=== PATIENT | female | born 1965 | race Caucasian/White ===

== ENCOUNTER → 2016-11-02 | Outpatient (CLI) | payer BC ==
[~2016-11-02] MED LIST: DULC5TAB PO; GABA-283 PO; GLYB5TAB5 PO; INSULANT SC; MAGN1TAB25 PO; NORCOBULK PO; VICT18IN SC; VOLT1GEL24 TD; flexeril PO
--- NOTE | 2016-11-25 00:54 | ECWPNPC ---
PATIENT NAME: ZULAY GARRETT : 1965 GENDER: FEMALE VISIT DATE: 11/02/2016 DISCHARGE DATE: 11/02/16 1235 VISIT LOCKED DATE TIME: PHYSICIAN: GLORIA HOYT RESOURCE: GLORIA HOYT REASON FOR APPOINTMENT 1. POST PROCEDURE, BACK HISTORY OF PRESENT ILLNESS HISTORY OF PRESENT ILLNESS: PAIN THE PATIENT DESCRIBES THE PAIN... FALL RISK SCREENING: SCREENING :NO FALLS IN THE PAST YEAR TODAY'S VISIT: NOTES: IS S/P LESB 10/04/16. RATES PAIN TODAY 8/10. NOTES PAIN HAS NOT IMPROVED. IS NOW HAVING INCREASED WEAKNESS, DECREASED SENSATION, AND INCREASED PAIN IN BACK. . CURRENT MEDICATIONS TAKING LANCETS FOR ONE TOUCH ULTRA 2 DEVICE MISCELLANEOUS DIRECTED SC DX : 250.02/ THREE TIMES DAILY, NOTES: USE NEEDED TAKING NOVOFINE 32G X 6 MM MISCELLANEOUS DIRECTED SQ DAILY, NOTES: USE NEEDED TAKING ACCU-CHEK JUAN JOSE TEST STRIP 1 SUBCUTANEOUSLY TWICE A DAY DX 250.00, NOTES: USE NEEDED TAKING BD INSULIN SYRINGE U-100 1 ML SYRINGE 1 EACH SUBCUTANEOUSLY DAILY DX 250.00, NOTES: USE NEEDED TAKING PEN NEEDLES 31G X 6 MM MISCELLANEOUS 1 NEEDLE SQ BEFORE BED, NOTES: USE NEEDED TAKING GLYBURIDE 5 MG TABLET 2 TABLET ORALLY TWICE A DAY NOT-TAKING NORCO 10-325 MG TABLET 1 TABLET ORALLY DAILY PRN PAIN MDD=1, NOTES: NONE IN LAST MONTH NOT-TAKING DRISDOL 50,000 UNITS TABLET 1 TABLET ORAL WEEKLY, NOTES: FEW WEEKS AGO NOT-TAKING MAGNESIUM 200 MG TABLET 2 TABLETS WITH A MEAL ORALLY ONCE A DAY, NOTES: NONE RECENTLY NOT-TAKING METFORMIN HCL 500 MG TABLET 2 TABLET WITH MEALS ORALLY TWICE A DAY, NOTES: 04/17/16@1600 NOT-TAKING DULCOLAX 5 MG TABLET DELAYED RELEASE 1 TABLET NEEDED ORALLY ONCE A DAY, NOTES: NONE RECENTLY NOT-TAKING COLACE 100 MG CAPSULE 1 TABLET ORALLY ONCE A DAY, NOTES: NONE RECENTLY NOT-TAKING VALIUM 10 MG TABLET 1 TABLET NEEDED ORALLY PREPROCEEDURE, NOTES: 04/18/16@0915 NOT-TAKING OXYCODONE HCL 10 MG TABLET 1 TABLET NEEDED ORALLY PREPROCEEDURE, NOTES: 04/18/16@0915 NOT-TAKING PERCOCET 5-325 MG TABLET 1 TABLET NEEDED ORALLY EVERY 6 HRS, NOTES: PRE SEDATE MEDICATION LIST REVIEWED AND RECONCILED WITH THE PATIENT PAST MEDICAL HISTORY OBESITY, MORBID, D/T EXCESS CALORIES HEPATOMEGALY 07/[address], 08/27 LIVER US WITH DIFFUSE FATTY INFILTRATION, NONALCOHOLIC MILD GASTROPARESIS NM 07/27 MRI LSPINE 01/25 - SM L PARACENTRAL DISC PROTRUSION AT L1-2 WITH MINIMAL THECAL SAC COMPRESSION, DIFFUSE DISC BULGE AT L4-5 WITH MINIMAL THECAL SAC COMPRESSION - DR JOHNSON H/O MRSA 07/24 EKG 06/23 - NL DM2 WITH H/O GESTATION DIABETES WITH GASTROPARESIS, [facility] INSULIN USE NONCOMPLIANCE DEPRESSION 04/28 CT CHEST WITH PULM NODULES, FOLLOWS WITH PULM 03/28 COLONOSCOPY, REINDL, REPEAT IN 2 YEARS SUBOPTIMAL PREP CLEMENCIA DEP CHRONIC PAIN, L SPINE, L ANKLE, L HIP VIT D DEF CHRONIC CONSTIPATION ALLERGIES AMITIZA: ANAPHYLAXIS: ALLERGY ETHYL ALCOHOL: RASH: ALLERGY METFORMIN HCL: DYSPNEA: ALLERGY SOCIAL HISTORY GENERAL: TOBACCO USE ARE YOU A:NONSMOKER LEARNING BARRIERS / SPECIAL NEEDS ORIENTED TO PLAN OF CARE: PATIENT, PAIN MANAGEMENT PATIENT, ORIENTED TO PLAN OF CARE: PATIENT, PAIN MANAGEMENT PATIENT. NEW PATIENT PAIN DIARY TODAY'S VISITNOTES FROM 0-10, WHAT LEVEL IS YOUR PAIN TODAY?0 PAIN CLINIC PFS, CLERGY, PUBLIC HEALTH REFERRALS PFS REFERRAL NEEDED?NO CLERGY REFERRAL NEEDED?NO PUBLIC HEALTH REFERRAL NEEDED?NO WAS THE PROVIDER NOTIFIED OF ANY PERTINENT INFO?NO PFS REFERRAL NEEDED?NO CLERGY REFERRAL NEEDED?NO PUBLIC HEALTH REFERRAL NEEDED?NO WAS THE PROVIDER NOTIFIED OF ANY PERTINENT INFO?NO REVIEW OF SYSTEMS CONSTITUTIONAL: ANY CHANGE IN YOUR MEDICAL CONDITION? NO . CHILLS NO . FEVER NO . INFECTION: DO YOU HAVE NEW INFECTIONS? NO . DO YOU HAVE HISTORY OF MRSA? NO . MUSCULOSKELETAL: ANY NEW PATTERNS OF PAIN OR NUMBNESS? YES, PAIN IN THE TOP AND BACK OF LEGS . GASTROENTEROLOGY: ANY NEW CHANGE IN BOWEL CONTROL? NO . GENITOURINARY: ANY NEW CHANGE IN BLADDER CONTROL? YES, FREQUENCY AND URGENCY . IS THERE A CHANCE YOU COULD BE ? NO . HEMATOLOGY/LYMPH: DO YOU TAKE ANY BLOOD THINNERS? (FOR EXAMPLE- COUMADIN, PLAVIX, AGGRENOX, PLATEL, PRADAXA, OR XARELTO) NO . WHEN WAS YOUR LAST DOSE? DATE: TIME: . NEUROLOGY: HAVE YOU FALLEN IN THE PAST 6 MONTHS? YES, LEGS GAVE OUT . ANY NEW EXTREMITY NUMBNESS OR WEAKNESS? YES, BOTH LEGS FEEL HEAVY AND WEAK ON OCCASION . CARDIOLOGY: DO YOU HAVE A PACEMAKER OR DEFIBRILLATOR? NO . RESPIRATORY: HAVE YOU BEEN SICK IN THE PAST WEEK? NO . FEVER NO . FLU LIKE SYMPTOMS? NO . COUGH NO . INTEGUMENTARY: DO YOU HAVE ANY RASHES OR OPEN SORES? YES, SORE IN THE MIDDLE OF BACK . ALLERGIC/IMMUNO: ARE YOU ALLERGIC TO SHELLFISH OR IV DYE? NO . ANY NEW ALLERGIES? NO . PSYCHIATRIC: DO YOU HAVE THOUGHTS OF HURTING YOURSELF OR SOMEONE ELSE? NO . ARE YOU ABUSED, NEGLECTED, OR IN AN UNSAFE ENVIRONMENT? NO . ENDOCRINOLOGY: ARE YOU DIABETIC? YES - 230-240 BLOOD SUGARS . OTHER: DO YOU NEED ANY PRESCRIPTIONS? NO . IF YES, PLEASE LIST: ____ . ANY NEW PROBLEMS WITH YOUR MEDICATIONS? NO . WHEN DID YOU LAST EAT? ____ . WHEN DID YOU LAST DRINK? ____ . WHAT DID YOU LAST DRINK? ____ . NAME OF PERSON DRIVING YOU HOME? ____ . DO YOU HAVE ANY OTHER QUESTIONS OR CONCERNS NO . REVIEWED BY: PROVIDER: GLORIA PAREDES . VITAL SIGNS WT 220 LBS, HT 64.5 IN, BMI 37.18 INDEX, BP 141/88 MM HG, HR 89 /MIN, RR 16 /MIN, TEMP 97.7 F, OXYGEN SAT % 96, NA INITIALS TL 1147, REVIEWED BY: CS. EXAMINATION GENERAL EXAMINATION: PSYCHALERT , ORIENTED X 3 , APPROPRIATE MOOD AND AFFECT . NECK:WELL HEALED CERVICAL INCISIOM. , LIMITED EXTENSION, LIMITED FLEXION, LIMITED ROTATION TO LEFT, LIMITED ROTATION TO RIGHT. LUNGS:CLEAR TO AUSCULTATION BILATERALLY. HEART:HEART RATE REGULAR. MUSCULOSKELETAL:EXQUISITE TENDERNESS OVER BILATERAL TROCANTERS. POINT TENDERNESS OVER LEFT SIJ. SLOW TO STAND . GAIT ANTALGIC. POSITIVE KAYLI SIGN LEFT.. ASSESSMENTS SPONDYLOSIS OF LUMBAR REGION WITHOUT MYELOPATHY OR RADICULOPATHY - M47.816 (PRIMARY) SPONDYLOSIS OF LUMBOSACRAL REGION WITHOUT MYELOPATHY OR RADICULOPATHY - M47.817 SACROILIITIS - M46.1 TREATMENT SPONDYLOSIS OF LUMBAR REGION WITHOUT MYELOPATHY OR RADICULOPATHY START VALIUM TABLET, 5 MG, 1 TABLET NEEDED, ORALLY, TAKE 1 TAB ONE HOUR PRIOR TO TEST, AND ONE TAB ON ARRIVAL FOR TEST MDD=2, 30 DAY(S), 2 [facility] MRI SPINE, L.S. WITHOUT [id number],SUSAN M 11/02/2016 12:19:44 PM > INCREASED RADICULAR PAIN NOTES: REST WHEN NEEDEDGO TO ER IF LOSS OF BOWEL OR BLADDER CONTROL, LOSS OF SENSATION IN LEGS, OR IN ABILITY TO EMPTY BLADDER. PROCEDURE CODES FA211 ESTABILISHED PATIENT [facility] CHARGE FOLLOW UP JANUARY (REASON: NEED PRIOR AUTH FOR MRI) ELECTRONICALLY SIGNED BY MICKEY PARSONS ON 11/24/2016 AT 09:41 AM EST DISCLAIMER : THIS IS A VISIT SUMMARY EXTRACTED FROM THE [employer] CHART. IT IS NOT A COPY OF THE [employer] PROGRESS NOTE. DUANE
== END ==
LOC: M PAIN 11:00
PROVIDERS: ATTEND Nurse Practitioner Family
DX: Z09 Encounter for follow-up examination after completed treatment for conditions other than malignant neoplasm (principal); G89.29 Other chronic pain; M47.816 Spondylosis without myelopathy or radiculopathy, lumbar region; M47.817 Spondylosis without myelopathy or radiculopathy, lumbosacral region; M46.1 Sacroiliitis, not elsewhere classified; E66.9 Obesity, unspecified; Z68.37 Body mass index [BMI] 37.0-37.9, adult; R16.0 Hepatomegaly, not elsewhere classified; M51.26 Other intervertebral disc displacement, lumbar region; E11.9 Type 2 diabetes mellitus without complications; F32.9 Major depressive disorder, single episode, unspecified; E55.9 Vitamin D deficiency, unspecified; J98.9 Respiratory disorder, unspecified; Z87.19 Personal history of other diseases of the digestive system; Z86.14 Personal history of Methicillin resistant Staphylococcus aureus infection; Z86.32 Personal history of gestational diabetes; Z87.891 Personal history of nicotine dependence; Z88.8 Allergy status to other drugs, medicaments and biological substances; Z79.84 Long term (current) use of oral hypoglycemic drugs; Z79.4 Long term (current) use of insulin

== ENCOUNTER → 2016-11-20 | Outpatient (CLI) | payer BC ==
--- NOTE | 2016-11-20 09:55 | REP ---
MRI LUMBAR SPINE WITHOUT CONTRAST: HISTORY: Back pain. COMPARISON: 02/01/2015. Decreased signal intensity on T2-weighted images is present in the L1-2 and L4-5 intervertebral discs. The discs are decreased in height. These findings are consistent with disc degeneration. A small left paracentral disc extrusion is present at the L1-2 level. There is __superior migration of disc material. There is minimal compression of the thecal sac. The L1 nerves exit the neural foramina without compression. There is no disc bulge or herniation at the L2-3, L3-4 and L5-S1 levels. There is hypertrophy of the posterior articulating facets at the L5-S1 level. The nerves exit the neural foramina without compression. A diffuse disc bulge and small left paracentral and intraforaminal disc protrusion are present at the L4-5 level. There is minimal compression of the thecal sac and left L5 nerve as it exits the thecal sac. There is hypertrophy of the posterior articulating facets. The L4 nerves exit the neural foramina without compression. The conus medullaris is normal in appearance terminating at the level of the L1-2 intervertebral disc. A hemangioma is present in the L1 vertebral body. Normal signal intensity is present in the remaining lumbar vertebral bodies. IMPRESSION: 1. Small left paracentral disc extrusion at the L1-2 level with minimal thecal sac compression. 2. Diffuse disc bulge and small left paracentral and intraforaminal disc protrusion at the L4-5 level with minimal compression of the thecal sac and left L5 nerve as it exits the thecal sac. There is no significant change compared to the previous study. Signed by Riley Elliott MD 11/20/2016 10:23 A
== END ==
LOC: M RAD 07:06
PROVIDERS: ATTEND Nurse Practitioner Family
DX: M51.26 Other intervertebral disc displacement, lumbar region (principal)

== ENCOUNTER → 2016-12-01 | Outpatient (CLI) | payer BC ==
--- NOTE | 2016-12-01 09:12 | REP ---
Clinical: Pulmonary nodules. Comparison: 04/15/2015, 12/23/2014, 07/06/2014. Findings: Few scattered bilateral pulmonary nodules measure up to 6 mm (image 68) which are relatively stable or now show small amounts of calcification. The lung villegas are otherwise well aerated, symmetric and clear. No acute consolidation, significant nodule or mass lesion is appreciated. No pleural effusion/reaction or pneumothorax. Tracheobronchial tree is patent. No adenopathy. Mediastinum demonstrates normal heart/pericardium and thoracic aorta. Surrounding musculoskeletal structures intact. Impression: 1. Small scattered nodules measuring up to 6 mm all appear stable and benign and unchanged or less ominous when compared to 07/06/2014. No further follow-up is required for these lesions. 2. No significant, new, acute mediastinal or pleuroparenchymal process. Signed by Edmond Wheeler MD 12/01/2016 09:03 A
== END ==
LOC: M RAD 07:02
PROVIDERS: ATTEND Internal Medicine Pulmonary Disease
DX: R91.8 Other nonspecific abnormal finding of lung field (principal)

== ENCOUNTER → 2016-12-05 | Outpatient (CLI) | payer BC ==
--- NOTE | 2016-12-07 23:51 | ECWPNPC ---
PATIENT NAME: ZULAY GARRETT : 1965 GENDER: FEMALE VISIT DATE: 12/05/2016 DISCHARGE DATE: 12/05/16 1013 VISIT LOCKED DATE TIME: PHYSICIAN: GLORIA HOYT RESOURCE: GLORIA HOYT REASON FOR APPOINTMENT 1. BACK/HIPS HISTORY OF PRESENT ILLNESS HISTORY OF PRESENT ILLNESS: PAIN THE PATIENT DESCRIBES THE PAIN... FALL RISK SCREENING: SCREENING :NO FALLS IN THE PAST YEAR TODAY'S VISIT: NOTES: HAS BEEN HAVING INCREASED PAIN OVER THE LAST FEW WEEKS. RATES PAIN TODAY 8/10. NOTES PAIN IS CENTERED IN LOW BACK WITH RADIATION TO BOTH LEGS. PAIN WAS CENTERED IN SACRUM AND HIPS WITH RADIATION TO LEGS. CAN ONLY SLEEP ON STOMACH. SLEEP HAS BEEN SEVERELY DISRUPTED OVER THE LAST 6-7 MONTHS. CAN NOT TURN ON SIDES AT ALL. COULD NOT WALK. THIGHS GO NUMB WHEN STANDING. FEELS IF CALVES ARE BULGINGLEGS GET SHAKEY WITH STANDING. NOTINE URINARY INCONTIANCE AND URGENCY. . CURRENT MEDICATIONS TAKING LANCETS FOR ONE TOUCH ULTRA 2 DEVICE MISCELLANEOUS DIRECTED SC DX : 250.02/ THREE TIMES DAILY, NOTES: USE NEEDED TAKING ACCU-CHEK JUAN JOSE TEST STRIP 1 SUBCUTANEOUSLY TWICE A DAY DX 250.00, NOTES: USE NEEDED TAKING BD INSULIN SYRINGE U-100 1 ML SYRINGE 1 EACH SUBCUTANEOUSLY DAILY DX 250.00, NOTES: USE NEEDED TAKING PEN NEEDLES 31G X 6 MM MISCELLANEOUS 1 NEEDLE SQ BEFORE BED, NOTES: USE NEEDED TAKING GLYBURIDE 5 MG TABLET 2 TABLET ORALLY TWICE A DAY NOT-TAKING NOVOFINE 32G X 6 MM MISCELLANEOUS DIRECTED SQ DAILY, NOTES: USE NEEDED NOT-TAKING VALIUM 5 MG TABLET 2 TABLET NEEDED ORALLY TAKE 1 TAB ONE HOUR PRIOR TO TEST, AND ONE TAB ON ARRIVAL FOR TEST MDD=2 NOT-TAKING NORCO 10-325 MG TABLET 1 TABLET ORALLY DAILY PRN PAIN MDD=1, NOTES: NONE IN LAST MONTH NOT-TAKING DRISDOL 50,000 UNITS TABLET 1 TABLET ORAL WEEKLY, NOTES: FEW WEEKS AGO NOT-TAKING MAGNESIUM 200 MG TABLET 2 TABLETS WITH A MEAL ORALLY ONCE A DAY, NOTES: NONE RECENTLY NOT-TAKING METFORMIN HCL 500 MG TABLET 2 TABLET WITH MEALS ORALLY TWICE A DAY, NOTES: 04/17/16@1600 NOT-TAKING DULCOLAX 5 MG TABLET DELAYED RELEASE 1 TABLET NEEDED ORALLY ONCE A DAY, NOTES: NONE RECENTLY NOT-TAKING COLACE 100 MG CAPSULE 1 TABLET ORALLY ONCE A DAY, NOTES: NONE RECENTLY NOT-TAKING VALIUM 10 MG TABLET 1 TABLET NEEDED ORALLY PREPROCEEDURE, NOTES: 04/18/16@0915 NOT-TAKING OXYCODONE HCL 10 MG TABLET 1 TABLET NEEDED ORALLY PREPROCEEDURE, NOTES: 04/18/16@0915 NOT-TAKING PERCOCET 5-325 MG TABLET 1 TABLET NEEDED ORALLY EVERY 6 HRS, NOTES: PRE SEDATE MEDICATION LIST REVIEWED AND RECONCILED WITH THE PATIENT PAST MEDICAL HISTORY OBESITY, MORBID, D/T EXCESS CALORIES HEPATOMEGALY 07/[address], 08/27 LIVER US WITH DIFFUSE FATTY INFILTRATION, NONALCOHOLIC MILD GASTROPARESIS NM 07/27 MRI LSPINE 01/25 - SM L PARACENTRAL DISC PROTRUSION AT L1-2 WITH MINIMAL THECAL SAC COMPRESSION, DIFFUSE DISC BULGE AT L4-5 WITH MINIMAL THECAL SAC COMPRESSION - DR JOHNSON H/O MRSA 07/24 EKG 06/23 - NL DM2 WITH H/O GESTATION DIABETES WITH GASTROPARESIS, [facility] INSULIN USE NONCOMPLIANCE DEPRESSION 04/28 CT CHEST WITH PULM NODULES, FOLLOWS WITH PULM 03/28 COLONOSCOPY, REINDL, REPEAT IN 2 YEARS SUBOPTIMAL PREP CLEMENCIA DEP CHRONIC PAIN, L SPINE, L ANKLE, L HIP VIT D DEF CHRONIC CONSTIPATION ALLERGIES AMITIZA: ANAPHYLAXIS: ALLERGY ETHYL ALCOHOL: RASH: ALLERGY METFORMIN HCL: DYSPNEA: ALLERGY SOCIAL HISTORY GENERAL: TOBACCO USE ARE YOU A:NONSMOKER LEARNING BARRIERS / SPECIAL NEEDS ORIENTED TO PLAN OF CARE: PATIENT, PAIN MANAGEMENT PATIENT, ORIENTED TO PLAN OF CARE: PATIENT, PAIN MANAGEMENT PATIENT. NEW PATIENT PAIN DIARY TODAY'S VISITNOTES FROM 0-10, WHAT LEVEL IS YOUR PAIN TODAY?0 PAIN CLINIC PFS, CLERGY, PUBLIC HEALTH REFERRALS PFS REFERRAL NEEDED?NO CLERGY REFERRAL NEEDED?NO PUBLIC HEALTH REFERRAL NEEDED?NO WAS THE PROVIDER NOTIFIED OF ANY PERTINENT INFO?NO PFS REFERRAL NEEDED?NO CLERGY REFERRAL NEEDED?NO PUBLIC HEALTH REFERRAL NEEDED?NO WAS THE PROVIDER NOTIFIED OF ANY PERTINENT INFO?NO REVIEW OF SYSTEMS CONSTITUTIONAL: ANY CHANGE IN YOUR MEDICAL CONDITION? YES, HAD CT OF LUNGS 12/01/16 . CHILLS NO . FEVER NO . INFECTION: DO YOU HAVE NEW INFECTIONS? NO . DO YOU HAVE HISTORY OF MRSA? NO . MUSCULOSKELETAL: ANY NEW PATTERNS OF PAIN OR NUMBNESS? YES, FEELS LIKE A TIGHT BULGE IN BOTH CALVES . GASTROENTEROLOGY: ANY NEW CHANGE IN BOWEL CONTROL? NO . GENITOURINARY: ANY NEW CHANGE IN BLADDER CONTROL? NO . IS THERE A CHANCE YOU COULD BE ? NO . HEMATOLOGY/LYMPH: DO YOU TAKE ANY BLOOD THINNERS? (FOR EXAMPLE- COUMADIN, PLAVIX, AGGRENOX, PLATEL, PRADAXA, OR XARELTO) NO . WHEN WAS YOUR LAST DOSE? DATE: TIME: . NEUROLOGY: HAVE YOU FALLEN IN THE PAST 6 MONTHS? YES 3 TIMES, NO INJURIES . ANY NEW EXTREMITY NUMBNESS OR WEAKNESS? NO . CARDIOLOGY: DO YOU HAVE A PACEMAKER OR DEFIBRILLATOR? NO . RESPIRATORY: HAVE YOU BEEN SICK IN THE PAST WEEK? NO . FEVER NO . FLU LIKE SYMPTOMS? NO . COUGH NO . INTEGUMENTARY: DO YOU HAVE ANY RASHES OR OPEN SORES? NO . ALLERGIC/IMMUNO: ARE YOU ALLERGIC TO SHELLFISH OR IV DYE? NO . ANY NEW ALLERGIES? NO . PSYCHIATRIC: DO YOU HAVE THOUGHTS OF HURTING YOURSELF OR SOMEONE ELSE? NO . ARE YOU ABUSED, NEGLECTED, OR IN AN UNSAFE ENVIRONMENT? NO . ENDOCRINOLOGY: ARE YOU DIABETIC? YES - 250-300. CAN NOT AFFORD ANY INSULIN . OTHER: DO YOU NEED ANY PRESCRIPTIONS? NO . IF YES, PLEASE LIST: ____ . ANY NEW PROBLEMS WITH YOUR MEDICATIONS? NO . WHEN DID YOU LAST EAT? ____ . WHEN DID YOU LAST DRINK? ____ . WHAT DID YOU LAST DRINK? ____ . NAME OF PERSON DRIVING YOU HOME? ____ . DO YOU HAVE ANY OTHER QUESTIONS OR CONCERNS NO . REVIEWED BY: PROVIDER: GLORIA PAREDES . VITAL SIGNS WT 214.0 LBS, HT 64.5 IN, BMI 36.16 INDEX, BP 154/87 MM HG, HR 91 /MIN, RR 16 /MIN, TEMP 96.7 F, OXYGEN SAT % 96%, NA INITIALS SC09:15, REVIEWED BY: AD. EXAMINATION GENERAL EXAMINATION: PSYCHALERT , ORIENTED X 3 , APPROPRIATE MOOD AND AFFECT . NECK:WELL HEALED CERVICAL INCISIOM. , LIMITED EXTENSION, LIMITED FLEXION, LIMITED ROTATION TO LEFT, LIMITED ROTATION TO RIGHT. LUNGS:CLEAR TO AUSCULTATION BILATERALLY. HEART:HEART RATE REGULAR. MUSCULOSKELETAL:EXQUISITE TENDERNESS OVER BILATERAL TROCANTERS. POINT TENDERNESS OVER LEFT SIJ. SLOW TO STAND . GAIT ANTALGIC. POSITIVE KAYLI SIGN LEFT.. ASSESSMENTS SPONDYLOSIS OF LUMBAR REGION WITHOUT MYELOPATHY OR RADICULOPATHY - M47.816 (PRIMARY) SPONDYLOSIS OF LUMBOSACRAL REGION WITHOUT MYELOPATHY OR RADICULOPATHY - M47.817 SACROILIITIS - M46.1 PAIN IN LEFT HIP - M25.552 PAIN IN RIGHT HIP - M25.551 TREATMENT SPONDYLOSIS OF LUMBAR REGION WITHOUT MYELOPATHY OR RADICULOPATHY START MELOXICAM TABLET, 7.5 MG, 1 TABLET, ORALLY, BID WITH FOOD, 30 DAY(S), REFILLS 1 LRY HIP COMPLETE (AP/LAT)[id number] HOYT 12/05/2016 9:56:58 AM > BILATERAL HIP PAIN, LOSS OF ROM NOTES: ICE PACKS TO HIPS NEEDED. PROCEDURE CODES FA211 ESTABILISHED PATIENT [facility] FACILITY CHARGE DISPOSITION & COMMUNICATION FOLLOW UP 3-4 WEEKS ELECTRONICALLY SIGNED BY MICKEY PARSONS ON 12/07/2016 AT 12:55 PM EST DISCLAIMER : THIS IS A VISIT SUMMARY EXTRACTED FROM THE [employer] CHART. IT IS NOT A COPY OF THE [employer] PROGRESS NOTE. DUANE
== END ==
LOC: M PAIN 09:20
PROVIDERS: ATTEND Nurse Practitioner Family
DX: M47.816 Spondylosis without myelopathy or radiculopathy, lumbar region (principal); G89.29 Other chronic pain; M47.817 Spondylosis without myelopathy or radiculopathy, lumbosacral region; M46.1 Sacroiliitis, not elsewhere classified; M25.552 Pain in left hip; M25.551 Pain in right hip; Z79.84 Long term (current) use of oral hypoglycemic drugs; Z79.899 Other long term (current) drug therapy; E55.9 Vitamin D deficiency, unspecified; E11.9 Type 2 diabetes mellitus without complications; Z88.8 Allergy status to other drugs, medicaments and biological substances

== ENCOUNTER 2016-12-11 11:04 | Emergency (ER) | payer BC ==
[2016-12-11] MEDS ORDERED: KETOROLAC 30 MG/ML VIAL (J1885) As Ordered ONE (11:43)
[2016-12-11 12:26] LABS: ANION GAP 9 MEQ/L (8-16); BLOOD UREA NITROGEN 8 MG/DL (7-18); CARBON DIOXIDE LEVEL 27 MEQ/L (21-32); CHLORIDE LEVEL 97 MEQ/L (98-107); CREATININE FOR GFR 0.62 MG/DL (0.55-1.02); GLOMERULAR FILTRATION RATE > 60.0 (>51); GLUCOSE, FASTING 234 MG/DL (70-105); POTASSIUM SERUM 3.4 MEQ/L (3.5-5.1); SODIUM LEVEL 133 MEQ/L (136-145)
[2016-12-11 12:28] LABS: BASO % 0.4 % (0.0-1.0); LARGE UNSTAINED CELL # 0.1 K/mm3 (0.0-0.4); LARGE UNSTAINED CELL % 2.3 % (0.0-4.0); LYMPH # 1.1 K/mm3 (1.5-4.5); LYMPH % 33.7 % (24.0-44.0); MEAN CORPUSCULAR HEMOGLOBIN 30.9 pg (27.0-33.0); MEAN CORPUSCULAR HGB CONC 34.8 g/dl (32.0-36.5); MEAN CORPUSCULAR VOLUME 88.7 fl (80.0-96.0); MONO # 0.3 K/mm3 (0.0-0.8); MONO % 9.8 % (0.0-5.0); NEUTROPHILS # 1.5 K/mm3 (1.8-7.7); NEUTROPHILS % 52.7 % (36.0-66.0); PLATELET COUNT, AUTOMATED 172 k/mm3 (150-450); RED CELL DISTRIBUTION WIDTH 11.6 % (11.5-14.5); WHITE BLOOD COUNT 2.9 K/mm3 (4.0-10.0)
[2016-12-11 13:06] LABS: ERYTHROCYTE SEDIMENTATION RATE 25 mm/hr (0-30)
--- NOTE | 2016-12-11 14:50 | EDDOCDS ---
Physician Documentation [facility] Name: Christiane King Age: 51 yrs Sex: Female : 1965 Arrival Date: 12/11/2016 Time: 11:04 Bed I2 / M2 Private MD: DAY COLON Disposition: 12/11/16 14:38 Discharged to Home/Self Care. Impression: Low back pain - Chronic progession. - Condition is Stable. - Discharge Instructions: Chronic Back Pain. - Medication Reconciliation form. - Follow up: DAY COLON; When: Call to arrange an appointment; Reason: Wound/Symptom Recheck, Recheck today's complaints, Worsening of conditions, Continuance of care. - Problem is chronic. - Symptoms have improved. - Notes: Follow up with pain management as discussed. Historical: - Allergies: anything that contains alcoholdifficulty breathing; metformin; - Home Meds: 1. glyburide 5 mg Oral tab 2 tabs 2 times per day (Last dose: 12/10/2016) 2. Zithromax Z-Dipesh 250 mg Oral tab 1 tab once daily - PMHx: lung nudules; Diabetes - NIDDM: controlled; - PSHx: neck surgery; ankle surgery; Cholecystectomy; Hysterectomy; Oophorectomy- bilateral (May 20, 2013); Cesearean Section; - Social history: Smoking status: Patient uses tobacco products, current every day smoker. No barriers to communication noted, The patient speaks fluent Bots[place], Speaks appropriately for age. - Family history: Not pertinent. - : The pt / caregiver states he / she is not on anticoagulants. Home medication list is obtained from the patient. - Exposure Risk Screening:: None identified. RESOURCE SPECIALIST: 12/11 11:12 LMP N/A - Hysterectomy ead Vital Signs: 11:05 BP 128 / 86; Pulse 95; Resp 18; Temp 98.7(O); Pulse Ox 98% on R/A; Weight 97.07 kg / lr2 214 lbs (R); Height 5 ft. 4 in. (162.56 cm) (R); Pain 10/10; 14:46 BP 108 / 58; Pulse 76; Resp 20; Temp 97.8(O); Pain 0/10; dls 11:05 Body Mass Index 36.73 (97.07 kg, 162.56 cm) lr2 MDM: 11:34 Financial registration complete. lg 11:38 [facility] Payment Agreement was scanned into [email or web address] and attached to record. lg 11:40 IV Saline Lock ordered. cc10 11:40 Undress patient appropriately for examination ordered. cc10 11:40 NS 0.9% 1000 ml IV at 250 mL/hr continuous ordered. cc10 11:40 CBC with Diff Ordered. EDMS 11:40 BMP Ordered. EDMS 11:40 A1C Ordered. EDMS 11:40 UA Ordered. EDMS 11:41 ketorolac 30 mg IVP once ordered. cc10 12:03 ERYTHROCYTE SEDIMENTATION RATE Ordered. EDMS 12:03 C REACTIVE PROTEIN QUANTITATIV Ordered. EDMS 13:29 CBC with Diff Reviewed. cc10 13:29 BMP Reviewed. cc10 13:29 A1C Reviewed. cc10 13:29 C REACTIVE PROTEIN QUANTITATIV Reviewed. cc10 13:29 ERYTHROCYTE SEDIMENTATION RATE Reviewed. cc10 Administered Medications: 11:55 Drug: NS 0.9% 1000 ml [sodium chloride 0.9 % intravenous solution] Route: IV; Rate: 250 dls mL/hr; Site: left antecubital; 11:55 Drug: ketorolac 30 mg [ketorolac 30 mg/mL (1 mL) injection solution (1 mL)] Route: IVP; dls Site: left antecubital; Signatures: Dispatcher [facility] EDClifford Easton RN RN jmk Scott, Debra, RN RN dls Ganter, LoriLee, Reg Reg lg Dunaway, Emily, RN RN ead Coniski, Colin, PA-C PAEdwin cc10 The chart was reviewed and I authenticate all verbal orders and agree with the evaluation and treatment provided.Corrections: (The following items were deleted from the chart) 12:03 11:41 C REACTIVE PROTEIN QUANTITATIV+LAB ordered. EDMS EDMS 12:03 11:41 ERYTHROCYTE SEDIMENTATION RATE+LAB ordered. EDMS EDMS 14:16 14:07 Bladder Scan please ordered. cc10 cc10 Attachments: 11:38 [facility] Payment Agreement lg MTDD
--- NOTE | 2016-12-11 14:50 | EDDOCDS ---
Nurse's Notes [facility] Name: Christiane King Age: 51 yrs Sex: Female : 1965 Arrival Date: 12/11/2016 Time: 11:04 Bed I2 / M2 Private MD: DAY COLON Diagnosis: Low back pain-Chronic progession Presentation: 12/11 11:07 Presenting complaint: Patient states: pt c/o bilateral hip pain, denies known injury. ead reports pain radiates down legs. states pain ongoing for approx 1 year, worsening over the past two days. family member reports "she's been falling a lot lately," pt reports episodes of dizziness with falls. states "I can't empty my bladder when I go to the bathroom.". Adult Sepsis Screening: The patient does not have new or worsening altered mentation. Patient's respiratory rate is less than 22. Systolic blood pressure is greater than 100. Patient has a qSOFA score of 0- Negative Sepsis Screen. Suicide/Homicide risk assessment- the patient denies having any suicidal and/or homicidal ideations and does not present with any other emotional, behavioral or mental health complaints. Status: Patient is not a rn social services or dependent. Transition of care: patient was not received from another setting of care. 11:07 Acuity: LAMAR Level 3 ead 11:07 Method Of Arrival: Wheelchair ead Triage Assessment: 11:12 General: Appears in no apparent distress, Behavior is appropriate for age, cooperative. ead Pain: Location: left hip and right hip Pain currently is 10 out of 10 on a pain scale. HIV screening NA for this visit Offered previously. Neurological: Level of Consciousness is awake, alert, obeys commands, Oriented to person, place, time, Reports dizziness. Respiratory: Airway is patent Respiratory effort is even, unlabored. Derm: Skin is pink, warm & dry. Musculoskeletal: Reports pain in left hip and right hip. SCHEDULE MANAGER: 11:12 LMP N/A - Hysterectomy ead Historical: - Allergies: anything that contains alcoholdifficulty breathing; metformin; - Home Meds: 1. glyburide 5 mg Oral tab 2 tabs 2 times per day (Last dose: 12/10/2016) 2. Zithromax Z-Dipesh 250 mg Oral tab 1 tab once daily - PMHx: lung nudules; Diabetes - NIDDM: controlled; - PSHx: neck surgery; ankle surgery; Cholecystectomy; Hysterectomy; Oophorectomy- bilateral (May 20, 2013); Cesearean Section; - Social history: Smoking status: Patient uses tobacco products, current every day smoker. No barriers to communication noted, The patient speaks fluent Nigerien, Speaks appropriately for age. - Family history: Not pertinent. - : The pt / caregiver states he / she is not on anticoagulants. Home medication list is obtained from the patient. - Exposure Risk Screening:: None identified. Screenin:49 Screening information is obtained from the patient. Fall risk: No risks identified. jmk Assistance ADL's: requires no assistance with activities of daily living. Abuse/DV Screen: The patient / caregiver reports he/she is: not in a situation that causes fear, pain or injury. Nutritional screening: No deficits noted. Advance Directives: Currently, there is no health care proxy. There is no active DNR order. There is no living will. There is no Power of Senior Environmental Technician. Advance directive information has not previously been placed in an [facility] medical record. home support is adequate. Assessment: 11:58 General: Appears in no apparent distress, appears unkept. Obese female. skin warm and jmk dry color satisfactory. Indicates bilateral low back pain with increasing intensity Reports inability to produce urine specimen.. 12:47 General: Appears states pain to low back area has decreased to 3/10 " as long as not jmk moving". presently sitting in upright position as position of comfort. still unable to produce urine spec.. Vital Signs: 11:05 BP 128 / 86; Pulse 95; Resp 18; Temp 98.7(O); Pulse Ox 98% on R/A; Weight 97.07 kg (R); lr2 Height 5 ft. 4 in. (162.56 cm) (R); Pain 10/10; 14:46 BP 108 / 58; Pulse 76; Resp 20; Temp 97.8(O); Pain 0/10; dls 11:05 Body Mass Index 36.73 (97.07 kg, 162.56 cm) lr2 Vitals: 11:05 Log In Time: December 11, 2016 at 11:04. lr2 ED Course: 11:05 Patient visited by Katherine Byers. lr2 11:05 Patient moved to Waiting lr2 11:06 DAY COLON is Private Physician. lr2 11:06 Patient moved to Pre RCE lr2 11:10 Triage Initiated ead 11:14 Patient moved to Triage 2 [facility] 11:33 Min Cho [facility]. cc10 11:33 Amaury Alfonso MD is Attending Physician. cc10 11:33 Patient visited by Min Cho PA-C. cc10 11:33 Patient visited by Min Cho PA-C. cc10 11:38 [facility] Payment Agreement was scanned into [employer] and attached to record. lg 11:41 Patient moved to I2 / M2 jam1 12:00 Inserted saline lock: 20 gauge in right antecubital area. jmk 12:02 A1C Sent. jmk 12:02 BMP Sent. jmk 12:02 CBC with Diff Sent. jmk 12:48 Patient visited by Clifford Gr RN. jmk 12:49 The patient / caregiver is instructed regarding the plan of care and ED course. jmk 14:11 UA Sent. jam1 14:37 DAY COLON is Referral Physician. cc10 14:45 Discontinued IV lock intact, bleeding controlled, pressure dressing applied. No dls procedures done that require assistance. Administered Medications: 11:55 Drug: NS 0.9% 1000 ml [sodium chloride 0.9 % intravenous solution] Route: IV; Rate: 250 dls mL/hr; Site: left antecubital; 11:55 Drug: ketorolac 30 mg [ketorolac 30 mg/mL (1 mL) injection solution (1 mL)] Route: IVP; dls Site: left antecubital; Order Results: Lab Order: CBC with Diff; SPEC'M 12/11/16 11:50 Test: WHITE BLOOD COUNT; Value: 2.9; Range: 4.0-10.0; Abnormal: Below low normal; Units: K/mm3; Status: F Test: RED BLOOD COUNT; Value: 5.03; Range: 4.00-5.40; Units: M/mm3; Status: F Test: HEMOGLOBIN; Value: 15.5; Range: 12.0-16.0; Units: g/dl; Status: F Test: HEMATOCRIT; Value: 44.6; Range: 36.0-47.0; Units: %; Status: F Test: MEAN CORPUSCULAR VOLUME; Value: 88.7; Range: 80.0-96.0; Units: fl; Status: F Test: MEAN CORPUSCULAR HEMOGLOBIN; Value: 30.9; Range: 27.0-33.0; Units: pg; Status: F Test: MEAN CORPUSCULAR HGB CONC; Value: 34.8; Range: 32.0-36.5; Units: g/dl; Status: F Test: RED CELL DISTRIBUTION WIDTH; Value: 11.6; Range: 11.5-14.5; Units: %; Status: F Test: PLATELET COUNT, AUTOMATED; Value: 172; Range: 150-450; Units: k/mm3; Status: F Test: NEUTROPHILS %; Value: 52.7; Range: 36.0-66.0; Units: %; Status: F Test: LYMPH %; Value: 33.7; Range: 24.0-44.0; Units: %; Status: F Test: MONO %; Value: 9.8; Range: 0.0-5.0; Abnormal: Above high normal; Units: %; Status: F Test: EOS %; Value: 1.0; Range: 0.0-3.0; Units: %; Status: F Test: BASO %; Value: 0.4; Range: 0.0-1.0; Units: %; Status: F Test: LARGE UNSTAINED CELL %; Value: 2.3; Range: 0.0-4.0; Units: %; Status: F Test: NEUTROPHILS #; Value: 1.5; Range: 1.8-7.7; Abnormal: Below low normal; Units: K/mm3; Status: F Test: LYMPH #; Value: 1.1; Range: 1.5-4.5; Abnormal: Below low normal; Units: K/mm3; Status: F Test: MONO #; Value: 0.3; Range: 0.0-0.8; Units: K/mm3; Status: F Test: EOS #; Value: 0.0; Range: 0.0-0.50; Units: K/mm3; Status: F Test: BASO #; Value: 0.0; Range: 0.0-0.2; Units: K/mm3; Status: F Test: LARGE UNSTAINED CELL #; Value: 0.1; Range: 0.0-0.4; Units: K/mm3; Status: F Lab Order: BMP; 12/11/16 11:50 Test: GLUCOSE, FASTING; Value: 234; Range: 70-105; Abnormal: Above high normal; Units: MG/DL; Status: F Test: BLOOD UREA NITROGEN; Value: 8; Range: 7-18; Units: MG/DL; Status: F Test: CREATININE FOR GFR; Value: 0.62; Range: 0.55-1.02; Units: MG/DL; Status: F Test: GLOMERULAR FILTRATION RATE; Value: > 60.0; Range: >51; Status: F Test: SODIUM LEVEL; Value: 133; Range: 136-145; Abnormal: Below low normal; Units: MEQ/L; Status: F Test: POTASSIUM SERUM; Value: 3.4; Range: 3.5-5.1; Abnormal: Below low normal; Units: MEQ/L; Status: F Test: CHLORIDE LEVEL; Value: 97; Range: 98-107; Abnormal: Below low normal; Units: MEQ/L; Status: F Test: CARBON DIOXIDE LEVEL; Value: 27; Range: 21-32; Units: MEQ/L; Status: F Test: ANION GAP; Value: 9; Range: 8-16; Units: MEQ/L; Status: F Test: CALCIUM LEVEL; Value: 8.0; Range: 8.5-10.1; Abnormal: Below low normal; Units: MG/DL; Status: F Test Note: ; Units are mL/min/1.73 m2 Chronic Kidney Disease Staging per NKF: Stage I & II GFR >=60 Normal to Mildly Decreased Stage III GFR 30-59 Moderately Decreased Stage IV GFR 15-29 Severely Decreased Stage V GFR <15 Very Little GFR Left ESRD GFR <15 on FABRIC AND ACCESSORIES ESTIMATOR Lab Order: A1C; 12/11/16 11:47 Test: HEMOGLOBIN A1c; Value: 11.7; Range: 4.5-6.2; Abnormal: Above high normal; Units: %; Status: F Test: ESTIMATED AVERAGE GLUCOSE; Value: 289; Range: 60-110; Abnormal: Above high normal; Units: MG/DL; Status: F Lab Order: UA; 12/11/16 14:06 Test: APPEARANCE, URINE; Value: HAZY; Range: CLEAR; Status: F Test: COLOR, URINE; Value: YELLOW; Range: YELLOW; Status: F Test: PH,URINE; Value: 6.0; Range: 5.0-9.0; Units: UNITS; Status: F Test: SPECIFIC GRAVITY URINE AUTO; Value: 1.015; Range: 1.002-1.035; Status: F Test: PROTEIN, URINE AUTO; Value: NEGATIVE; Range: NEGATIVE; Units: mg/dL; Status: F Test: GLUCOSE, URINE (UA) AUTO; Value: 2+; Range: NEGATIVE; Abnormal: Above high normal; Units: mg/dL; Status: F Test: KETONE, URINE AUTO; Value: 1+; Range: NEGATIVE; Abnormal: Above high normal; Units: mg/dL; Status: F Test: UROBILINOGEN, URINE AUTO; Value: 0.2; Range: 0.0-2.0; Units: mg/dL; Status: F Test: BILIRUBIN, URINE AUTO; Value: NEGATIVE; Range: NEGATIVE; Status: F Test: NITRITE, URINE AUTO; Value: NEGATIVE; Range: NEGATIVE; Status: F Test: LEUKOCYTE ESTERASE, URINE AUTO; Value: NEGATIVE; Range: NEGATIVE; Status: F Test: BLOOD, URINE BLOOD; Value: NEGATIVE; Range: NEGATIVE; Status: F Test: WBC, URINE AUTO; Value: 4; Range: 0-3; Abnormal: Above high normal; Units: /HPF; Status: F Test: RBC, URINE AUTO; Value: 2; Range: 0-3; Units: /HPF; Status: F Test: BACTERIA, URINE AUTO; Value: NEGATIVE; Range: NEGATIVE; Status: F Test: SQUAMOUS EPITHELIAL CELL UR AU; Value: 4; Range: 0-6; Units: /HPF; Status: F Test: MUCUS, URINE; Value: SMALL; Range: NEGATIVE; Status: F Test: HYALINE CAST, URINE AUTO; Value: 1; Range: 0-1; Units: /LPF; Status: F Lab Order: ERYTHROCYTE SEDIMENTATION RATE; SPEC' 12/11/16 11:50 Test: ERYTHROCYTE SEDIMENTATION RATE; Value: 25; Range: 0-30; Units: mm/hr; Status: F Lab Order: C REACTIVE PROTEIN QUANTITATIV; SPEC' 02/27/17 11:50 Test: C REACTIVE PROTEIN QUANTITATIV; Value: 0.87; Range: 0.00-0.30; Abnormal: Above high normal; Units: MG/DL; Status: F Outcome: 14:38 Discharge ordered by Provider. cc10 14:46 Discharge Assessment: Patient awake, alert and oriented x 3. No cognitive and/or dls functional deficits noted. Patient verbalized understanding of disposition instructions. patient administered narcotics - no. The following High Risk Discharge criteria are identified: None. Discharged to home ambulatory, with friend. Condition: stable Condition: improved. Discharge instructions given to patient, Instructed on discharge instructions, follow up and referral plans. Demonstrated understanding of instructions, Pt was receptive of discharge instructions/ teaching. No special radiology studies were completed. Property sent home with patient. 14:48 Patient left the ED. dls Signatures: Keiko Marquez, RN RN Clifford Pond,RN RN Flower Cuevas RN RN dls Aury Ponce, FIELD FOREMAN FIELD FOREMAN jam1 Matilda Key, Reg Reg Mi JaramilloRN RN Min Monreal, PA-Amol PA-C cc10 Katherine Byers lr2 Corrections: (The following items were deleted from the chart) 12:03 12:02 ERYTHROCYTE SEDIMENTATION RATE+LAB sent. dee EDMS 12:03 12:02 C REACTIVE PROTEIN QUANTITATIV+LAB sent. dee EDMS DUANE
--- NOTE | 2016-12-13 15:50 | EDDOCDS ---
Nurse's Notes [facility] Name: Christiane King Age: 51 yrs Sex: Female : 1965 Arrival Date: 12/11/2016 Time: 11:04 Bed I2 / M2 Private MD: DAY COLON Diagnosis: Low back pain-Chronic progession Presentation: 12/11 11:07 Presenting complaint: Patient states: pt c/o bilateral hip pain, denies known injury. ead reports pain radiates down legs. states pain ongoing for approx 1 year, worsening over the past two days. family member reports "she's been falling a lot lately," pt reports episodes of dizziness with falls. states "I can't empty my bladder when I go to the bathroom.". Adult Sepsis Screening: The patient does not have new or worsening altered mentation. Patient's respiratory rate is less than 22. Systolic blood pressure is greater than 100. Patient has a qSOFA score of 0- Negative Sepsis Screen. Suicide/Homicide risk assessment- the patient denies having any suicidal and/or homicidal ideations and does not present with any other emotional, behavioral or mental health complaints. Status: Patient is not a consulting services manager or dependent. Transition of care: patient was not received from another setting of care. 11:07 Acuity: LAMAR Level 3 ead 11:07 Method Of Arrival: Wheelchair ead Triage Assessment: 11:12 General: Appears in no apparent distress, Behavior is appropriate for age, cooperative. ead Pain: Location: left hip and right hip Pain currently is 10 out of 10 on a pain scale. HIV screening NA for this visit Offered previously. Neurological: Level of Consciousness is awake, alert, obeys commands, Oriented to person, place, time, Reports dizziness. Respiratory: Airway is patent Respiratory effort is even, unlabored. Derm: Skin is pink, warm & dry. Musculoskeletal: Reports pain in left hip and right hip. ONCOLOGY RADIATION PHYSICIAN: 11:12 LMP N/A - Hysterectomy ead Historical: - Allergies: anything that contains alcoholdifficulty breathing; metformin; - Home Meds: 1. glyburide 5 mg Oral tab 2 tabs 2 times per day (Last dose: 12/10/2016) 2. Zithromax Z-Dipesh 250 mg Oral tab 1 tab once daily - PMHx: lung nudules; Diabetes - NIDDM: controlled; - PSHx: neck surgery; ankle surgery; Cholecystectomy; Hysterectomy; Oophorectomy- bilateral (May 20, 2013); Cesearean Section; - Social history: Smoking status: Patient uses tobacco products, current every day smoker. No barriers to communication noted, The patient speaks fluent Sammarinese, Speaks appropriately for age. - Family history: Not pertinent. - : The pt / caregiver states he / she is not on anticoagulants. Home medication list is obtained from the patient. - Exposure Risk Screening:: None identified. Screenin:49 Screening information is obtained from the patient. Fall risk: No risks identified. jmk Assistance ADL's: requires no assistance with activities of daily living. Abuse/DV Screen: The patient / caregiver reports he/she is: not in a situation that causes fear, pain or injury. Nutritional screening: No deficits noted. Advance Directives: Currently, there is no health care proxy. There is no active DNR order. There is no living will. There is no Power of Health Program Manager. Advance directive information has not previously been placed in an [facility] medical record. home support is adequate. Assessment: 11:58 General: Appears in no apparent distress, appears unkept. Obese female. skin warm and jmk dry color satisfactory. Indicates bilateral low back pain with increasing intensity Reports inability to produce urine specimen.. 12:47 General: Appears states pain to low back area has decreased to 3/10 " as long as not jmk moving". presently sitting in upright position as position of comfort. still unable to produce urine spec.. Vital Signs: 11:05 BP 128 / 86; Pulse 95; Resp 18; Temp 98.7(O); Pulse Ox 98% on R/A; Weight 97.07 kg (R); lr2 Height 5 ft. 4 in. (162.56 cm) (R); Pain 10/10; 14:46 BP 108 / 58; Pulse 76; Resp 20; Temp 97.8(O); Pain 0/10; dls 11:05 Body Mass Index 36.73 (97.07 kg, 162.56 cm) lr2 Vitals: 11:05 Log In Time: December 11, 2016 at 11:04. lr2 ED Course: 11:05 Patient visited by Katherine Byers. lr2 11:05 Patient moved to Waiting lr2 11:06 DAY COLON is Private Physician. lr2 11:06 Patient moved to Pre RCE lr2 11:10 Triage Initiated ead 11:14 Patient moved to Triage 2 [facility] 11:33 Min Cho [facility]. cc10 11:33 Amaury Alfonso MD is Attending Physician. cc10 11:33 Patient visited by Min Cho PA-C. cc10 11:33 Patient visited by Min Cho PA-C. cc10 11:38 [facility] Payment Agreement was scanned into [employer] and attached to record. lg 11:41 Patient moved to I2 / M2 jam1 12:00 Inserted saline lock: 20 gauge in right antecubital area. jmk 12:02 A1C Sent. jmk 12:02 BMP Sent. jmk 12:02 CBC with Diff Sent. jmk 12:48 Patient visited by Clifford Gr RN. jmk 12:49 The patient / caregiver is instructed regarding the plan of care and ED course. jmk 14:11 UA Sent. jam1 14:37 DAY COLON is Referral Physician. cc10 14:45 Discontinued IV lock intact, bleeding controlled, pressure dressing applied. No dls procedures done that require assistance. Administered Medications: 11:55 Drug: NS 0.9% 1000 ml [sodium chloride 0.9 % intravenous solution] Route: IV; Rate: 250 dls mL/hr; Site: left antecubital; 11:55 Drug: ketorolac 30 mg [ketorolac 30 mg/mL (1 mL) injection solution (1 mL)] Route: IVP; dls Site: left antecubital; Order Results: Lab Order: CBC with Diff; SPEC'M 12/11/16 11:50 Test: WHITE BLOOD COUNT; Value: 2.9; Range: 4.0-10.0; Abnormal: Below low normal; Units: K/mm3; Status: F Test: RED BLOOD COUNT; Value: 5.03; Range: 4.00-5.40; Units: M/mm3; Status: F Test: HEMOGLOBIN; Value: 15.5; Range: 12.0-16.0; Units: g/dl; Status: F Test: HEMATOCRIT; Value: 44.6; Range: 36.0-47.0; Units: %; Status: F Test: MEAN CORPUSCULAR VOLUME; Value: 88.7; Range: 80.0-96.0; Units: fl; Status: F Test: MEAN CORPUSCULAR HEMOGLOBIN; Value: 30.9; Range: 27.0-33.0; Units: pg; Status: F Test: MEAN CORPUSCULAR HGB CONC; Value: 34.8; Range: 32.0-36.5; Units: g/dl; Status: F Test: RED CELL DISTRIBUTION WIDTH; Value: 11.6; Range: 11.5-14.5; Units: %; Status: F Test: PLATELET COUNT, AUTOMATED; Value: 172; Range: 150-450; Units: k/mm3; Status: F Test: NEUTROPHILS %; Value: 52.7; Range: 36.0-66.0; Units: %; Status: F Test: LYMPH %; Value: 33.7; Range: 24.0-44.0; Units: %; Status: F Test: MONO %; Value: 9.8; Range: 0.0-5.0; Abnormal: Above high normal; Units: %; Status: F Test: EOS %; Value: 1.0; Range: 0.0-3.0; Units: %; Status: F Test: BASO %; Value: 0.4; Range: 0.0-1.0; Units: %; Status: F Test: LARGE UNSTAINED CELL %; Value: 2.3; Range: 0.0-4.0; Units: %; Status: F Test: NEUTROPHILS #; Value: 1.5; Range: 1.8-7.7; Abnormal: Below low normal; Units: K/mm3; Status: F Test: LYMPH #; Value: 1.1; Range: 1.5-4.5; Abnormal: Below low normal; Units: K/mm3; Status: F Test: MONO #; Value: 0.3; Range: 0.0-0.8; Units: K/mm3; Status: F Test: EOS #; Value: 0.0; Range: 0.0-0.50; Units: K/mm3; Status: F Test: BASO #; Value: 0.0; Range: 0.0-0.2; Units: K/mm3; Status: F Test: LARGE UNSTAINED CELL #; Value: 0.1; Range: 0.0-0.4; Units: K/mm3; Status: F Lab Order: BMP; 12/11/16 11:50 Test: GLUCOSE, FASTING; Value: 234; Range: 70-105; Abnormal: Above high normal; Units: MG/DL; Status: F Test: BLOOD UREA NITROGEN; Value: 8; Range: 7-18; Units: MG/DL; Status: F Test: CREATININE FOR GFR; Value: 0.62; Range: 0.55-1.02; Units: MG/DL; Status: F Test: GLOMERULAR FILTRATION RATE; Value: > 60.0; Range: >51; Status: F Test: SODIUM LEVEL; Value: 133; Range: 136-145; Abnormal: Below low normal; Units: MEQ/L; Status: F Test: POTASSIUM SERUM; Value: 3.4; Range: 3.5-5.1; Abnormal: Below low normal; Units: MEQ/L; Status: F Test: CHLORIDE LEVEL; Value: 97; Range: 98-107; Abnormal: Below low normal; Units: MEQ/L; Status: F Test: CARBON DIOXIDE LEVEL; Value: 27; Range: 21-32; Units: MEQ/L; Status: F Test: ANION GAP; Value: 9; Range: 8-16; Units: MEQ/L; Status: F Test: CALCIUM LEVEL; Value: 8.0; Range: 8.5-10.1; Abnormal: Below low normal; Units: MG/DL; Status: F Test Note: ; Units are mL/min/1.73 m2 Chronic Kidney Disease Staging per NKF: Stage I & II GFR >=60 Normal to Mildly Decreased Stage III GFR 30-59 Moderately Decreased Stage IV GFR 15-29 Severely Decreased Stage V GFR <15 Very Little GFR Left ESRD GFR <15 on NICKING MACHINE OPERATOR Lab Order: A1C; 12/11/16 11:47 Test: HEMOGLOBIN A1c; Value: 11.7; Range: 4.5-6.2; Abnormal: Above high normal; Units: %; Status: F Test: ESTIMATED AVERAGE GLUCOSE; Value: 289; Range: 60-110; Abnormal: Above high normal; Units: MG/DL; Status: F Lab Order: UA; 12/11/16 14:06 Test: APPEARANCE, URINE; Value: HAZY; Range: CLEAR; Status: F Test: COLOR, URINE; Value: YELLOW; Range: YELLOW; Status: F Test: PH,URINE; Value: 6.0; Range: 5.0-9.0; Units: UNITS; Status: F Test: SPECIFIC GRAVITY URINE AUTO; Value: 1.015; Range: 1.002-1.035; Status: F Test: PROTEIN, URINE AUTO; Value: NEGATIVE; Range: NEGATIVE; Units: mg/dL; Status: F Test: GLUCOSE, URINE (UA) AUTO; Value: 2+; Range: NEGATIVE; Abnormal: Above high normal; Units: mg/dL; Status: F Test: KETONE, URINE AUTO; Value: 1+; Range: NEGATIVE; Abnormal: Above high normal; Units: mg/dL; Status: F Test: UROBILINOGEN, URINE AUTO; Value: 0.2; Range: 0.0-2.0; Units: mg/dL; Status: F Test: BILIRUBIN, URINE AUTO; Value: NEGATIVE; Range: NEGATIVE; Status: F Test: NITRITE, URINE AUTO; Value: NEGATIVE; Range: NEGATIVE; Status: F Test: LEUKOCYTE ESTERASE, URINE AUTO; Value: NEGATIVE; Range: NEGATIVE; Status: F Test: BLOOD, URINE BLOOD; Value: NEGATIVE; Range: NEGATIVE; Status: F Test: WBC, URINE AUTO; Value: 4; Range: 0-3; Abnormal: Above high normal; Units: /HPF; Status: F Test: RBC, URINE AUTO; Value: 2; Range: 0-3; Units: /HPF; Status: F Test: BACTERIA, URINE AUTO; Value: NEGATIVE; Range: NEGATIVE; Status: F Test: SQUAMOUS EPITHELIAL CELL UR AU; Value: 4; Range: 0-6; Units: /HPF; Status: F Test: MUCUS, URINE; Value: SMALL; Range: NEGATIVE; Status: F Test: HYALINE CAST, URINE AUTO; Value: 1; Range: 0-1; Units: /LPF; Status: F Lab Order: ERYTHROCYTE SEDIMENTATION RATE; SPEC' 12/11/16 11:50 Test: ERYTHROCYTE SEDIMENTATION RATE; Value: 25; Range: 0-30; Units: mm/hr; Status: F Lab Order: C REACTIVE PROTEIN QUANTITATIV; SPEC' 02/27/17 11:50 Test: C REACTIVE PROTEIN QUANTITATIV; Value: 0.87; Range: 0.00-0.30; Abnormal: Above high normal; Units: MG/DL; Status: F Outcome: 14:38 Discharge ordered by Provider. cc10 14:46 Discharge Assessment: Patient awake, alert and oriented x 3. No cognitive and/or dls functional deficits noted. Patient verbalized understanding of disposition instructions. patient administered narcotics - no. The following High Risk Discharge criteria are identified: None. Discharged to home ambulatory, with friend. Condition: stable Condition: improved. Discharge instructions given to patient, Instructed on discharge instructions, follow up and referral plans. Demonstrated understanding of instructions, Pt was receptive of discharge instructions/ teaching. No special radiology studies were completed. Property sent home with patient. 14:48 Patient left the ED. dls Signatures: Keiko Marquez, RN RN Clifford Pond,RN RN Flower Cuevas RN RN dls Aury Ponce, LIQUEFIER LIQUEFIER jam1 Matilda Key, Reg Reg Mi JaramilloRN RN Min Monreal, PA-Amol PA-C cc10 Katherine Byers2 Corrections: (The following items were deleted from the chart) 12:03 12:02 ERYTHROCYTE SEDIMENTATION RATE+LAB sent. dee EDMS 12:03 12:02 C REACTIVE PROTEIN QUANTITATIV+LAB sent. dee EDMS Chart Complete DUANE
--- NOTE | 2016-12-13 15:50 | EDDOCDS ---
Physician Documentation [facility] Name: Christiane King Age: 51 yrs Sex: Female : 1965 Arrival Date: 12/11/2016 Time: 11:04 Bed I2 / M2 Private MD: DAY COLON Disposition: 12/11/16 14:38 Discharged to Home/Self Care. Impression: Low back pain - Chronic progession. - Condition is Stable. - Discharge Instructions: Chronic Back Pain. - Medication Reconciliation form. - Follow up: DAY COLON; When: Call to arrange an appointment; Reason: Wound/Symptom Recheck, Recheck today's complaints, Worsening of conditions, Continuance of care. - Problem is chronic. - Symptoms have improved. - Notes: Follow up with pain management as discussed. Historical: - Allergies: anything that contains alcoholdifficulty breathing; metformin; - Home Meds: 1. glyburide 5 mg Oral tab 2 tabs 2 times per day (Last dose: 12/10/2016) 2. Zithromax Z-Dipesh 250 mg Oral tab 1 tab once daily - PMHx: lung nudules; Diabetes - NIDDM: controlled; - PSHx: neck surgery; ankle surgery; Cholecystectomy; Hysterectomy; Oophorectomy- bilateral (May 20, 2013); Cesearean Section; - Social history: Smoking status: Patient uses tobacco products, current every day smoker. No barriers to communication noted, The patient speaks fluent British, Speaks appropriately for age. - Family history: Not pertinent. - : The pt / caregiver states he / she is not on anticoagulants. Home medication list is obtained from the patient. - Exposure Risk Screening:: None identified. 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 4 in. (162.56 cm) (R); Pain 10/10; 14:46 BP 108 / 58; Pulse 76; Resp 20; Temp 97.8(O); Pain 0/10; dls 11:05 Body Mass Index 36.73 (97.07 kg, 162.56 cm) lr2 MDM: 11:34 Financial registration complete. lg 11:38 [facility] Payment Agreement was scanned into [employer] and attached to record. lg 11:40 IV Saline Lock ordered. cc10 11:40 Undress patient appropriately for examination ordered. cc10 11:40 NS 0.9% 1000 ml IV at 250 mL/hr continuous ordered. cc10 11:40 CBC with Diff Ordered. EDMS 11:40 BMP Ordered. EDMS 11:40 A1C Ordered. EDMS 11:40 UA Ordered. EDMS 11:41 ketorolac 30 mg IVP once ordered. cc10 12:03 ERYTHROCYTE SEDIMENTATION RATE Ordered. EDMS 12:03 C REACTIVE PROTEIN QUANTITATIV Ordered. EDMS 13:29 CBC with Diff Reviewed. cc10 13:29 BMP Reviewed. cc10 13:29 A1C Reviewed. cc10 13:29 C REACTIVE PROTEIN QUANTITATIV Reviewed. cc10 13:29 ERYTHROCYTE SEDIMENTATION RATE Reviewed. cc10 Administered Medications: 11:55 Drug: NS 0.9% 1000 ml [sodium chloride 0.9 % intravenous solution] Route: IV; Rate: 250 dls mL/hr; Site: left antecubital; 11:55 Drug: ketorolac 30 mg [ketorolac 30 mg/mL (1 mL) injection solution (1 mL)] Route: IVP; dls Site: left antecubital; Signatures: Dispatcher [facility] EDClifford Easton RN RN jmk Scott, Debra, RN RN dls Ganter, LoriLee, Reg Reg lg Dunaway, Emily, RN RN ead Coniski, Colin, PA-C PAEdwin cc10 The chart was reviewed and I authenticate all verbal orders and agree with the evaluation and treatment provided.Corrections: (The following items were deleted from the chart) 12:03 11:41 C REACTIVE PROTEIN QUANTITATIV+LAB ordered. EDMS EDMS 12:03 11:41 ERYTHROCYTE SEDIMENTATION RATE+LAB ordered. EDMS EDMS 14:16 14:07 Bladder Scan please ordered. cc10 cc10 Attachments: 11:38 [facility] Payment Agreement lg Chart Complete MTDD
--- NOTE | 2016-12-13 15:50 | EDDOCDS ---
Physician Documentation [facility] Name: Christiane King Age: 51 yrs Sex: Female : 1965 Arrival Date: 12/11/2016 Time: 11:04 Bed I2 / M2 Private MD: DAY COLON Disposition: 12/11/16 14:38 Discharged to Home/Self Care. Impression: Low back pain - Chronic progession. - Condition is Stable. - Discharge Instructions: Chronic Back Pain. - Medication Reconciliation form. - Follow up: DAY COLON; When: Call to arrange an appointment; Reason: Wound/Symptom Recheck, Recheck today's complaints, Worsening of conditions, Continuance of care. - Problem is chronic. - Symptoms have improved. - Notes: Follow up with pain management as discussed. Historical: - Allergies: anything that contains alcoholdifficulty breathing; metformin; - Home Meds: 1. glyburide 5 mg Oral tab 2 tabs 2 times per day (Last dose: 12/10/2016) 2. Zithromax Z-Dipesh 250 mg Oral tab 1 tab once daily - PMHx: lung nudules; Diabetes - NIDDM: controlled; - PSHx: neck surgery; ankle surgery; Cholecystectomy; Hysterectomy; Oophorectomy- bilateral (May 20, 2013); Cesearean Section; - Social history: Smoking status: Patient uses tobacco products, current every day smoker. No barriers to communication noted, The patient speaks fluent Iraqi, Speaks appropriately for age. - Family history: Not pertinent. - : The pt / caregiver states he / she is not on anticoagulants. Home medication list is obtained from the patient. - Exposure Risk Screening:: None identified. 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 4 in. (162.56 cm) (R); Pain 10/10; 14:46 BP 108 / 58; Pulse 76; Resp 20; Temp 97.8(O); Pain 0/10; dls 11:05 Body Mass Index 36.73 (97.07 kg, 162.56 cm) lr2 MDM: 11:34 Financial registration complete. lg 11:38 [facility] Payment Agreement was scanned into [employer] and attached to record. lg 11:40 IV Saline Lock ordered. cc10 11:40 Undress patient appropriately for examination ordered. cc10 11:40 NS 0.9% 1000 ml IV at 250 mL/hr continuous ordered. cc10 11:40 CBC with Diff Ordered. EDMS 11:40 BMP Ordered. EDMS 11:40 A1C Ordered. EDMS 11:40 UA Ordered. EDMS 11:41 ketorolac 30 mg IVP once ordered. cc10 12:03 ERYTHROCYTE SEDIMENTATION RATE Ordered. EDMS 12:03 C REACTIVE PROTEIN QUANTITATIV Ordered. EDMS 13:29 CBC with Diff Reviewed. cc10 13:29 BMP Reviewed. cc10 13:29 A1C Reviewed. cc10 13:29 C REACTIVE PROTEIN QUANTITATIV Reviewed. cc10 13:29 ERYTHROCYTE SEDIMENTATION RATE Reviewed. cc10 Administered Medications: 11:55 Drug: NS 0.9% 1000 ml [sodium chloride 0.9 % intravenous solution] Route: IV; Rate: 250 dls mL/hr; Site: left antecubital; 11:55 Drug: ketorolac 30 mg [ketorolac 30 mg/mL (1 mL) injection solution (1 mL)] Route: IVP; dls Site: left antecubital; Signatures: Dispatcher [facility] EDClifford Easton RN RN jmk Scott, Debra, RN RN dls Ganter, LoriLee, Reg Reg lg Dunaway, Emily, RN RN ead Coniski, Colin, PA-C PAEdwin cc10 The chart was reviewed and I authenticate all verbal orders and agree with the evaluation and treatment provided.Corrections: (The following items were deleted from the chart) 12:03 11:41 C REACTIVE PROTEIN QUANTITATIV+LAB ordered. EDMS EDMS 12:03 11:41 ERYTHROCYTE SEDIMENTATION RATE+LAB ordered. EDMS EDMS 14:16 14:07 Bladder Scan please ordered. cc10 cc10 Attachments: 11:38 [facility] Payment Agreement lg Chart Complete MTDD
== END 2016-12-11 14:48 | disposition home or self-care (01) ==
LOC: M ED 11:04
DX: M54.5 Low back pain (principal); G89.29 Other chronic pain; E11.9 Type 2 diabetes mellitus without complications; R91.8 Other nonspecific abnormal finding of lung field; F17.210 Nicotine dependence, cigarettes, uncomplicated; Z79.899 Other long term (current) drug therapy; Z88.8 Allergy status to other drugs, medicaments and biological substances
CPT/HCPCS: 80048; 81001; 83036; 85025; 85652; 86140; 96374; 99284; J1885

== ENCOUNTER → 2017-01-02 | Outpatient (CLI) | payer BC ==
--- NOTE | 2017-01-06 00:13 | ECWPNPC ---
PATIENT NAME: ZULAY GARRETT : 1965 GENDER: FEMALE VISIT DATE: 01/02/2017 DISCHARGE DATE: 01/02/17 1227 VISIT LOCKED DATE TIME: PHYSICIAN: GLORIA HOYT RESOURCE: GLORIA HOYT REASON FOR APPOINTMENT 1. BACK/LEGS/HIPS HISTORY OF PRESENT ILLNESS HISTORY OF PRESENT ILLNESS: PAIN THE PATIENT DESCRIBES THE PAIN... FALL RISK SCREENING: SCREENING :NO FALLS IN THE PAST YEAR TODAY'S VISIT: NOTES: RATES PAIN LEVEL TODAY 5/10. DESCRIBES PAIN TENDER. NOTES PAIN IS CENTER LOW BACK WITH RADIATION TO THE HIPS AND LEGS.. CURRENT MEDICATIONS TAKING LANCETS FOR ONE TOUCH ULTRA 2 DEVICE MISCELLANEOUS DIRECTED SC DX : 250.02/ THREE TIMES DAILY, NOTES: USE NEEDED TAKING ACCU-CHEK JUAN JOSE TEST STRIP 1 SUBCUTANEOUSLY TWICE A DAY DX 250.00, NOTES: USE NEEDED TAKING BD INSULIN SYRINGE U-100 1 ML SYRINGE 1 EACH SUBCUTANEOUSLY DAILY DX 250.00, NOTES: USE NEEDED TAKING PEN NEEDLES 31G X 6 MM MISCELLANEOUS 1 NEEDLE SQ BEFORE BED, NOTES: USE NEEDED TAKING GLYBURIDE 5 MG TABLET 2 TABLET ORALLY TWICE A DAY TAKING MELOXICAM 7.5 MG TABLET 1 TABLET ORALLY BID WITH FOOD, NOTES: DIDN'T GET IT NOT-TAKING NOVOFINE 32G X 6 MM MISCELLANEOUS DIRECTED SQ DAILY, NOTES: USE NEEDED NOT-TAKING VALIUM 5 MG TABLET 2 TABLET NEEDED ORALLY TAKE 1 TAB ONE HOUR PRIOR TO TEST, AND ONE TAB ON ARRIVAL FOR TEST MDD=2 NOT-TAKING NORCO 10-325 MG TABLET 1 TABLET ORALLY DAILY PRN PAIN MDD=1, NOTES: NONE IN LAST MONTH NOT-TAKING DRISDOL 50,000 UNITS TABLET 1 TABLET ORAL WEEKLY, NOTES: FEW WEEKS AGO NOT-TAKING MAGNESIUM 200 MG TABLET 2 TABLETS WITH A MEAL ORALLY ONCE A DAY, NOTES: NONE RECENTLY NOT-TAKING METFORMIN HCL 500 MG TABLET 2 TABLET WITH MEALS ORALLY TWICE A DAY, NOTES: 04/17/16@1600 NOT-TAKING DULCOLAX 5 MG TABLET DELAYED RELEASE 1 TABLET NEEDED ORALLY ONCE A DAY, NOTES: NONE RECENTLY NOT-TAKING COLACE 100 MG CAPSULE 1 TABLET ORALLY ONCE A DAY, NOTES: NONE RECENTLY NOT-TAKING VALIUM 10 MG TABLET 1 TABLET NEEDED ORALLY PREPROCEEDURE, NOTES: 7/5/16@0915 NOT-TAKING OXYCODONE HCL 10 MG TABLET 1 TABLET NEEDED ORALLY PREPROCEEDURE, NOTES: 04/18/16@0915 NOT-TAKING PERCOCET 5-325 MG TABLET 1 TABLET NEEDED ORALLY EVERY 6 HRS, NOTES: PRE SEDATE MEDICATION LIST REVIEWED AND RECONCILED WITH THE PATIENT PAST MEDICAL HISTORY OBESITY, MORBID, D/T EXCESS CALORIES HEPATOMEGALY 07/[address], 08/27 LIVER US WITH DIFFUSE FATTY INFILTRATION, NONALCOHOLIC MILD GASTROPARESIS NM 07/27 MRI LSPINE 01/25 - SM L PARACENTRAL DISC PROTRUSION AT L1-2 WITH MINIMAL THECAL SAC COMPRESSION, DIFFUSE DISC BULGE AT L4-5 WITH MINIMAL THECAL SAC COMPRESSION - DR JOHNSON H/O MRSA 07/24 EKG 06/23 - NL DM2 WITH H/O GESTATION DIABETES WITH GASTROPARESIS, MCC INSULIN USE NONCOMPLIANCE DEPRESSION 04/28 CT CHEST WITH PULM NODULES, FOLLOWS WITH PULM 03/28 COLONOSCOPY, REINDL, REPEAT IN 2 YEARS SUBOPTIMAL PREP CLEMENCIA DEP CHRONIC PAIN, L SPINE, L ANKLE, L HIP VIT D DEF CHRONIC CONSTIPATION ALLERGIES AMITIZA: ANAPHYLAXIS: ALLERGY ETHYL ALCOHOL: RASH: ALLERGY METFORMIN HCL: DYSPNEA: ALLERGY SOCIAL HISTORY GENERAL: TOBACCO USE ARE YOU A:NONSMOKER LEARNING BARRIERS / SPECIAL NEEDS ORIENTED TO PLAN OF CARE: PATIENT, PAIN MANAGEMENT PATIENT, ORIENTED TO PLAN OF CARE: PATIENT, PAIN MANAGEMENT PATIENT. NEW PATIENT PAIN DIARY TODAY'S VISITNOTES FROM 0-10, WHAT LEVEL IS YOUR PAIN TODAY?0 PAIN CLINIC PFS, CLERGY, PUBLIC HEALTH REFERRALS PFS REFERRAL NEEDED?NO CLERGY REFERRAL NEEDED?NO PUBLIC HEALTH REFERRAL NEEDED?NO WAS THE PROVIDER NOTIFIED OF ANY PERTINENT INFO?NO PFS REFERRAL NEEDED?NO CLERGY REFERRAL NEEDED?NO PUBLIC HEALTH REFERRAL NEEDED?NO WAS THE PROVIDER NOTIFIED OF ANY PERTINENT INFO?NO REVIEW OF SYSTEMS CONSTITUTIONAL: ANY CHANGE IN YOUR MEDICAL CONDITION? NO . CHILLS NO . FEVER NO . INFECTION: DO YOU HAVE NEW INFECTIONS? NO . DO YOU HAVE HISTORY OF MRSA? NO . MUSCULOSKELETAL: ANY NEW PATTERNS OF PAIN OR NUMBNESS? NO . GASTROENTEROLOGY: ANY NEW CHANGE IN BOWEL CONTROL? NO . GENITOURINARY: ANY NEW CHANGE IN BLADDER CONTROL? NO . IS THERE A CHANCE YOU COULD BE ? NO . HEMATOLOGY/LYMPH: DO YOU TAKE ANY BLOOD THINNERS? (FOR EXAMPLE- COUMADIN, PLAVIX, AGGRENOX, PLATEL, PRADAXA, OR XARELTO) NO . WHEN WAS YOUR LAST DOSE? DATE: TIME: . NEUROLOGY: HAVE YOU FALLEN IN THE PAST 6 MONTHS? NO . ANY NEW EXTREMITY NUMBNESS OR WEAKNESS? NO . CARDIOLOGY: DO YOU HAVE A PACEMAKER OR DEFIBRILLATOR? NO . RESPIRATORY: HAVE YOU BEEN SICK IN THE PAST WEEK? YES . FEVER NO . FLU LIKE SYMPTOMS? NO . COUGH YES . INTEGUMENTARY: DO YOU HAVE ANY RASHES OR OPEN SORES? NO . ALLERGIC/IMMUNO: ARE YOU ALLERGIC TO SHELLFISH OR IV DYE? NO . ANY NEW ALLERGIES? NO . PSYCHIATRIC: DO YOU HAVE THOUGHTS OF HURTING YOURSELF OR SOMEONE ELSE? NO . ARE YOU ABUSED, NEGLECTED, OR IN AN UNSAFE ENVIRONMENT? NO . ENDOCRINOLOGY: ARE YOU DIABETIC? YES - UNABLE TO AFFORD INSULIN PRESCRIBED. REPORTS BLOOD SUGARS IN THE 200'S&NBSP;. OTHER: DO YOU NEED ANY PRESCRIPTIONS? NO . IF YES, PLEASE LIST: ____ . ANY NEW PROBLEMS WITH YOUR MEDICATIONS? NO . WHEN DID YOU LAST EAT? ____ . WHEN DID YOU LAST DRINK? ____ . WHAT DID YOU LAST DRINK? ____ . NAME OF PERSON DRIVING YOU HOME? ____ . DO YOU HAVE ANY OTHER QUESTIONS OR CONCERNS NO . REVIEWED BY: PROVIDER: . VITAL SIGNS WT 213.6 LBS, HT 64.5 IN, BMI 36.09 INDEX, BP 140/88 MM HG, HR 89 /MIN, RR 18 /MIN, TEMP 98.0 F, OXYGEN SAT % 98, NA INITIALS HS, REVIEWED BY: CS. EXAMINATION GENERAL EXAMINATION: PSYCHALERT , ORIENTED X 3 , APPROPRIATE MOOD AND AFFECT . LUNGS:CLEAR TO AUSCULTATION BILATERALLY. HEART:HEART RATE REGULAR. MUSCULOSKELETAL:TENDERNESS OVER BILATERAL TROCANTERS. POINT TENDERNESS OVER LEFT SIJ. . GAIT ANTALGIC. POSITIVE KAYLI SIGN LEFT. . ASSESSMENTS SPONDYLOSIS OF LUMBAR REGION WITHOUT MYELOPATHY OR RADICULOPATHY - M47.816 (PRIMARY) SPONDYLOSIS OF LUMBOSACRAL REGION WITHOUT MYELOPATHY OR RADICULOPATHY - M47.817 SACROILIITIS - M46.1 PAIN IN LEFT HIP - M25.552 PAIN IN RIGHT HIP - M25.551 TREATMENT SPONDYLOSIS OF LUMBAR REGION WITHOUT MYELOPATHY OR RADICULOPATHY START MELOXICAM TABLET, 15 MG, 1 TABLET, ORALLY, ONCE A DAY, 30 DAY(S), 30, REFILLS 1 INJECTION FACET JOINT/NERVE LUMBAR/SACRALGLORIA HOYT 01/02/2017 12:16:11 PM > BILATERAL DIAGNOSTIC LUMBAR FACET BLOCK L3-4, L4-5 NOTES: CHECK WITH [facility] ABOUT JOB RETRAININGMELOXICAM INFORMATION GIVEN. PROCEDURE CODES FA211 ESTABILISHED PATIENT [facility] CHARGE DISPOSITION & COMMUNICATION FOLLOW UP 2 WEEKS AFTER INJECTION (REASON: CHECK AUTH FOR DIAGNOSTIC L3-4, L4-5 LUMBAR FACET BLOCK) ELECTRONICALLY SIGNED BY MICKEY PARSONS ON 01/05/2017 AT 06:16 PM EDT DISCLAIMER : THIS IS A VISIT SUMMARY EXTRACTED FROM THE [employer] CHART. IT IS NOT A COPY OF THE [employer] PROGRESS NOTE. DUANE
== END ==
LOC: M PAIN 11:00
PROVIDERS: ATTEND Nurse Practitioner Family
DX: Z09 Encounter for follow-up examination after completed treatment for conditions other than malignant neoplasm (principal); G89.29 Other chronic pain; M47.816 Spondylosis without myelopathy or radiculopathy, lumbar region; M47.817 Spondylosis without myelopathy or radiculopathy, lumbosacral region; M46.1 Sacroiliitis, not elsewhere classified; M25.552 Pain in left hip; M25.551 Pain in right hip; E11.43 Type 2 diabetes mellitus with diabetic autonomic (poly)neuropathy; F32.9 Major depressive disorder, single episode, unspecified; F17.218 Nicotine dependence, cigarettes, with other nicotine-induced disorders; E55.9 Vitamin D deficiency, unspecified; E66.9 Obesity, unspecified; Z68.36 Body mass index [BMI] 36.0-36.9, adult; Z91.19 Patient's noncompliance with other medical treatment and regimen; Z88.8 Allergy status to other drugs, medicaments and biological substances; L23.89 Allergic contact dermatitis due to other agents; Z79.84 Long term (current) use of oral hypoglycemic drugs; Z79.899 Other long term (current) drug therapy

== ENCOUNTER → 2017-01-09 | Outpatient (REF) | payer BC ==
[2017-01-09 14:26] LABS: BASO % 0.5 % (0.0-1.0); EOS # 0.1 K/mm3 (0.0-0.50); EOS % 0.9 % (0.0-3.0); LARGE UNSTAINED CELL # 0.1 K/mm3 (0.0-0.4); LARGE UNSTAINED CELL % 1.4 % (0.0-4.0); LYMPH % 27.8 % (24.0-44.0); MEAN CORPUSCULAR HEMOGLOBIN 30.2 pg (27.0-33.0); MEAN CORPUSCULAR HGB CONC 33.1 g/dl (32.0-36.5); MEAN CORPUSCULAR VOLUME 91.2 fl (80.0-96.0); MONO # 0.4 K/mm3 (0.0-0.8); NEUTROPHILS # 4.6 K/mm3 (1.8-7.7); NEUTROPHILS % 63.4 % (36.0-66.0); PLATELET COUNT, AUTOMATED 240 k/mm3 (150-450); RED CELL DISTRIBUTION WIDTH 11.7 % (11.5-14.5); WHITE BLOOD COUNT 7.3 K/mm3 (4.0-10.0)
[2017-01-09 15:04] LABS: ALBUMIN 3.9 GM/DL (3.2-5.2); ALBUMIN/GLOBULIN RATIO 1.22 (1.00-1.93); ALKALINE PHOSPHATASE 137 U/L (45-117); ALT/SGPT 26 U/L (12-78); ANION GAP 8 MEQ/L (8-16); AST/SGOT 10 U/L (15-37); BILIRUBIN,TOTAL 0.4 MG/DL (0.2-1.0); BLOOD UREA NITROGEN 10 MG/DL (7-18); CALCIUM LEVEL 9.2 MG/DL (8.5-10.1); CARBON DIOXIDE LEVEL 28 MEQ/L (21-32); CHLORIDE LEVEL 101 MEQ/L (98-107); CHOLESTEROL LEVEL 182 MG/DL (<200); CREATININE FOR GFR 0.64 MG/DL (0.55-1.02); GLOMERULAR FILTRATION RATE > 60.0 (>51); GLUCOSE, FASTING 365 MG/DL (70-105); POTASSIUM SERUM 4.3 MEQ/L (3.5-5.1); SODIUM LEVEL 137 MEQ/L (136-145); TOTAL PROTEIN 7.1 GM/DL (6.4-8.2); TRIGLYCERIDES LEVEL 191 MG/DL (<150)
== END ==
LOC: M SFHCADAM 07:48
PROVIDERS: ATTEND Physician Assistant Medical
DX: K76.0 Fatty (change of) liver, not elsewhere classified (principal); E11.43 Type 2 diabetes mellitus with diabetic autonomic (poly)neuropathy; E66.01 Morbid (severe) obesity due to excess calories; E55.9 Vitamin D deficiency, unspecified

== ENCOUNTER → 2017-09-13 | Outpatient (REF) | payer BC ==
[~2017-09-13] MED LIST changes: +VOLT1GEL15 TD; -VOLT1GEL24 TD
[2017-09-13 13:57] LABS: ALBUMIN 3.7 GM/DL (3.2-5.2); ALBUMIN/GLOBULIN RATIO 0.97 (1.00-1.93); ALKALINE PHOSPHATASE 148 U/L (45-117); ALT/SGPT 30 U/L (12-78); ANION GAP 9 MEQ/L (8-16); AST/SGOT 9 U/L (7-37); BILIRUBIN,TOTAL 0.5 MG/DL (0.2-1.0); BLOOD UREA NITROGEN 14 MG/DL (7-18); CALCIUM LEVEL 9.1 MG/DL (8.5-10.1); CARBON DIOXIDE LEVEL 28 MEQ/L (21-32); CHLORIDE LEVEL 98 MEQ/L (98-107); CREATININE FOR GFR 0.65 MG/DL (0.55-1.02); GLOMERULAR FILTRATION RATE > 60.0 (>51); GLUCOSE, FASTING 270 MG/DL (70-105); POTASSIUM SERUM 4.5 MEQ/L (3.5-5.1); SODIUM LEVEL 135 MEQ/L (136-145); TOTAL PROTEIN 7.5 GM/DL (6.4-8.2)
== END ==
LOC: M SFHCADAM 07:56
PROVIDERS: ATTEND Physician Assistant Medical
DX: E11.43 Type 2 diabetes mellitus with diabetic autonomic (poly)neuropathy (principal); E55.9 Vitamin D deficiency, unspecified

== ENCOUNTER 2017-11-08 06:55 | Day surgery (SDC) | payer BC ==
[2017-11-08] MEDS: NS 1,000 ML IV (07:25)
[2017-11-08] MEDS ORDERED: PROPOFOL 200 MG/20 ML VIAL As Ordered ×2 (08:05→08:09)
[2017-11-08] MEDS ORDERED: LIDOCAINE 2% INJ 100 MG/5 ML SDV (FOR ANES.) As Ordered (08:05)
== END 2017-11-08 08:43 | disposition home or self-care (01) ==
LOC: M OPP 06:55
DX: K59.00 Constipation, unspecified (principal); R10.9 Unspecified abdominal pain; Z86.010 Personal history of colon polyps; Z80.0 Family history of malignant neoplasm of digestive organs; K64.8 Other hemorrhoids; E10.9 Type 1 diabetes mellitus without complications; R06.02 Shortness of breath; R07.89 Other chest pain; J45.909 Unspecified asthma, uncomplicated; R91.1 Solitary pulmonary nodule; F17.210 Nicotine dependence, cigarettes, uncomplicated; Z91.018 Allergy to other foods; Z79.82 Long term (current) use of aspirin; Z79.899 Other long term (current) drug therapy; Z80.3 Family history of malignant neoplasm of breast; Z80.49 Family history of malignant neoplasm of other genital organs; Z80.41 Family history of malignant neoplasm of ovary
CPT/HCPCS: 45378

== ENCOUNTER → 2018-04-22 | Outpatient (REF) | payer BC ==
[2018-04-22 20:16] LABS: ALBUMIN 3.6 GM/DL (3.2-5.2); ALBUMIN/GLOBULIN RATIO 1.06 (1.00-1.93); ALKALINE PHOSPHATASE 129 U/L (45-117); ALT/SGPT 28 U/L (12-78); ANION GAP 7 MEQ/L (8-16); AST/SGOT 14 U/L (7-37); BILIRUBIN,TOTAL 0.4 MG/DL (0.2-1.0); BLOOD UREA NITROGEN 15 MG/DL (7-18); CARBON DIOXIDE LEVEL 29 MEQ/L (21-32); CHLORIDE LEVEL 104 MEQ/L (98-107); CREATININE FOR GFR 0.71 MG/DL (0.55-1.30); GLOMERULAR FILTRATION RATE > 60.0 (>51); GLUCOSE, FASTING 237 MG/DL (70-100); POTASSIUM SERUM 4.5 MEQ/L (3.5-5.1); SODIUM LEVEL 140 MEQ/L (136-145)
[2018-04-22 20:22] LABS: ESTIMATED AVERAGE GLUCOSE 197 MG/DL (60-110); HEMOGLOBIN A1c 8.5 %
== END ==
LOC: M SFHCADAM 12:02
DX: E11.43 Type 2 diabetes mellitus with diabetic autonomic (poly)neuropathy (principal); E55.9 Vitamin D deficiency, unspecified

== ENCOUNTER → 2018-06-04 | Outpatient (CLI) | payer BC | LOC: M PAIN 11:00 | DX: G89.29 Other chronic pain (principal); M25.571 Pain in right ankle and joints of right foot; M47.816 Spondylosis without myelopathy or radiculopathy, lumbar region; M25.551 Pain in right hip; M25.511 Pain in right shoulder; E66.01 Morbid (severe) obesity due to excess calories; Z68.38 Body mass index [BMI] 38.0-38.9, adult; K76.0 Fatty (change of) liver, not elsewhere classified; F17.210 Nicotine dependence, cigarettes, uncomplicated; F32.9 Major depressive disorder, single episode, unspecified; E55.9 Vitamin D deficiency, unspecified; K59.09 Other constipation; Z86.14 Personal history of Methicillin resistant Staphylococcus aureus infection; Z79.4 Long term (current) use of insulin; Z79.82 Long term (current) use of aspirin; Z79.899 Other long term (current) drug therapy; Z88.8 Allergy status to other drugs, medicaments and biological substances | CPT/HCPCS: G0463 ==

== ENCOUNTER → 2018-07-12 | Outpatient (CLI) | payer BC | LOC: M PAIN 10:00 | DX: M25.571 Pain in right ankle and joints of right foot (principal); G89.29 Other chronic pain; M47.816 Spondylosis without myelopathy or radiculopathy, lumbar region; M25.551 Pain in right hip; K76.0 Fatty (change of) liver, not elsewhere classified; E11.43 Type 2 diabetes mellitus with diabetic autonomic (poly)neuropathy; F32.9 Major depressive disorder, single episode, unspecified; F17.210 Nicotine dependence, cigarettes, uncomplicated; E66.01 Morbid (severe) obesity due to excess calories; Z68.38 Body mass index [BMI] 38.0-38.9, adult; Z79.82 Long term (current) use of aspirin; Z79.4 Long term (current) use of insulin; Z79.899 Other long term (current) drug therapy; Z88.8 Allergy status to other drugs, medicaments and biological substances; Z86.32 Personal history of gestational diabetes | CPT/HCPCS: G0463 ==

== ENCOUNTER → 2018-07-20 | Outpatient (CLI) | payer BC | LOC: M RAD 13:09 | DX: G95.0 Syringomyelia and syringobulbia (principal); M51.24 Other intervertebral disc displacement, thoracic region; M25.571 Pain in right ankle and joints of right foot | CPT/HCPCS: 72146 ==

== ENCOUNTER → 2018-07-26 | Outpatient (CLI) | payer BC | LOC: M PAIN 12:45 | DX: M43.06 Spondylolysis, lumbar region (principal); G89.29 Other chronic pain; K76.0 Fatty (change of) liver, not elsewhere classified; E11.43 Type 2 diabetes mellitus with diabetic autonomic (poly)neuropathy; K31.84 Gastroparesis; F32.9 Major depressive disorder, single episode, unspecified; Z79.82 Long term (current) use of aspirin; Z79.4 Long term (current) use of insulin; Z79.899 Other long term (current) drug therapy; Z88.8 Allergy status to other drugs, medicaments and biological substances; Z86.32 Personal history of gestational diabetes | CPT/HCPCS: G0463 ==

== ENCOUNTER → 2018-08-20 | Outpatient (CLI) | payer BC ==
[~2018-08-20] MED LIST changes: +BUPIVACAINE HCL 0.25% 30 ML VIAL As Ordered; -DULC5TAB PO; -GABA-283 PO; -GLYB5TAB5 PO; -INSULANT SC; +ISOVUE-M 300 61% 15ML VIAL (Q9967) As Ordered; +LIDOCAINE 1% SDV INJ 30 ML VIAL As Ordered; -MAGN1TAB25 PO; -NORCOBULK PO; +TRIAMCINOLONE ACETONIDE SUSP 40 MG/ML VIAL (J3301) As Ordered; -VICT18IN SC; -VOLT1GEL15 TD; +diazePAM 5 MG TAB As Ordered; -flexeril PO; +oxyCODONE 5MG TAB As Ordered
== END ==
LOC: M PAIN 11:30
DX: G89.29 Other chronic pain (principal); M47.816 Spondylosis without myelopathy or radiculopathy, lumbar region; M47.817 Spondylosis without myelopathy or radiculopathy, lumbosacral region; E11.43 Type 2 diabetes mellitus with diabetic autonomic (poly)neuropathy; K31.84 Gastroparesis; K76.0 Fatty (change of) liver, not elsewhere classified; F32.9 Major depressive disorder, single episode, unspecified; Z72.0 Tobacco use; Z79.82 Long term (current) use of aspirin; Z79.4 Long term (current) use of insulin; Z79.899 Other long term (current) drug therapy; Z88.8 Allergy status to other drugs, medicaments and biological substances; Z91.09 Other allergy status, other than to drugs and biological substances
CPT/HCPCS: J3301

== ENCOUNTER → 2018-09-13 | Outpatient (CLI) | payer BC | LOC: M PAIN 13:00 | DX: M51.16 Intervertebral disc disorders with radiculopathy, lumbar region (principal); G89.29 Other chronic pain; M25.552 Pain in left hip; M25.551 Pain in right hip; E11.43 Type 2 diabetes mellitus with diabetic autonomic (poly)neuropathy; K76.0 Fatty (change of) liver, not elsewhere classified; F32.9 Major depressive disorder, single episode, unspecified; F17.210 Nicotine dependence, cigarettes, uncomplicated; E66.01 Morbid (severe) obesity due to excess calories; Z68.38 Body mass index [BMI] 38.0-38.9, adult; Z79.82 Long term (current) use of aspirin; Z79.4 Long term (current) use of insulin; Z79.899 Other long term (current) drug therapy; Z88.8 Allergy status to other drugs, medicaments and biological substances; Z91.09 Other allergy status, other than to drugs and biological substances | CPT/HCPCS: G0463 ==

== ENCOUNTER → 2018-10-06 | Outpatient (REF) | payer BC ==
[~2018-10-06] MED LIST changes: +ASPI1TAB PO; -BUPIVACAINE HCL 0.25% 30 ML VIAL As Ordered; +DULC5TAB PO; +GABA-845 PO; +GLYB5TAB5 PO; +INSULANT SC; -ISOVUE-M 300 61% 15ML VIAL (Q9967) As Ordered; -LIDOCAINE 1% SDV INJ 30 ML VIAL As Ordered; +MAGN1TAB25 PO; +NORCOBULK PO; -TRIAMCINOLONE ACETONIDE SUSP 40 MG/ML VIAL (J3301) As Ordered; +VICT18IN SC; +VITA100067 PO; +VOLT1GEL15 TD; -diazePAM 5 MG TAB As Ordered; +flexeril PO; -oxyCODONE 5MG TAB As Ordered
[2018-10-06 17:34] LABS: BASO % 0.3 % (0.0-1.0); EOS # 0.1 10^3/uL (0.0-0.50); EOS % 0.9 % (0.0-3.0); HEMATOCRIT 47.9 % (36.0-47.0); HEMOGLOBIN 15.6 g/dl (12.0-15.5); LYMPH # 2.4 10^3/uL (1.5-4.5); LYMPH % 25.9 % (24.0-44.0); MEAN CORPUSCULAR HEMOGLOBIN 30.8 pg (27.0-33.0); MEAN CORPUSCULAR HGB CONC 32.6 g/dl (32.0-36.5); MEAN CORPUSCULAR VOLUME 94.5 fl (80.0-96.0); MONO # 0.6 10^3/uL (0.0-0.8); MONO % 6.3 % (0.0-5.0); NEUTROPHILS % 65.9 % (36.0-66.0); PLATELET COUNT, AUTOMATED 271 10^3/uL (150-450); RED BLOOD COUNT 5.07 10^6/uL (4.00-5.40); WHITE BLOOD COUNT 9.1 10^3/uL (4.0-10.0)
[2018-10-06 17:44] LABS: ALBUMIN 3.7 GM/DL (3.2-5.2); ALT/SGPT 30 U/L (12-78); BILIRUBIN,TOTAL 0.5 MG/DL (0.2-1.0); BLOOD UREA NITROGEN 13 MG/DL (7-18); CARBON DIOXIDE LEVEL 30 MEQ/L (21-32); CHLORIDE LEVEL 106 MEQ/L (98-107); CHOLESTEROL LEVEL 158 MG/DL (<200); CHOLESTEROL RISK RATIO 3.038 (<5); CREATININE FOR GFR 0.69 MG/DL (0.55-1.30); GLOMERULAR FILTRATION RATE > 60.0 (>51); GLUCOSE, FASTING 122 MG/DL (70-100); HDL CHOLESTEROL 52 MG/DL (>40); LDL CHOLESTEROL 84 MG/DL (<100); NON-HDL-C 106 MG/DL; POTASSIUM SERUM 4.4 MEQ/L (3.5-5.1); SODIUM LEVEL 145 MEQ/L (136-145); TRIGLYCERIDES LEVEL 111 MG/DL (<150)
[2018-10-06 17:59] LABS: HEMOGLOBIN A1c 8.6 %
== END ==
LOC: M SFHCADAM 08:57
PROVIDERS: ATTEND Physician Assistant Medical
DX: E11.43 Type 2 diabetes mellitus with diabetic autonomic (poly)neuropathy (principal); K76.0 Fatty (change of) liver, not elsewhere classified; E55.9 Vitamin D deficiency, unspecified

== ENCOUNTER → 2018-11-07 | Outpatient (CLI) | payer BC ==
--- NOTE | 2018-11-25 00:13 | ECWPNPC ---
PATIENT NAME: ZULAY GARRETT : 1965 GENDER: FEMALE VISIT DATE: 11/07/2018 DISCHARGE DATE: 11/07/18 1437 VISIT LOCKED DATE TIME: PHYSICIAN: RAMSES LANDIN MD RESOURCE: RAMSES LANDIN MD REASON FOR APPOINTMENT 1. LOW BACK AND HIP HISTORY OF PRESENT ILLNESS HISTORY OF PRESENT ILLNESS: PAIN THE PATIENT DESCRIBES THE PAIN... 53 YEAR OLD FEMALE PATIENT WITH A HISTORY OF CHRONIC LOW BACK AND HIP PAIN. THE PATIENT DESCRIBES THE PAIN ACHING, STABBING, AND CONTINUOUS WITH A PAIN SCORE OF 8-10/10 DEPENDING ON PHYSICAL ACTIVITY. THE PATIENT SAYS THE PAIN STARTS IN HER LOW BACK AND GOES INTO BOTH HIPS AND DOWN INTO HER LEGS, BUT THE PAIN IN HER HIPS HAS WORSENED OVER THE PAST FEW WEEKS. THE PATIENT SAYS THE PAIN IN HER LEFT HIP IS WORSE. THE PATIENT TRIED USING CYMBALTA TO AID IN PAIN RELIEF, BUT SAYS THAT IT GAVE HER SEVERE HEADACHES. PATIENT DENIES UNEXPLAINABLE WEIGHT LOSS, FEVER, CHILLS, NEW CHANGES ON HER URINARY OR BOWEL CONTROL. FALL RISK SCREENING: SCREENING :NO FALLS IN THE PAST YEAR CURRENT MEDICATIONS TAKING ACCU-CHEK JUAN JOSE TEST STRIP 1 SUBCUTANEOUSLY 2-3 TIMES DAILY E11.9 TAKING LANCETS FOR ONE TOUCH ULTRA 2 DEVICE MISCELLANEOUS DIRECTED SC DX : 250.02/ THREE TIMES DAILY TAKING ASPIRIN 81 MG TABLET CHEWABLE 1 TABLET ORALLY ONCE A DAY, NOTES: 08/19/18 TAKING SIMVASTATIN 20 MG TABLET 1 TABLET IN THE EVENING ORALLY ONCE A DAY, NOTES: 08/19/18 TAKING DRISDOL 95408 UNIT CAPSULE 1 CAPSULE ORALLY WEEKLY, NOTES: 08/16/18 TAKING DULCOLAX 5 MG TABLET DELAYED RELEASE 1 TABLET NEEDED ORALLY ONCE A DAY, NOTES: NONE LATELY TAKING GLUCOMETER DIRECTED E11.9 DAILY TAKING LANCET DEVICE - MISCELLANEOUS DIRECTED E 11.9 THREE TIMES DAILY TAKING ONE TOUCH ULTRA BLUE STRIPS DIRECTED SUBCUTANEOUSLY E11.9, THREE TIMES DAILY TAKING PEN NEEDLES 31G X 6 MM MISCELLANEOUS DIRECTED E11.9 BEFORE BEDTIME TAKING LANTUS SOLOSTAR 100 UNIT/ML SOLUTION PEN-INJECTOR 29 UNITS SUBCUTANEOUS BEFORE BEDTIME, NOTES: 08/16/18 TAKING GLYBURIDE 5MG TABLET 2 TABLET ORALLY TWICE A DAY NOT-TAKING CYMBALTA 20 MG CAPSULE DELAYED RELEASE PARTICLES 1 CAPSULE ORALLY FOR PAIN ONCE A DAY MDD1, NOTES: NOT TAKING DUE TO SEVERE HEADACHES MEDICATION LIST REVIEWED AND RECONCILED WITH THE PATIENT PAST MEDICAL HISTORY OBESITY, MORBID, D/T EXCESS CALORIES HEPATOMEGALY 07/[address], 08/27 LIVER US WITH DIFFUSE FATTY INFILTRATION, NONALCOHOLIC MILD GASTROPARESIS NM 07/27 MRI LSPINE 01/25 - SM L PARACENTRAL DISC PROTRUSION AT L1-2 WITH MINIMAL THECAL SAC COMPRESSION, DIFFUSE DISC BULGE AT L4-5 WITH MINIMAL THECAL SAC COMPRESSION - DR JOHNSON H/O MRSA 07/24 EKG 06/23 - NL DM2 WITH H/O GESTATION DIABETES WITH GASTROPARESIS, WAITER/WAITRESS CABIN CLASS INSULIN USE NONCOMPLIANCE, MOSTLY DUE TO INABILITY TO PAY DEPRESSION 04/28 CT CHEST WITH PULM NODULES, FOLLOWS WITH PULM 03/28 COLONOSCOPY, REINDL, REPEAT IN 2 YEARS SUBOPTIMAL PREP CLEMENCIA DEP CHRONIC PAIN, L SPINE, L ANKLE, L HIP VIT D DEF CHRONIC CONSTIPATION 12/01 CT CHEST - STABLE NODULES, NO FUTHER IMAGING REQUIRED ALLERGIES AMITIZA: ANAPHYLAXIS: ALLERGY ETHYL ALCOHOL: RASH: ALLERGY METFORMIN HCL: DYSPNEA: ALLERGY CYMBALTA: SEVERE HEADACHES: SIDE EFFECTS SURGICAL HISTORY HYSTERECTOMY PARTIAL AND FULL 1992 CHOLECYSTECTOMY LEFT ANKLE REPAIR CERVICAL SPINE REPAIR X4 FAMILY HISTORY MOTHER: 69 YRS, DIAGNOSED WITH OTHER DAUGHTER(S): 29 YRS, DGT PASSED 29 - DM1, HEART DISEASE, DIAGNOSED WITH DIABETES 5 BROTHER(S) , 10 SISTER(S) - HEALTHY. 1DAUGHTER(S) . MOTHER- KIDNEY STONE 3 DAYS LATERDAUGHTER- DIABETIC, LUPUS ( AT 29) DID NOT KNOW FATHER. SOCIAL HISTORY GENERAL: TOBACCO USE ARE YOU A:CURRENT SMOKER ARE YOU INTERESTED IN QUITTING?NOT READY TO QUIT COUNSELED THE PATIENT ON SMOKING EFFECTS, EDUCATION [id number]/24/2019 HOW MANY CIGARETTES A DAY DO YOU SMOKE?11-20 HOW OFTEN DO YOU SMOKE CIGARETTES?EVERY DAY PATIENT COUNSELED ON THE DANGERS OF TOBACCO USE AND URGED TO QUIT:11/07/2018 ALCOHOL SCREENING DID YOU HAVE A DRINK CONTAINING ALCOHOL IN THE PAST YEAR?NO POINTS0 INTERPRETATIONNEGATIVE RECREATIONAL DRUG USE DRUG USE?NO CAFFEINE CAFFEINE USE?YES HOW OFTEN AND HOW MUCH? 2 CUPS COFFEE/DAY [facility]VENT [id number] DENOMINATIONAL LANGUAGE LANGUAGES SPOKEN:[employer] OF [place] EDUCATION LEVEL OF EDUCATION:NOT FINISHED HIGH SCHOOL 10TH GRADE LEARNING BARRIERS / SPECIAL NEEDS BARRIERS TO LEARNING?NO HEARING IMPAIRED?NO VISION IMPAIRED?YES :CORRECTIVE LENSES COGNITIVELY IMPAIRED?NO READINESS TO LEARN?YES LEARNING PREFERENCES?NO LEARNING CAPABILITIES PRESENT?YES EMOTIONAL BARRIERS?NO SPECIAL DEVICES?NO FISH BONING MACHINE FEEDER NEEDED?NO DOMESTIC VIOLENCE DO YOU FEEL SAFE IN YOUR ENVIRONMENT?YES PAIN CLINIC PFS, CLERGY, PUBLIC HEALTH REFERRALS PFS REFERRAL NEEDED?NO CLERGY REFERRAL NEEDED?NO PUBLIC HEALTH REFERRAL NEEDED?NO WAS THE PROVIDER NOTIFIED OF ANY PERTINENT INFO? N/A HAS THE PATIENT BEEN EDUCATED REGARDING HIS/HER PLAN OF CARE?YES HAS THE PATIENT BEEN EDUCATED REGARDING PAIN, THE RISK FOR PAIN, THE IMPORTANCE OF EFFECTIVE PAIN MANAGEMENT, AND THE PAIN ASSESSMENT PROCESS?YES ADVANCE DIRECTIVE ADVANCE DIRECTIVE DISCUSSED WITH PATIENT:YES 11/07/18 PT DOES NOT HAVE ADVANCED DIRECTIVES, DECLINED INFORMATION OR ASSISTANCE IN FILLING OUT HCP AT THIS TIME. AD REVIEWED WITH PT 09/13/18 1330 LAS11/07/18 REVIEWED WITH PT. MARISA. HOSPITALIZATION/MAJOR DIAGNOSTIC PROCEDURE TUMOR ON L OVARY 2013 HYSTERECTOMY 1993 C SECTIONS 1987, 1988, 1990, 1991 CHOLECYSTECTOMY REVIEW OF SYSTEMS REVIEWED BY: PROVIDER: RAMSES LANDIN MD . CONSTITUTIONAL: ANY CHANGE IN YOUR MEDICAL CONDITION? NO . CHILLS NO . FEVER NO . INFECTION: DO YOU HAVE NEW INFECTIONS? NO . DO YOU HAVE HISTORY OF MRSA? NO . MUSCULOSKELETAL: ANY NEW PATTERNS OF PAIN OR NUMBNESS? YES, NUMBNESS IN THIGHS IS ALL THE TIME NOW. . GASTROENTEROLOGY: ANY NEW CHANGE IN BOWEL CONTROL? NO . GENITOURINARY: ANY NEW CHANGE IN BLADDER CONTROL? NO . IS THERE A CHANCE YOU COULD BE ? NO . HEMATOLOGY/LYMPH: DO YOU TAKE ANY BLOOD THINNERS? (FOR EXAMPLE- COUMADIN, PLAVIX, AGGRENOX, PLATEL, PRADAXA, OR XARELTO) NO . WHEN WAS YOUR LAST DOSE? DATE: TIME: . NEUROLOGY: HAVE YOU FALLEN IN THE PAST 12 MONTHS? NO . ANY NEW EXTREMITY NUMBNESS OR WEAKNESS? YES, THIGHS SEEM TO BE NUMB ALL THE TIME NOW. . CARDIOLOGY: DO YOU HAVE A PACEMAKER OR DEFIBRILLATOR? NO . RESPIRATORY: HAVE YOU BEEN SICK IN THE PAST WEEK? NO . FEVER NO . FLU LIKE SYMPTOMS? NO . COUGH YES, NON-PRODUCTIVE, IRRITATING COUGH FOR APPROX. 1 WEEK, STATES THIS HAS SUBSIDED NOW. . INTEGUMENTARY: DO YOU HAVE ANY RASHES OR OPEN SORES? NO . ALLERGIC/IMMUNO: ARE YOU ALLERGIC TO IV DYE? NO . ANY NEW ALLERGIES? NO . PSYCHIATRIC: DO YOU HAVE THOUGHTS OF HURTING YOURSELF OR SOMEONE ELSE? NO . ARE YOU ABUSED, NEGLECTED, OR IN AN UNSAFE ENVIRONMENT? NO . ENDOCRINOLOGY: ARE YOU DIABETIC? YES FSBS 140 AT 1200 TODAY . OTHER: DO YOU NEED ANY PRESCRIPTIONS? NO . IF YES, PLEASE LIST: ____ . ANY NEW PROBLEMS WITH YOUR MEDICATIONS? YES, SHE STOPPED THE CYMBALTA DUE TO IT CAUSING SEVERE HEADACHES . WHEN DID YOU LAST EAT? ____ . WHEN DID YOU LAST DRINK? ____ . WHAT DID YOU LAST DRINK? ____ . NAME OF PERSON DRIVING YOU HOME? ____ . DO YOU HAVE ANY OTHER QUESTIONS OR CONCERNS NO . VITAL SIGNS WT 231 LBS, HT 64.5 IN, BMI 39.03 INDEX, BP 121/76 MM HG, HR 82 /MIN, RR 16 /MIN, TEMP 97.6 F, OXYGEN SAT % 95%, SAFE IN ENV? (Y/N) Y, NA INITIALS AW 1338, REVIEWED BY: MARISA. EXAMINATION GENERAL EXAMINATION: PATIENT IS ALERT O X 3 AND COOPERATIVE. LUNGS CLEAR, TO AUSCULTATION. HEART: NO MURMURS OR GALLOPS; FACIAL CRANIAL NERVES ARE GROSSLY NORMAL. GOOD SYMMETRY OF FACIAL MUSCLE MOVEMENT. NORMAL VISUAL CHOI. TENDERNESS OVER THE RIGHT AND LEFT GREATER TROCHANTER OF THE FEMUR. ASSESSMENTS PAIN IN LEFT HIP - M25.552 (PRIMARY) PAIN IN RIGHT HIP - M25.551 TREATMENT PAIN IN LEFT HIP CLINICAL NOTES: WE DISCUSSED SEVERAL ISSUES WITH MRS. GARRETT'S PAIN MANAGEMENT CASE. DUE TO THE PAIN IN BOTH HIPS, I WOULD LIKE TO MOVE FORWARD WITH A RIGHT AND LEFT GREATER TROCHANTER OF THE FEMUR BLOCK. WE DISCUSSED THE BENEFITS, RISKS, AND ALTERNATIVES OF THE INJECTIONS AND THE PATIENT WOULD LIKE TO PROCEED. THE PATIENT WOULD LIKE TO PROCEED WITH IV SEDATION DUE TO PAIN AND ANXIETY ASSOCIATED WITH THE PROCEDURE. THE PATIENT WILL FOLLOW UP IN 2 WEEKS. INSTRUCTIONS WERE GIVEN, QUESTIONS WERE ANSWERED, PATIENT REPORTS UNDERSTANDING AND AGREES WITH THE PLAN. I, JOHNNY MARLOW, DOCUMENTED THE ABOVE INFORMATION ACTING A SCRIBE FOR DR. LANDIN. I HAVE REVIEWED THE ABOVE DOCUMENT, WRITTEN BY JOHNNY MARLOW SCRIBChandan AND I VERIFY THAT IT IS ACCURATE. PROCEDURE CODES FA211 ESTABILISHED PATIENT [facility] FAC[facility] CHARGE G4531 CURRENT MEDS W/DOSAGES DOCUMENTED G4330 PAIN ASSESS POS TOOL F/U PLAN DOC DISPOSITION & COMMUNICATION FOLLOW UP 2 WEEKS ELECTRONICALLY SIGNED BY RAMSES LANDIN MD, MD ON 11/24/2018 AT 05:54 PM EST DISCLAIMER : THIS IS A VISIT SUMMARY EXTRACTED FROM THE [employer] CHART. IT IS NOT A COPY OF THE [employer] PROGRESS NOTE. MTDD
== END ==
LOC: M PAIN 13:00
PROVIDERS: ATTEND Anesthesiology
DX: M25.552 Pain in left hip (principal); M25.551 Pain in right hip; G89.29 Other chronic pain; K76.0 Fatty (change of) liver, not elsewhere classified; E11.43 Type 2 diabetes mellitus with diabetic autonomic (poly)neuropathy; F32.9 Major depressive disorder, single episode, unspecified; F17.210 Nicotine dependence, cigarettes, uncomplicated; E66.9 Obesity, unspecified; Z68.39 Body mass index [BMI] 39.0-39.9, adult; Z79.82 Long term (current) use of aspirin; Z79.4 Long term (current) use of insulin; Z79.899 Other long term (current) drug therapy; Z88.8 Allergy status to other drugs, medicaments and biological substances; Z86.14 Personal history of Methicillin resistant Staphylococcus aureus infection

== ENCOUNTER → 2018-11-12 | Outpatient (CLI) | payer BC ==
[~2018-11-12] MED LIST changes: +BUPIVACAINE HCL 0.25% 30 ML VIAL As Ordered ONE; +ISOVUE-M 300 61% 15ML VIAL (Q9967) As Ordered ONE; +LIDOCAINE 1% SDV INJ 30 ML VIAL As Ordered ONE; +MIDAZOLAM INJ 2 MG/2 ML VIAL (J2250) As Ordered ONE; +TRIAMCINOLONE ACETONIDE SUSP 40 MG/ML VIAL (J3301) As Ordered ONE; +fentaNYL 100 MCG/2 ML INJECTION (J3010) As Ordered ONE
--- NOTE | 2018-11-12 13:26 | REP ---
A left hip: Single view. History: Left side greater trochanter injection for pain. 30 seconds of fluoroscopy time is reported. Findings: A single last image hold fluoroscopically obtained spot radiograph of the left hip documents needle position and contrast injection associated with injection procedure. Electronically Signed by Nikko Swanson MD 11/12/2018 01:17 P
--- NOTE | 2018-11-26 00:12 | ECWPNPC ---
PATIENT NAME: ZULAY GARRETT : 1965 GENDER: FEMALE VISIT DATE: 11/12/2018 DISCHARGE DATE: 11/12/18 1245 VISIT LOCKED DATE TIME: PHYSICIAN: RAMSES LANDIN MD RESOURCE: RAMSES LANDIN MD REASON FOR APPOINTMENT 1. LEFT GREATER TROCHANTER WITH IV SEDATION PER DR Castano HISTORY OF PRESENT ILLNESS HISTORY OF PRESENT ILLNESS: PAIN THE PATIENT DESCRIBES THE PAIN... FALL RISK SCREENING: SCREENING :NO FALLS IN THE PAST YEAR CURRENT MEDICATIONS TAKING ACCU-CHEK JUAN JOSE TEST STRIP 1 SUBCUTANEOUSLY 2-3 TIMES DAILY E11.9 TAKING LANCETS FOR ONE TOUCH ULTRA 2 DEVICE MISCELLANEOUS DIRECTED SC DX : 250.02/ THREE TIMES DAILY TAKING ASPIRIN 81 MG TABLET CHEWABLE 1 TABLET ORALLY ONCE A DAY, NOTES: 11/10/18 PM TAKING SIMVASTATIN 20 MG TABLET 1 TABLET IN THE EVENING ORALLY ONCE A DAY, NOTES: 11/11/18 PM TAKING DRISDOL 91318 UNIT CAPSULE 1 CAPSULE ORALLY WEEKLY, NOTES: ONE WEEK AGO TAKING DULCOLAX 5 MG TABLET DELAYED RELEASE 1 TABLET NEEDED ORALLY ONCE A DAY, NOTES: NONE LATELY TAKING GLUCOMETER DIRECTED E11.9 DAILY TAKING LANCET DEVICE - MISCELLANEOUS DIRECTED E 11.9 THREE TIMES DAILY TAKING ONE TOUCH ULTRA BLUE STRIPS DIRECTED SUBCUTANEOUSLY E11.9, THREE TIMES DAILY TAKING PEN NEEDLES 31G X 6 MM MISCELLANEOUS DIRECTED E11.9 BEFORE BEDTIME TAKING LANTUS SOLOSTAR 100 UNIT/ML SOLUTION PEN-INJECTOR 29 UNITS SUBCUTANEOUS BEFORE BEDTIME, NOTES: 11/10/18 TAKING GLYBURIDE 5MG TABLET 2 TABLET ORALLY TWICE A DAY, NOTES: 11/11/18 1700 NOT-TAKING CYMBALTA 20 MG CAPSULE DELAYED RELEASE PARTICLES 1 CAPSULE ORALLY FOR PAIN ONCE A DAY MDD1, NOTES: NOT TAKING DUE TO SEVERE HEADACHES MEDICATION LIST REVIEWED AND RECONCILED WITH THE PATIENT PAST MEDICAL HISTORY OBESITY, MORBID, D/T EXCESS CALORIES HEPATOMEGALY 07/[address], 08/27 LIVER US WITH DIFFUSE FATTY INFILTRATION, NONALCOHOLIC MILD GASTROPARESIS NM 07/27 MRI LSPINE 01/25 - SM L PARACENTRAL DISC PROTRUSION AT L1-2 WITH MINIMAL THECAL SAC COMPRESSION, DIFFUSE DISC BULGE AT L4-5 WITH MINIMAL THECAL SAC COMPRESSION - DR JOHNSON H/O MRSA 07/24 EKG 06/23 - NL DM2 WITH H/O GESTATION DIABETES WITH GASTROPARESIS, HAIRSPRING STAKER INSULIN USE NONCOMPLIANCE, MOSTLY DUE TO INABILITY TO PAY DEPRESSION 04/28 CT CHEST WITH PULM NODULES, FOLLOWS WITH PULM 03/28 COLONOSCOPY, REINDL, REPEAT IN 2 YEARS SUBOPTIMAL PREP CLEMENCIA DEP CHRONIC PAIN, L SPINE, L ANKLE, L HIP VIT D DEF CHRONIC CONSTIPATION 12/01 CT CHEST - STABLE NODULES, NO FUTHER IMAGING REQUIRED ALLERGIES AMITIZA: ANAPHYLAXIS: ALLERGY ETHYL ALCOHOL: RASH: ALLERGY METFORMIN HCL: DYSPNEA: ALLERGY CYMBALTA: SEVERE HEADACHES: SIDE EFFECTS SURGICAL HISTORY HYSTERECTOMY PARTIAL AND FULL 1992 CHOLECYSTECTOMY LEFT ANKLE REPAIR CERVICAL SPINE REPAIR X4 FAMILY HISTORY MOTHER: 69 YRS, DIAGNOSED WITH OTHER DAUGHTER(S): 29 YRS, DGT PASSED 29 - DM1, HEART DISEASE, DIAGNOSED WITH DIABETES 5 BROTHER(S) , 10 SISTER(S) - HEALTHY. 1DAUGHTER(S) . MOTHER- KIDNEY STONE 3 DAYS LATERDAUGHTER- DIABETIC, LUPUS ( AT 29) DID NOT KNOW FATHER. SOCIAL HISTORY GENERAL: TOBACCO USE ARE YOU A:CURRENT SMOKER ARE YOU INTERESTED IN QUITTING?NOT READY TO QUIT COUNSELED THE PATIENT ON SMOKING EFFECTS, EDUCATION [id number]/24/2019 HOW MANY CIGARETTES A DAY DO YOU SMOKE?11-20 HOW OFTEN DO YOU SMOKE CIGARETTES?EVERY DAY PATIENT COUNSELED ON THE DANGERS OF TOBACCO USE AND URGED TO QUIT:11/07/2018 ALCOHOL SCREENING DID YOU HAVE A DRINK CONTAINING ALCOHOL IN THE PAST YEAR?NO POINTS0 INTERPRETATIONNEGATIVE RECREATIONAL DRUG USE DRUG USE?NO CAFFEINE CAFFEINE USE?YES HOW OFTEN AND HOW MUCH? 2 CUPS COFFEE/DAY ZOROASTRIANISM [id number] ANABAPTIST LANGUAGE LANGUAGES SPOKEN:GUAMANIAN EDUCATION LEVEL OF EDUCATION:NOT FINISHED HIGH SCHOOL 10TH GRADE LEARNING BARRIERS / SPECIAL NEEDS BARRIERS TO LEARNING?NO HEARING IMPAIRED?NO VISION IMPAIRED?YES :CORRECTIVE LENSES COGNITIVELY IMPAIRED?NO READINESS TO LEARN?YES LEARNING PREFERENCES?NO LEARNING CAPABILITIES PRESENT?YES EMOTIONAL BARRIERS?NO SPECIAL DEVICES?NO ELECTRIC NEEDLE SPECIALIST NEEDED?NO DOMESTIC VIOLENCE DO YOU FEEL SAFE IN YOUR ENVIRONMENT?YES PAIN CLINIC PFS, CLERGY, PUBLIC HEALTH REFERRALS PFS REFERRAL NEEDED?NO CLERGY REFERRAL NEEDED?NO PUBLIC HEALTH REFERRAL NEEDED?NO WAS THE PROVIDER NOTIFIED OF ANY PERTINENT INFO? N/A HAS THE PATIENT BEEN EDUCATED REGARDING HIS/HER PLAN OF CARE?YES HAS THE PATIENT BEEN EDUCATED REGARDING PAIN, THE RISK FOR PAIN, THE IMPORTANCE OF EFFECTIVE PAIN MANAGEMENT, AND THE PAIN ASSESSMENT PROCESS?YES ADVANCE DIRECTIVE ADVANCE DIRECTIVE DISCUSSED WITH PATIENT:YES 11/12/18 PT DOES NOT HAVE ADVANCED DIRECTIVES, DECLINED INFORMATION OR ASSISTANCE IN FILLING OUT HCP AT THIS TIME. BV REVIEWED WITH PT 09/13/18 1330 LAS11/07/18 REVIEWED WITH PT. SASKIAD WITH PT 11/12/18 1034 BV. 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 CONSTITUTIONAL: ANY CHANGE IN YOUR MEDICAL CONDITION? NO . CHILLS NO . FEVER NO . INFECTION: DO YOU HAVE NEW INFECTIONS? NO . DO YOU HAVE HISTORY OF MRSA? NO . MUSCULOSKELETAL: ANY NEW PATTERNS OF PAIN OR NUMBNESS? NO . GASTROENTEROLOGY: ANY NEW CHANGE IN BOWEL CONTROL? NO . GENITOURINARY: ANY NEW CHANGE IN BLADDER CONTROL? NO . IS THERE A CHANCE YOU COULD BE ? NO . HEMATOLOGY/LYMPH: DO YOU TAKE ANY BLOOD THINNERS? (FOR EXAMPLE- COUMADIN, PLAVIX, AGGRENOX, PLATEL, PRADAXA, OR XARELTO) NO . WHEN WAS YOUR LAST DOSE? DATE: TIME: . NEUROLOGY: HAVE YOU FALLEN IN THE PAST 12 MONTHS? NO . ANY NEW EXTREMITY NUMBNESS OR WEAKNESS? NO . CARDIOLOGY: DO YOU HAVE A PACEMAKER OR DEFIBRILLATOR? NO . RESPIRATORY: HAVE YOU BEEN SICK IN THE PAST WEEK? NO . FEVER NO . FLU LIKE SYMPTOMS? NO . COUGH NO . INTEGUMENTARY: DO YOU HAVE ANY RASHES OR OPEN SORES? NO . ALLERGIC/IMMUNO: ARE YOU ALLERGIC TO IV DYE? NO . ANY NEW ALLERGIES? NO . PSYCHIATRIC: DO YOU HAVE THOUGHTS OF HURTING YOURSELF OR SOMEONE ELSE? NO . ARE YOU ABUSED, NEGLECTED, OR IN AN UNSAFE ENVIRONMENT? NO . ENDOCRINOLOGY: ARE YOU DIABETIC? YES, FSBS WAS 120 AT 5AM . OTHER: DO YOU NEED ANY PRESCRIPTIONS? NO . IF YES, PLEASE LIST: ____ . ANY NEW PROBLEMS WITH YOUR MEDICATIONS? NO . WHEN DID YOU LAST EAT? 11/11/18 1900 . WHEN DID YOU LAST DRINK? 11/12/18 0600 . WHAT DID YOU LAST DRINK? WATER . NAME OF PERSON DRIVING YOU HOME? RANDY GARRETT . DO YOU HAVE ANY OTHER QUESTIONS OR CONCERNS NO . VITAL SIGNS WT 233.6 LBS, HT 64.5 IN, BMI 39.47 INDEX, BP 175/95 MM HG, HR 98 /MIN, RR 16 /MIN, TEMP 97.0 F, OXYGEN SAT % 96%, NA INITIALS AW 1005, REVIEWED BY: BV. ASSESSMENTS TROCHANTERIC BURSITIS OF LEFT HIP - M70.62 (PRIMARY) PROCEDURES PREPROCEDURE DIAGNOSIS: BURSITIS AT THE LEFT GREATER TROCHANTER OF THE FEMUR. POSTPROCEDURE DIAGNOSIS: BURSITIS AT THE LEFT GREATER TROCHANTER OF THE FEMUR. PROCEDURE: INJECTION AT THE BURSA OF THE OF THE LEFT GREATER TROCHANTER OF THE FEMUR UNDER FLUOROSCOPIC GUIDANCE. SURGEON: DR. RAMSES LANDIN NURSE ASSISTANT: NONEANESTHESIA: LOCAL WITH IV SEDATION. PREOPERATIVE NOTE: THE PATIENT HAS A HISTORY OF LEFT HIP PAIN. I EVALUATED THE PATIENT AND REVIEWED THE CHART. WE BOTH AGREE ON INJECTING OVER THE BURSA OF THE LEFT GREATER TROCHANTER OF THE FEMUR. I WENT THROUGH THE RISKS, ALTERNATIVES, AND BENEFITS ASSOCIATED WITH THIS PROCEDURE. THE PATIENT WOULD LIKE TO PROCEED AND GIVE CONSENT TO PERFORMED THE PROCEDURE. PATIENT WOULD LIKE TO MOVE FORWARD WITH IV SEDATION DUE TO DISCOMFORT, PAIN AND ANXIETY ASSOCIATED WITH THE PROCEDURE. THE PATIENT DENIES UNEXPLAINABLE WEIGHT LOSS, FEVERS, CHILLS, OR CHANGES IN HIS URINARY OR BOWEL CONTROL. DESCRIPTION OF PROCEDURE: AFTER CONSENT WAS TAKEN, THE PATIENT WAS BROUGHT TO THE PROCEDURE ROOM AND PLACED IN THE RIGHT LATERAL DECUBITUS POSITION. THE LEFT HIP AREA WAS CLEANED WITH CHLORAPREP SOLUTION AND DRAPED ASEPTICALLY. THE PROCEDURE WAS DONE UNDER STERILE CONDITIONS. I CHECKED LATERALITY WITH THE PATIENT AND THE STAFF IN THE PROCEDURE ROOM AT THE MOMENT OF THE TIME OUT. UNDER FLUOROSCOPIC GUIDANCE, TARGET WAS SELECTED AT THE LEFT GREATER TROCHANTER OF THE FEMUR. LIDOCAINE WAS USED TO NUMB THE SKIN AND THE SUBCUTANEOUS TISSUE BELOW IT. SPINAL NEEDLE, 22-GAUGE WAS ADVANCED UNDER FLUOROSCOPIC GUIDANCE AND FOLLOWING PATIENT FEEDBACK UNTIL THE TARGET WAS TOUCHED. POSITION OF THE NEEDLE WAS VERIFIED WITH AP AND LATERAL VIEWS. AFTER PROPER POSITION OF THE NEEDLE WAS ACHIEVED, ISOVUE M DYE, 30%, 0.25 ML WAS INJECTED SHOWING ADEQUATE SPREAD OF THE DYE. THEN A SOLUTION OF 20 ML OF BUPIVACAINE 0.25% AND KENALOG 40 MG WAS INJECTED. PATIENT RECEIVED VERSED 2 MG AND FENTANYL 300 MCG IV DIVIDED DOSES. THERE WAS NO EVIDENCE OF BLOOD, PARESTHESIA, OR CEREBROSPINAL FLUID. THE PATIENT WAS SENT TO THE RECOVERY ROOM. THE PATIENT WAS MOVING THE EXTREMITIES AND DOING WELL. THERE WERE NO COMPLICATIONS DURING THE PROCEDURE. FLUOROSCOPIC TIME WAS 30 SECONDS. FACE TO FACE TIME WAS 20 MINUTES.POSTOPERATIVE NOTE: I DISCUSSED ALTERNATIVES WITH THE PATIENT. WE WILL SEE THE PATIENT BACK IN SEVERAL WEEKS FOR REEVALUATION OF THE CASE. I AM LOOKING FOR LONG-LASTING PAIN RELIEF WITH THIS INTERVENTION. FURTHER RECOMMENDATIONS WILL BE DONE DEPENDING ON HOW THE PATIENT DOES. THERE WERE NO COMPLICATIONS. I, JOHNNY MARLOW, DOCUMENTED THE ABOVE INFORMATION ACTING A SCRIBE FOR DR. LANDIN. I HAVE REVIEWED THE ABOVE DOCUMENT, WRITTEN BY JOHNNY MARLOW SCRIBChandan AND I VERIFY THAT IT IS ACCURATE. DIAGNOSTIC IMAGING [facility] FLUORO GUIDANCE (PAIN)[id number] PROCEDURE CODES 6045F RADXPS IN END [id number] PXD [id number] DRAIN/INJ JOINT/BURSA W/O US, [place]IFI[place]: [place] [id number] NEEDLE LOCALIZATION BY XRAY, MODIFIERS: [id number] MOD SED SAME PHYS/QHP 5/>YRS DISPOSITION & COMMUNICATION FOLLOW UP 3 WEEKS ELECTRONICALLY SIGNED BY RAMSES LANDIN MD, ON 11/25/2018 AT 05:43 PM EST DISCLAIMER : THIS IS A VISIT SUMMARY EXTRACTED FROM THE [employer] CHART. IT IS NOT A COPY OF THE [employer] PROGRESS NOTE. MTDD
== END ==
LOC: M PAIN 10:00
PROVIDERS: ATTEND Anesthesiology
DX: M70.62 Trochanteric bursitis, left hip (principal); E11.43 Type 2 diabetes mellitus with diabetic autonomic (poly)neuropathy; K76.0 Fatty (change of) liver, not elsewhere classified; F32.9 Major depressive disorder, single episode, unspecified; F17.210 Nicotine dependence, cigarettes, uncomplicated; E66.09 Other obesity due to excess calories; Z68.39 Body mass index [BMI] 39.0-39.9, adult; Z79.82 Long term (current) use of aspirin; Z79.4 Long term (current) use of insulin; Z79.899 Other long term (current) drug therapy; Z88.8 Allergy status to other drugs, medicaments and biological substances
CPT/HCPCS: 20610; 77002; 99152; J2250; J3010; J3301; Q9967

== ENCOUNTER → 2019-02-19 | Outpatient (CLI) | payer BC ==
[~2019-02-19] MED LIST changes: -ASPI1TAB PO; +ASPI81TA26 PO; -MAGN1TAB25 PO; +MAGN1TAB26 PO; -MIDAZOLAM INJ 2 MG/2 ML VIAL (J2250) As Ordered ONE; +diazePAM 5 MG TAB As Ordered ONE; -fentaNYL 100 MCG/2 ML INJECTION (J3010) As Ordered ONE; +oxyCODONE 5MG TAB As Ordered ONE
--- NOTE | 2019-02-19 14:52 | REP ---
Partial lumbar spine series: Two views . History: Injection procedure for pain. 27 seconds of fluoroscopy time is reported. Findings: A sequence of two fluoroscopically obtained last image hold procedural spot radiographs of the lumbar spine document needle position and contrast injection associated with injection procedure. Electronically Signed by Nikko Swanson MD 02/19/2019 02:43 P
--- NOTE | 2019-03-08 23:42 | ECWPNPC ---
PATIENT NAME: ZULAY GARRETT : 1965 GENDER: FEMALE VISIT DATE: 02/19/2019 DISCHARGE DATE: 02/19/19 1037 VISIT LOCKED DATE TIME: PHYSICIAN: RAMSES LANDIN MD RESOURCE: RAMSES LANDIN MD REASON FOR APPOINTMENT 1. BILATERAL L4-L5, L5-S1 LFBT HISTORY OF PRESENT ILLNESS HISTORY OF PRESENT ILLNESS: PAIN THE PATIENT DESCRIBES THE PAIN... FALL RISK SCREENING: SCREENING :NO FALLS REPORTED IN THE LAST YEAR CURRENT MEDICATIONS TAKING GLYBURIDE 5MG TABLET 2 TABLET ORALLY TWICE A DAY, NOTES: 02/19/19 AM TAKING ACCU-CHEK JUAN JOSE TEST STRIP 1 SUBCUTANEOUSLY 2-3 TIMES DAILY E11.9 TAKING LANCETS FOR ONE TOUCH ULTRA 2 DEVICE MISCELLANEOUS DIRECTED SC DX : 250.02/ THREE TIMES DAILY TAKING ASPIRIN 81 MG TABLET CHEWABLE 1 TABLET ORALLY ONCE A DAY, NOTES: 02/18/19 TAKING SIMVASTATIN 20 MG TABLET 1 TABLET IN THE EVENING ORALLY ONCE A DAY, NOTES: 02/18/19 TAKING DRISDOL 79755 UNIT CAPSULE 1 CAPSULE ORALLY WEEKLY, NOTES: LAST SUNDAY TAKING DULCOLAX 5 MG TABLET DELAYED RELEASE 1 TABLET NEEDED ORALLY ONCE A DAY, NOTES: NONE LATELY TAKING GLUCOMETER DIRECTED E11.9 DAILY TAKING LANCET DEVICE - MISCELLANEOUS DIRECTED E 11.9 THREE TIMES DAILY TAKING ONE TOUCH ULTRA BLUE STRIPS DIRECTED SUBCUTANEOUSLY E11.9, THREE TIMES DAILY TAKING PEN NEEDLES 31G X 6 MM MISCELLANEOUS DIRECTED E11.9 BEFORE BEDTIME TAKING LANTUS SOLOSTAR 100 UNIT/ML SOLUTION PEN-INJECTOR 29 UNITS SUBCUTANEOUS BEFORE BEDTIME, NOTES: 02/17/19 NOT-TAKING CYMBALTA 20 MG CAPSULE DELAYED RELEASE PARTICLES 1 CAPSULE ORALLY FOR PAIN ONCE A DAY MDD1, NOTES: NOT TAKING DUE TO SEVERE HEADACHES MEDICATION LIST REVIEWED AND RECONCILED WITH THE PATIENT PAST MEDICAL HISTORY OBESITY, MORBID, D/T EXCESS CALORIES HEPATOMEGALY 07/[address], 08/27 LIVER US WITH DIFFUSE FATTY INFILTRATION, NONALCOHOLIC MILD GASTROPARESIS NM 07/27 MRI LSPINE 01/25 - SM L PARACENTRAL DISC PROTRUSION AT L1-2 WITH MINIMAL THECAL SAC COMPRESSION, DIFFUSE DISC BULGE AT L4-5 WITH MINIMAL THECAL SAC COMPRESSION - DR JOHNSON H/O MRSA 07/24 EKG 06/23 - NL DM2 WITH H/O GESTATION DIABETES WITH GASTROPARESIS, PRISON INSULIN USE NONCOMPLIANCE, MOSTLY DUE TO INABILITY TO PAY DEPRESSION 04/28 CT CHEST WITH PULM NODULES, FOLLOWS WITH PULM 03/28 COLONOSCOPY, REINDL, REPEAT IN 2 YEARS SUBOPTIMAL PREP CLEMENCIA DEP CHRONIC PAIN, L SPINE, L ANKLE, L HIP VIT D DEF CHRONIC CONSTIPATION 12/01 CT CHEST - STABLE NODULES, NO FUTHER IMAGING REQUIRED ALLERGIES AMITIZA: ANAPHYLAXIS - ALLERGY ETHYL ALCOHOL: RASH - ALLERGY METFORMIN HCL: DYSPNEA - ALLERGY CYMBALTA: SEVERE HEADACHES - SIDE EFFECTS SURGICAL HISTORY HYSTERECTOMY PARTIAL AND FULL 1992 CHOLECYSTECTOMY LEFT ANKLE REPAIR CERVICAL SPINE REPAIR X4 FAMILY HISTORY MOTHER: 69 YRS, DIAGNOSED WITH OTHER DAUGHTER(S): 29 YRS, DGT PASSED 29 - DM1, HEART DISEASE, DIABETES 5 BROTHER(S) , 10 SISTER(S) - HEALTHY. 1DAUGHTER(S) . MOTHER- KIDNEY STONE 3 DAYS LATER\\NDAUGHTER- DIABETIC, LUPUS ( AT 29)\\N DID NOT KNOW FATHER. SOCIAL HISTORY GENERAL: TOBACCO USE ARE YOU A:CURRENT SMOKER ARE YOU INTERESTED IN QUITTING?NOT READY TO QUIT COUNSELED THE PATIENT ON SMOKING EFFECTS, EDUCATION [id number]/08/2019 HOW MANY CIGARETTES A DAY DO YOU SMOKE?11-20 HOW OFTEN DO YOU SMOKE CIGARETTES?EVERY DAY PATIENT COUNSELED ON THE DANGERS OF TOBACCO USE AND URGED TO QUIT:01/17/2019 PAIN CLINIC PFS, CLERGY, PUBLIC HEALTH REFERRALS PFS REFERRAL NEEDED?NO CLERGY REFERRAL NEEDED?NO PUBLIC HEALTH REFERRAL NEEDED?NO WAS THE PROVIDER NOTIFIED OF ANY PERTINENT INFO? N/A HAS THE PATIENT BEEN EDUCATED REGARDING HIS/HER PLAN OF CARE?YES HAS THE PATIENT BEEN EDUCATED REGARDING PAIN, THE RISK FOR PAIN, THE IMPORTANCE OF EFFECTIVE PAIN MANAGEMENT, AND THE PAIN ASSESSMENT PROCESS?YES LATEX QUESTIONNAIRE LATEX ALLERGY : HAVE YOU EVER DEVELOPED ANY TYPE OF REACTION AFTER HANDLING LATEX PRODUCTS SUCH RUBBER GLOVES, CONDOMS, DIAPHRAGMS, BALLOONS, SOCKS, OR UNDERWEAR?NO LATEX ALLERGY : HAVE YOU EVER DEVELOPED ANY TYPE OF REACTION DURING OR AFTER DENTAL APPOINTMENT, VAGINAL/RECTAL EXAMINATION, SURGICAL PROCEDURE, OR ANY OTHER EXPOSURE?NO DATE ASKED : 01/17/2019 LATEX RISK : HAVE YOU EVER HAD ANY DIFFICULTY BREATHING OR HIVES AFTER EATING OR HANDLING ANY FRUITS, OR VEGETABLES; SUCH KIWI, BANANAS, STONE FRUITS, OR CHESTNUTSNO LATEX RISK : DO YOU HAVE A PREVIOUS PERSONAL HISTORY OF MORE THAN NINE SURGERIES, SPINA BIFIDA, OR REPEATED CATHERTIZATIONS? YES - PLEASE INDICATE : > 9 SURGERIES LATEX RISK : ARE YOU FREQUENTLY EXPOSED TO LATEX PRODUCTS IN YOUR OCCUPATION?NO CAFFEINE CAFFEINE USE?YES HOW OFTEN AND HOW MUCH? 2 CUPS COFFEE/DAY ADVANCE DIRECTIVE ADVANCE DIRECTIVE DISCUSSED WITH PATIENT:YES PATIENT DECLINES HCP INFORMATION. EDUCATION LEVEL OF EDUCATION:NOT FINISHED HIGH SCHOOL 10TH GRADE GNOSTICIST [id number] RELIGION LANGUAGE LANGUAGES SPOKEN:[place] DOMESTIC VIOLENCE DO YOU FEEL SAFE IN YOUR ENVIRONMENT?YES ALCOHOL SCREENING DID YOU HAVE A DRINK CONTAINING ALCOHOL IN THE PAST YEAR?NO POINTS0 INTERPRETATIONNEGATIVE RECREATIONAL DRUG USE DRUG USE?NO LEARNING BARRIERS / SPECIAL NEEDS BARRIERS TO LEARNING?NO HEARING IMPAIRED?NO VISION IMPAIRED?YES COGNITIVELY IMPAIRED?NO :CORRECTIVE LENSES READINESS TO LEARN?YES LEARNING PREFERENCES?NO LEARNING CAPABILITIES PRESENT?YES EMOTIONAL BARRIERS?NO SPECIAL DEVICES?NO DINING ROOM HOST NEEDED?NO REVIEWED WITH PT 09/13/18 1330 LAS11/07/18 REVIEWED WITH PT. ADREVIEWED WITH PT 11/12/18 1034 BVREVIEWED WITH PATIENT 01/17/19 1428 JS. 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 CONSTITUTIONAL: ANY CHANGE IN YOUR MEDICAL CONDITION? NO . CHILLS NO . FEVER NO . INFECTION: DO YOU HAVE NEW INFECTIONS? NO . DO YOU HAVE HISTORY OF MRSA? YES . MUSCULOSKELETAL: ANY NEW PATTERNS OF PAIN OR NUMBNESS? NO . GASTROENTEROLOGY: ANY NEW CHANGE IN BOWEL CONTROL? NO . GENITOURINARY: ANY NEW CHANGE IN BLADDER CONTROL? NO . IS THERE A CHANCE YOU COULD BE ? NO . HEMATOLOGY/LYMPH: DO YOU TAKE ANY BLOOD THINNERS? (FOR EXAMPLE- COUMADIN, PLAVIX, AGGRENOX, PLATEL, PRADAXA, OR XARELTO) NO . WHEN WAS YOUR LAST DOSE? DATE: TIME: . NEUROLOGY: HAVE YOU FALLEN IN THE PAST 12 MONTHS? NO . ANY NEW EXTREMITY NUMBNESS OR WEAKNESS? NO . CARDIOLOGY: DO YOU HAVE A PACEMAKER OR DEFIBRILLATOR? NO . RESPIRATORY: HAVE YOU BEEN SICK IN THE PAST WEEK? NO . FEVER NO . FLU LIKE SYMPTOMS? NO . COUGH NO . INTEGUMENTARY: DO YOU HAVE ANY RASHES OR OPEN SORES? NO . ALLERGIC/IMMUNO: ARE YOU ALLERGIC TO IV DYE? NO . ANY NEW ALLERGIES? NO . PSYCHIATRIC: DO YOU HAVE THOUGHTS OF HURTING YOURSELF OR SOMEONE ELSE? NO . ARE YOU ABUSED, NEGLECTED, OR IN AN UNSAFE ENVIRONMENT? NO . ENDOCRINOLOGY: ARE YOU DIABETIC? YES . OTHER: DO YOU NEED ANY PRESCRIPTIONS? NO . IF YES, PLEASE LIST: ____ . ANY NEW PROBLEMS WITH YOUR MEDICATIONS? NO . WHEN DID YOU LAST EAT? 02/18/19 1900 . WHEN DID YOU LAST DRINK? 02/19/19 0500 . WHAT DID YOU LAST DRINK? WATER . NAME OF PERSON DRIVING YOU HOME? AVELINO . DO YOU HAVE ANY OTHER QUESTIONS OR CONCERNS NO . VITAL SIGNS WT 234.0 LBS, HT 64.5 IN, BMI 39.54 INDEX, BP 170/81 MM HG, HR 83 /MIN, RR 16 /MIN, TEMP 98.0 F, OXYGEN SAT % 96%, NA INITIALS AW 0853. ASSESSMENTS SPONDYLOSIS OF LUMBAR REGION WITHOUT MYELOPATHY OR RADICULOPATHY - M47.816 (PRIMARY) SPONDYLOSIS OF LUMBOSACRAL REGION WITHOUT MYELOPATHY OR RADICULOPATHY - M47.817 TREATMENT SPONDYLOSIS OF LUMBAR REGION WITHOUT MYELOPATHY OR RADICULOPATHY [facility] FACET BLOCK (PAIN)[id number] PROCEDURES PN LUMBAR FACET BLOCK THERAPEUTIC PRE PROCEDURE DIAGNOSIS LUMBAR SPONDYLOSIS, LUMBOSACRAL SPONDYLOSIS POST PROCEDURE DIAGNOSIS LUMBAR SPONDYLOSIS, LUMBOSACRAL SPONDYLOSIS PROCEDURE BILATERAL L4-L5 AND BILATERAL L5-S1 LUMBAR FACET THERAPEUTIC BLOCK SURGEON DR. RAMSES LANDIN SUPERVISOR TANK STORAGE NONE ANESTHESIA LOCAL PRE PROCEDURE NOTE THE PATIENT HAS A HISTORY OF CHRONIC LOW BACK PAIN. I EVALUATE THE PATIENT AND REVIEWED THE CHART. I WENT OVER THE RISKS, ALTERNATIVES, AND BENEFITS ASSOCIATED WITH THIS PROCEDURE. THE PATIENT WOULD LIKE TO PROCEED AND GIVE CONSENT TO PERFORMED THE PROCEDURE. THE PATIENT DENIES UNEXPLAINABLE WEIGHT LOSS, FEVER, CHILLS, OR NEW CHANGES IN URINARY OR BOWEL CONTROL DESCRIPTION OF PROCEDURE THE PATIENT WAS BROUGHT TO THE PROCEDURE ROOM AND PLACED IN THE PRONE POSITION. THE LUMBOSACRAL AREA WAS CLEANED WITH CHLORAPREP SOLUTION AND DRAPED ASEPTICALLY. THE PROCEDURE WAS DONE UNDER STERILE CONDITIONS. I CHECKED LATERALITY AND THE LEVEL WHERE THE PROCEDURE WAS GOING TO BE PERFORMED WITH THE PATIENT AND THE SUPPORTING STAFF AT THE MOMENT OF THE TIME OUT IN THE PROCEDURE ROOM. UNDER FLUOROSCOPIC GUIDANCE, THE TARGET POINT WAS SELECTED AT THE RIGHT AND LEFT L4-L5 AND RIGHT AND LEFT L5-S1 FACET JOINT. TARGET POINT WAS SELECTED AFTER LATERAL ROTATION AND TILT OF THE MAGNIFIER OF THE C-ARM. LIDOCAINE 0.5% WAS USED TO NUMB THE SKIN AND THE SUBCUTANEOUS TISSUE BELOW IT. SPINAL NEEDLES, 22-GAUGE, WERE ADVANCED UNDER FLUOROSCOPIC GUIDANCE AND FOLLOWING PATIENT FEEDBACK UNTIL THE TARGETS WERE TOUCHED. THE POSITION OF THE NEEDLES WAS VERIFIED WITH AP AND LATERAL VIEWS. AFTER PROPER POSITION OF THE NEEDLES WAS ACHIEVED, ISOVUE-M DYE 30% 0.1 ML WAS INJECTED SHOWING ADEQUATE SPREAD OF THE DYE. THEN A SOLUTION OF 1.9 ML OF BUPIVACAINE 0.125% OF KENALOG 10 MG WAS INJECTED AT EACH SITE. THERE WAS NO EVIDENCE OF BLOOD, PARESTHESIA OR CEREBROSPINAL FLUID DURING THE PROCEDURE. THE PATIENT WAS SENT TO THE RECOVERY ROOM. THE PATIENT WAS MOVING THE EXTREMITIES AND DOING WELL. THERE WAS NO COMPLICATION DURING THE PROCEDURE. FLUOROSCOPY TIME WAS 27 SECONDS POST PROCEDURE NOTE THE PATIENT WILL BE SEEN IN A FOLLOW UP IN THE NEXT FEW WEEKS. INSTRUCTIONS WERE GIVEN, QUESTIONS WERE ANSWERED, AND THE PATIENT EXPRESSED UNDERSTANDING AND AGREES WITH THE PLAN. I, JOHNNY MARLOW, DOCUMENTED THE ABOVE INFORMATION ACTING A SCRIBE FOR DR. LANDIN. I HAVE REVIEWED THE ABOVE DOCUMENT, WRITTEN BY JOHNNY CARLSONIBChandan AND I VERIFY THAT IT IS ACCURATE. PROCEDURE CODES 6045F RADXPS IN END [id number] PXD [id number] INJ PARAVERT F JNT L/S 1 LEV, MODIFIERS: 50 [id number] INJ PARAVERT F JNT L/S 2 LEV, MODIFIERS: 50 DISPOSITION & COMMUNICATION FOLLOW UP 3 WEEKS ELECTRONICALLY SIGNED BY RAMSES LANDIN MD, MD ON 03/08/2019 AT 04:04 PM EDT DISCLAIMER : THIS IS A VISIT SUMMARY EXTRACTED FROM THE [employer] CHART. IT IS NOT A COPY OF THE [employer] PROGRESS NOTE. MTDD
== END ==
LOC: M PAIN 08:30
PROVIDERS: ATTEND Anesthesiology
DX: M47.816 Spondylosis without myelopathy or radiculopathy, lumbar region (principal); M47.817 Spondylosis without myelopathy or radiculopathy, lumbosacral region; E11.43 Type 2 diabetes mellitus with diabetic autonomic (poly)neuropathy; F32.9 Major depressive disorder, single episode, unspecified; F17.210 Nicotine dependence, cigarettes, uncomplicated; Z79.82 Long term (current) use of aspirin; Z79.4 Long term (current) use of insulin; Z79.899 Other long term (current) drug therapy; Z88.8 Allergy status to other drugs, medicaments and biological substances; Z91.09 Other allergy status, other than to drugs and biological substances; Z86.14 Personal history of Methicillin resistant Staphylococcus aureus infection
CPT/HCPCS: 64493; 64494; J3301; Q9967

== ENCOUNTER → 2019-03-04 | Outpatient (CLI) | payer BC ==
[~2019-03-04] MED LIST changes: -BUPIVACAINE HCL 0.25% 30 ML VIAL As Ordered ONE; -ISOVUE-M 300 61% 15ML VIAL (Q9967) As Ordered ONE; -LIDOCAINE 1% SDV INJ 30 ML VIAL As Ordered ONE; -TRIAMCINOLONE ACETONIDE SUSP 40 MG/ML VIAL (J3301) As Ordered ONE; -diazePAM 5 MG TAB As Ordered ONE; -oxyCODONE 5MG TAB As Ordered ONE
== END ==
LOC: M PAIN 14:30
PROVIDERS: ATTEND Anesthesiology
DX: M47.816 Spondylosis without myelopathy or radiculopathy, lumbar region (principal); M47.817 Spondylosis without myelopathy or radiculopathy, lumbosacral region; Z53.29 Procedure and treatment not carried out because of patient's decision for other reasons

== ENCOUNTER → 2019-03-28 | Outpatient (CLI) | payer BC ==
--- NOTE | 2019-03-31 08:51 | REP ---
MRI thoracic spine without contrast: History: Spinal column stimulator trial. Spondylosis. Back, hip, and leg pain for 6-7 years. Comparison MRI study is from July 20, 2018. Technique: Sagittal and axial T1 and T2-weighted scans are acquired in the usual fashion with and without fat saturation. Sequences include spin echo, turbo spin-echo, and STIR imaging sequences. MRI findings: Previously noted 1.8 mm T4-5 tiny syrinx cavity is barely visible on today's images. It is felt to be unchanged. There is focal anterior displacement of the thoracic cord at the T6-7 level. This is quite mild and unchanged from the study done July 20, 2018 compatible with a small subarachnoid cyst at this level. No other intradural lesion is seen. Thoracic cord is normal in coarse caliber and signal intensity otherwise. The tip of the conus medullaris is normal in position and appearance at T12-L1. Thoracic vertebral body heights are preserved. There is a Schmorl's node at the superior endplate of the T6 vertebral body. Anterior discogenic spurring is seen in the lower thoracic spine. Lower cervical spine fusion hardware artifact is seen. No thoracic disc herniation or other cord compressive lesion is seen. Impression: Tiny syrinx previously observed is the is again visualized although less conspicuous at the T4-5 level. Very slight anterior displacement of the spinal cord is again seen at the T6-7 level likely secondary to a small arachnoid cyst. This is unchanged. Mild degenerative spondylosis changes. Otherwise negative. Electronically Signed by Nikko Swanson MD 03/31/2019 10:25 A
== END ==
LOC: M PLARAD 15:51
PROVIDERS: ATTEND Anesthesiology
DX: M43.16 Spondylolisthesis, lumbar region (principal)

== ENCOUNTER → 2019-04-02 | Outpatient (CLI) | payer BC ==
--- NOTE | 2019-04-08 23:37 | ECWPNPC ---
PATIENT NAME: ZULAY GARRETT : 1965 GENDER: FEMALE VISIT DATE: 04/02/2019 DISCHARGE DATE: 04/02/19 1706 VISIT LOCKED DATE TIME: PHYSICIAN: RAMSES LANDIN MD RESOURCE: RAMSES LANDIN MD REASON FOR APPOINTMENT 1. LOW BACK- DCS/ POST [facility]. REVIEW MRI HISTORY OF PRESENT ILLNESS GENERAL: 54 YEAR OLD FEMALE PATIENT WITH A HISTORY OF CHRONIC LOW BACK AND LEG PAIN. THE PATIENT DESCRIBES THE PAIN ACHING, TENDER, STABBING, AND CONTINUOUS WITH A PAIN SCORE OF 7-10/10 DEPENDING ON PHYSICAL ACTIVITY. THE PATIENT SAYS THAT SHE HAS HAD THIS PAIN FOR MANY YEARS AND IT HAS WORSENED OVER TIME. THE PATIENT SAYS HER PAIN STARTS IN HER LOW BACK AND RADIATES INTO HER HIPS AND DOWN BOTH LEGS WITH SOME OCCASIONAL NUMBNESS. THE PATIENT HAS TRIED MEDICATIONS AND SEVERAL INJECTIONS, BUT SAYS THEY HAVE ONLY GIVEN HER RELIEF FOR A SHORT AMOUNT OF TIME. THE PATIENT SAYS SHE IS INTERESTED IN A DCS TRIAL. PATIENT DENIES UNEXPLAINABLE WEIGHT LOSS, FEVER, CHILLS, NEW CHANGES ON HER URINARY OR BOWEL CONTROL. CURRENT MEDICATIONS TAKING ACCU-CHEK JUAN JOSE TEST STRIP 1 SUBCUTANEOUSLY 2-3 TIMES DAILY E11.9 TAKING LANCETS FOR ONE TOUCH ULTRA 2 DEVICE MISCELLANEOUS DIRECTED SC DX : 250.02/ THREE TIMES DAILY TAKING ASPIRIN 81 MG TABLET CHEWABLE 1 TABLET ORALLY ONCE A DAY, NOTES: 02/18/19 TAKING SIMVASTATIN 20 MG TABLET 1 TABLET IN THE EVENING ORALLY ONCE A DAY, NOTES: 02/18/19 TAKING DRISDOL 39021 UNIT CAPSULE 1 CAPSULE ORALLY WEEKLY, NOTES: LAST SUNDAY TAKING DULCOLAX 5 MG TABLET DELAYED RELEASE 1 TABLET NEEDED ORALLY ONCE A DAY, NOTES: NONE LATELY TAKING GLUCOMETER DIRECTED E11.9 DAILY TAKING LANCET DEVICE - MISCELLANEOUS DIRECTED E 11.9 THREE TIMES DAILY TAKING ONE TOUCH ULTRA BLUE STRIPS DIRECTED SUBCUTANEOUSLY E11.9, THREE TIMES DAILY TAKING GLYBURIDE 5MG TABLET 2 TABLET ORALLY TWICE A DAY, NOTES: 02/19/19 AM TAKING PEN NEEDLES 31G X 6 MM MISCELLANEOUS DIRECTED E11.9 BEFORE BEDTIME TAKING LANTUS SOLOSTAR 100 UNIT/ML SOLUTION PEN-INJECTOR 29 UNITS SUBCUTANEOUS BEFORE BEDTIME NOT-TAKING CYMBALTA 20 MG CAPSULE DELAYED RELEASE PARTICLES 1 CAPSULE ORALLY FOR PAIN ONCE A DAY MDD1, NOTES: NOT TAKING DUE TO SEVERE HEADACHES MEDICATION LIST REVIEWED AND RECONCILED WITH THE PATIENT PAST MEDICAL HISTORY OBESITY, MORBID, D/T EXCESS CALORIES HEPATOMEGALY 07/[address], 08/27 LIVER US WITH DIFFUSE FATTY INFILTRATION, NONALCOHOLIC MILD GASTROPARESIS NM 07/27 MRI LSPINE 01/25 - SM L PARACENTRAL DISC PROTRUSION AT L1-2 WITH MINIMAL THECAL SAC COMPRESSION, DIFFUSE DISC BULGE AT L4-5 WITH MINIMAL THECAL SAC COMPRESSION - DR JOHNSON H/O MRSA 07/24 EKG 06/23 - NL DM2 WITH H/O GESTATION DIABETES WITH GASTROPARESIS, PRODUCT MARKETING SPECIALIST INSULIN USE NONCOMPLIANCE, MOSTLY DUE TO INABILITY TO PAY DEPRESSION 04/28 CT CHEST WITH PULM NODULES, FOLLOWS WITH PULM 03/28 COLONOSCOPY, REINDL, REPEAT IN 2 YEARS SUBOPTIMAL PREP CLEMENCIA DEP CHRONIC PAIN, L SPINE, L ANKLE, L HIP VIT D DEF CHRONIC CONSTIPATION 12/01 CT CHEST - STABLE NODULES, NO FUTHER IMAGING REQUIRED ALLERGIES AMITIZA: ANAPHYLAXIS - ALLERGY ETHYL ALCOHOL: RASH, SOB - ALLERGY METFORMIN HCL: DYSPNEA, NAUSEA - ALLERGY CYMBALTA: SEVERE HEADACHES - SIDE EFFECTS SURGICAL HISTORY HYSTERECTOMY PARTIAL AND FULL 1992 CHOLECYSTECTOMY LEFT ANKLE REPAIR CERVICAL SPINE REPAIR X4 FAMILY HISTORY MOTHER: 69 YRS, DIAGNOSED WITH OTHER DAUGHTER(S): 29 YRS, DGT PASSED 29 - DM1, HEART DISEASE, DIABETES 5 BROTHER(S) , 10 SISTER(S) - HEALTHY. 1DAUGHTER(S) . MOTHER- KIDNEY STONE 3 DAYS LATER\\NDAUGHTER- DIABETIC, LUPUS ( AT 29)\\N DID NOT KNOW FATHER. SOCIAL HISTORY GENERAL: TOBACCO USE ARE YOU A:CURRENT SMOKER HOW OFTEN DO YOU SMOKE CIGARETTES?EVERY DAY HOW MANY CIGARETTES A DAY DO YOU SMOKE?11-20 ARE YOU INTERESTED IN QUITTING?NOT READY TO QUIT PATIENT COUNSELED ON THE DANGERS OF TOBACCO USE AND URGED TO QUIT:01/17/2019 COUNSELED THE PATIENT ON SMOKING EFFECTS, EDUCATION [id number]/08/2019 OTHERS AT HOME: SPOUSE. EDUCATION LEVEL OF EDUCATION:NOT FINISHED HIGH SCHOOL 10TH GRADE DIET: CONSISTENT CARBOHYDRATE. LANGUAGE LANGUAGES SPOKEN:TELUGU DOMESTIC VIOLENCE DO YOU FEEL SAFE IN YOUR ENVIRONMENT?YES RECREATIONAL DRUG USE DRUG USE?NO EXERCISE: NONE. LEARNING BARRIERS / SPECIAL NEEDS BARRIERS TO LEARNING?NO HEARING IMPAIRED?NO VISION IMPAIRED?YES COGNITIVELY IMPAIRED?NO :CORRECTIVE LENSES READINESS TO LEARN?YES LEARNING PREFERENCES?NO LEARNING CAPABILITIES PRESENT?YES EMOTIONAL BARRIERS?NO SPECIAL DEVICES?NO EXTRA GANG SUPERVISOR NEEDED?NO PAIN CLINIC PFS, CLERGY, PUBLIC HEALTH REFERRALS PFS REFERRAL NEEDED?NO CLERGY REFERRAL NEEDED?NO PUBLIC HEALTH REFERRAL NEEDED?NO WAS THE PROVIDER NOTIFIED OF ANY PERTINENT INFO? N/A HAS THE PATIENT BEEN EDUCATED REGARDING HIS/HER PLAN OF CARE?YES HAS THE PATIENT BEEN EDUCATED REGARDING PAIN, THE RISK FOR PAIN, THE IMPORTANCE OF EFFECTIVE PAIN MANAGEMENT, AND THE PAIN ASSESSMENT PROCESS?YES LATEX QUESTIONNAIRE LATEX ALLERGY : HAVE YOU EVER DEVELOPED ANY TYPE OF REACTION AFTER HANDLING LATEX PRODUCTS SUCH RUBBER GLOVES, CONDOMS, DIAPHRAGMS, BALLOONS, SOCKS, OR UNDERWEAR?NO LATEX ALLERGY : HAVE YOU EVER DEVELOPED ANY TYPE OF REACTION DURING OR AFTER DENTAL APPOINTMENT, VAGINAL/RECTAL EXAMINATION, SURGICAL PROCEDURE, OR ANY OTHER EXPOSURE?NO DATE ASKED : 01/17/2019 LATEX RISK : HAVE YOU EVER HAD ANY DIFFICULTY BREATHING OR HIVES AFTER EATING OR HANDLING ANY FRUITS, OR VEGETABLES; SUCH KIWI, BANANAS, STONE FRUITS, OR CHESTNUTSNO LATEX RISK : DO YOU HAVE A PREVIOUS PERSONAL HISTORY OF MORE THAN NINE SURGERIES, SPINA BIFIDA, OR REPEATED CATHERTIZATIONS? YES - PLEASE INDICATE : > 9 SURGERIES LATEX RISK : ARE YOU FREQUENTLY EXPOSED TO LATEX PRODUCTS IN YOUR OCCUPATION?NO CAFFEINE CAFFEINE USE?YES HOW OFTEN AND HOW MUCH? 2 CUPS COFFEE/DAY ADVANCE DIRECTIVE ADVANCE DIRECTIVE DISCUSSED WITH PATIENT:YES PATIENT DECLINES HCP INFORMATION. SHINTO [id number] [facility] MARITAL STATUS: . ALCOHOL SCREENING DID YOU HAVE A DRINK CONTAINING ALCOHOL IN THE PAST YEAR?NO POINTS0 INTERPRETATIONNEGATIVE OCCUPATION: NOT WORKING. REVIEWED WITH PT 09/13/18 1330 LAS11/07/18 REVIEWED WITH PT. ADREVIEWED WITH PT 11/12/18 1034 BVREVIEWED WITH PATIENT 01/17/19 1428 JS. 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 VITAL SIGNS WT 230.6 LBS, HT 64.5 IN, BMI 38.97 INDEX, BP 123/77 MM HG, HR 115 /MIN, RR 18 /MIN, TEMP 96.4 F, OXYGEN SAT % 97%, REVIEWED BY: SC 14:50 LS. EXAMINATION GENERAL: PATIENT IS ALERT O X 3 AND COOPERATIVE. ANTALGIC GAIT. TENDERNESS IN THE LOW BACK AREA IN THE PARASPINAL MUSCLE GROUP. WEAKNESS IN BOTH LEGS AT EXTENSION AND FLEXION. MRI OF THE LUMBAR SPINE DONE ON 11/20/2016 IS SHOWING BULGING DISCS AND FACET ARTHROPATHY CHANGES. MRI OF THE THORACIC SPINE DONE ON 03/28/2019 IS SHOWING A SMALL ARACHNOID CYST. ASSESSMENTS INTERVERTEBRAL DISC DISORDER WITH RADICULOPATHY OF LUMBAR REGION - M51.16 (PRIMARY) TREATMENT INTERVERTEBRAL DISC DISORDER WITH RADICULOPATHY OF LUMBAR REGION CLINICAL NOTES: WE DISCUSSED SEVERAL ISSUES WITH MRS. GARRETT'S PAIN MANAGEMENT CASE. I REVIEWED THE PSYCHOLOGICAL EVALUATION. THE PATIENT IS A GOOD CANDIDATE FOR A SCS FROM THE PSYCHOLOGICAL POINT OF VIEW. THE PATIENT'S LUMBAR AND THORACIC MRIS SHOW ADEQUATE ROOM FOR THE CABLES TO PASS THROUGH. SINCE THE PATIENT HAS NOT HAD PRODUCT MARKETING SPECIALIST PAIN RELIEF WITH MEDICATIONS OR INJECTION THERAPY, SHE IS INTERESTED IN A DCS TRIAL. WE DISCUSSED THE BENEFITS, RISKS, AND ALTERNATIVES OF THE TRIAL AND THE PATIENT WOULD LIKE TO PROCEED. WE WILL PLAN TO DO THE TRIAL ON May AND THE LEAD PULLS ON May. I WILL REQUEST AUTHORIZATION FROM THE PATIENTS INSURANCE TO MOVE FORWARD WITH THE SCS TRIAL. THE PATIENT WILL NEED A CLEARANCE FROM HER PRIMARY CARE PHYSICIAN PRIOR TO THE TRIAL. THE PATIENT WILL FOLLOW UP IN A FEW WEEKS TO DO PRE-OPERATIVE PAPERWORK. INSTRUCTIONS WERE GIVEN, QUESTIONS WERE ANSWERED, PATIENT REPORTS UNDERSTANDING AND AGREES WITH THE PLAN. I, JOHNNY MARLOW, DOCUMENTED THE ABOVE INFORMATION ACTING A SCRIBE FOR DR. LANDIN. I HAVE REVIEWED THE ABOVE DOCUMENT, WRITTEN BY JOHNNY CARLSONIBChandan AND I VERIFY THAT IT IS ACCURATE. . PROCEDURE CODES FA211 ESTABILISHED PATIENT [facility] FACILITY CHARGE G8427 CURRENT MEDS W/DOSAGES DOCUMENTED G8730 PAIN ASSESS POS TOOL F/U PLAN DOC DISPOSITION & COMMUNICATION FOLLOW UP 3 WEEKS ELECTRONICALLY SIGNED BY RAMSES LANDIN MD, MD ON 04/08/2019 AT 10:49 AM EDT DISCLAIMER : THIS IS A VISIT SUMMARY EXTRACTED FROM THE [employer] CHART. IT IS NOT A COPY OF THE [employer] PROGRESS NOTE. MTDD
== END ==
LOC: M PAIN 15:15
PROVIDERS: ATTEND Anesthesiology
DX: M51.16 Intervertebral disc disorders with radiculopathy, lumbar region (principal); G89.29 Other chronic pain; Z86.14 Personal history of Methicillin resistant Staphylococcus aureus infection; E11.43 Type 2 diabetes mellitus with diabetic autonomic (poly)neuropathy; Z86.59 Personal history of other mental and behavioral disorders; E55.9 Vitamin D deficiency, unspecified; F17.210 Nicotine dependence, cigarettes, uncomplicated; Z88.8 Allergy status to other drugs, medicaments and biological substances; Z79.82 Long term (current) use of aspirin; Z79.4 Long term (current) use of insulin; Z79.899 Other long term (current) drug therapy

== ENCOUNTER → 2019-05-13 | Outpatient (CLI) | payer BC ==
[~2019-05-13] MED LIST changes: +GLYB5TA PO; +LANTINJ4 SC; +MUPI30CR; +VITA500038 PO
--- NOTE | 2019-05-21 00:49 | ECWPNPC ---
PATIENT NAME: ZULAY GARRETT : 1965 GENDER: FEMALE VISIT DATE: 05/13/2019 DISCHARGE DATE: 05/13/19 1632 VISIT LOCKED DATE TIME: PHYSICIAN: RAMSES LANDIN MD RESOURCE: RAMSES LANDIN MD REASON FOR APPOINTMENT 1. PRE DCS TRIAL HISTORY OF PRESENT ILLNESS HISTORY OF PRESENT ILLNESS: PAIN THE PATIENT DESCRIBES THE PAIN... 54 YEAR OLD FEMALE PATIENT WITH A HISTORY OF CHRONIC LOW BACK PAIN. THE PATIENT DESCRIBES THE PAIN ACHING, SORE, AND CONTINUOUS WITH A PAIN SCORE OF 7-10/10 DEPENDING ON PHYSICAL ACTIVITY. THE PATIENT SAYS HER PAIN STARTS IN HER LOW BACK AND RADIATES DOWN BOTH LEGS, BUT HER LEFT LEG IS WORSE. THE PATIENT HAS TRIED INJECTION THERAPY AND MEDICATION MANAGEMENT, BUT SAYS THAT NOTHING HAS HELPED HER PAIN SO SHE IS INTERESTED IN A DCS TRIAL. PATIENT DENIES UNEXPLAINABLE WEIGHT LOSS, FEVER, CHILLS, NEW CHANGES ON HER URINARY OR BOWEL CONTROL. FALL RISK SCREENING: SCREENING :NO FALLS REPORTED IN THE LAST YEAR CURRENT MEDICATIONS TAKING GLYBURIDE 5MG TABLET 2 TABLET ORALLY TWICE A DAY, NOTES: 02/19/19 AM TAKING ACCU-CHEK JUAN JOSE TEST STRIP 1 SUBCUTANEOUSLY 2-3 TIMES DAILY E11.9 TAKING LANCETS FOR ONE TOUCH ULTRA 2 DEVICE MISCELLANEOUS DIRECTED SC DX : 250.02/ THREE TIMES DAILY TAKING ASPIRIN 81 MG TABLET CHEWABLE 1 TABLET ORALLY ONCE A DAY, NOTES: 02/18/19 TAKING SIMVASTATIN 20 MG TABLET 1 TABLET IN THE EVENING ORALLY ONCE A DAY, NOTES: 02/18/19 TAKING DRISDOL 27134 UNIT CAPSULE 1 CAPSULE ORALLY WEEKLY, NOTES: LAST SUNDAY TAKING DULCOLAX 5 MG TABLET DELAYED RELEASE 1 TABLET NEEDED ORALLY ONCE A DAY, NOTES: NONE LATELY TAKING GLUCOMETER DIRECTED E11.9 DAILY TAKING LANCET DEVICE - MISCELLANEOUS DIRECTED E 11.9 THREE TIMES DAILY TAKING ONE TOUCH ULTRA BLUE STRIPS DIRECTED SUBCUTANEOUSLY E11.9, THREE TIMES DAILY TAKING PEN NEEDLES 31G X 6 MM MISCELLANEOUS DIRECTED E11.9 BEFORE BEDTIME TAKING LANTUS SOLOSTAR 100 UNIT/ML SOLUTION PEN-INJECTOR 29 UNITS SUBCUTANEOUS BEFORE BEDTIME DISCONTINUED CYMBALTA 20 MG CAPSULE DELAYED RELEASE PARTICLES 1 CAPSULE ORALLY FOR PAIN ONCE A DAY MDD1, NOTES: NOT TAKING DUE TO SEVERE HEADACHES MEDICATION LIST REVIEWED AND RECONCILED WITH THE PATIENT PAST MEDICAL HISTORY OBESITY, MORBID, D/T EXCESS CALORIES HEPATOMEGALY 07/[address], 08/27 LIVER US WITH DIFFUSE FATTY INFILTRATION, NONALCOHOLIC MILD GASTROPARESIS NM 07/27 MRI LSPINE 01/25 - SM L PARACENTRAL DISC PROTRUSION AT L1-2 WITH MINIMAL THECAL SAC COMPRESSION, DIFFUSE DISC BULGE AT L4-5 WITH MINIMAL THECAL SAC COMPRESSION - DR JOHNSON H/O MRSA 07/24 EKG 06/23 - NL DM2 WITH H/O GESTATION DIABETES WITH GASTROPARESIS, [facility] INSULIN USE NONCOMPLIANCE, MOSTLY DUE TO INABILITY TO PAY DEPRESSION 04/28 CT CHEST WITH PULM NODULES, FOLLOWS WITH PULM 03/28 COLONOSCOPY, REINDL, REPEAT IN 2 YEARS SUBOPTIMAL PREP CLEMENCIA DEP CHRONIC PAIN, L SPINE, L ANKLE, L HIP VIT D DEF CHRONIC CONSTIPATION 12/01 CT CHEST - STABLE NODULES, NO FUTHER IMAGING REQUIRED ALLERGIES AMITIZA: ANAPHYLAXIS - ALLERGY ETHYL ALCOHOL: RASH, SOB - ALLERGY METFORMIN HCL: DYSPNEA, NAUSEA - ALLERGY CYMBALTA: SEVERE HEADACHES - SIDE EFFECTS SURGICAL HISTORY HYSTERECTOMY PARTIAL AND FULL 1992 CHOLECYSTECTOMY LEFT ANKLE REPAIR CERVICAL SPINE REPAIR X4 FAMILY HISTORY MOTHER: 69 YRS, DIAGNOSED WITH OTHER DAUGHTER(S): 29 YRS, DGT PASSED 29 - DM1, HEART DISEASE, DIABETES 5 BROTHER(S) , 10 SISTER(S) - HEALTHY. 1DAUGHTER(S) . MOTHER- KIDNEY STONE 3 DAYS LATER\\NDAUGHTER- DIABETIC, LUPUS ( AT 29)\\N DID NOT KNOW FATHER. SOCIAL HISTORY GENERAL: TOBACCO USE ARE YOU A:CURRENT SMOKER ARE YOU INTERESTED IN QUITTING?THINKING ABOUT QUITTING HOW MANY CIGARETTES A DAY DO YOU SMOKE?11-20 HOW OFTEN DO YOU SMOKE CIGARETTES?EVERY DAY PATIENT COUNSELED ON THE DANGERS OF TOBACCO USE AND URGED TO QUIT:05/13/2019 OTHERS AT HOME: SPOUSE. EDUCATION LEVEL OF EDUCATION:NOT FINISHED HIGH SCHOOL 10TH GRADE DIET: CONSISTENT CARBOHYDRATE. LANGUAGE LANGUAGES SPOKEN:TURKMEN DOMESTIC VIOLENCE DO YOU FEEL SAFE IN YOUR ENVIRONMENT?YES RECREATIONAL DRUG USE DRUG USE?NO EXERCISE: NONE. LEARNING BARRIERS / SPECIAL NEEDS BARRIERS TO LEARNING?NO HEARING IMPAIRED?NO VISION IMPAIRED?YES COGNITIVELY IMPAIRED?NO :CORRECTIVE LENSES READINESS TO LEARN?YES LEARNING PREFERENCES?NO LEARNING CAPABILITIES PRESENT?YES EMOTIONAL BARRIERS?NO SPECIAL DEVICES?NO NECK BAND MAKER NEEDED?NO LUNG CANCER SCREENING SMOKING STATUS:CURRENT SMOKER PAIN CLINIC PFS, CLERGY, PUBLIC HEALTH REFERRALS PFS REFERRAL NEEDED?NO CLERGY REFERRAL NEEDED?NO PUBLIC HEALTH REFERRAL NEEDED?NO WAS THE PROVIDER NOTIFIED OF ANY PERTINENT INFO? N/A HAS THE PATIENT BEEN EDUCATED REGARDING HIS/HER PLAN OF CARE?YES HAS THE PATIENT BEEN EDUCATED REGARDING PAIN, THE RISK FOR PAIN, THE IMPORTANCE OF EFFECTIVE PAIN MANAGEMENT, AND THE PAIN ASSESSMENT PROCESS?YES LATEX QUESTIONNAIRE LATEX ALLERGY : HAVE YOU EVER DEVELOPED ANY TYPE OF REACTION AFTER HANDLING LATEX PRODUCTS SUCH RUBBER GLOVES, CONDOMS, DIAPHRAGMS, BALLOONS, SOCKS, OR UNDERWEAR?NO LATEX ALLERGY : HAVE YOU EVER DEVELOPED ANY TYPE OF REACTION DURING OR AFTER DENTAL APPOINTMENT, VAGINAL/RECTAL EXAMINATION, SURGICAL PROCEDURE, OR ANY OTHER EXPOSURE?NO LATEX RISK : HAVE YOU EVER HAD ANY DIFFICULTY BREATHING OR HIVES AFTER EATING OR HANDLING ANY FRUITS, OR VEGETABLES; SUCH KIWI, BANANAS, STONE FRUITS, OR CHESTNUTSNO LATEX RISK : DO YOU HAVE A PREVIOUS PERSONAL HISTORY OF MORE THAN NINE SURGERIES, SPINA BIFIDA, OR REPEATED CATHERIZATIONS? YES - PLEASE INDICATE : > 9 SURGERIES LATEX RISK : ARE YOU FREQUENTLY EXPOSED TO LATEX PRODUCTS IN YOUR OCCUPATION?NO DATE ASKED : 05/13/2019 CAFFEINE CAFFEINE USE?YES HOW OFTEN AND HOW MUCH? 2 CUPS COFFEE/DAY ADVANCE DIRECTIVE ADVANCE DIRECTIVE DISCUSSED WITH PATIENT:YES PATIENT DECLINES HCP INFORMATION. CAODAISM [id number] YAZIDISM MARITAL STATUS: . ALCOHOL SCREENING DID YOU HAVE A DRINK CONTAINING ALCOHOL IN THE PAST YEAR?NO POINTS0 INTERPRETATIONNEGATIVE OCCUPATION: NOT WORKING. REVIEWED WITH PT 09/13/18 1330 LAS11/07/18 REVIEWED WITH PT. ADREVIEWED WITH PT 11/12/18 1034 BVREVIEWED WITH PATIENT 01/17/19 1428 JS. 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 CONSTITUTIONAL: ANY CHANGE IN YOUR MEDICAL CONDITION? NO . CHILLS NO . FEVER NO . INFECTION: DO YOU HAVE NEW INFECTIONS? NO . DO YOU HAVE HISTORY OF MRSA? YES . MUSCULOSKELETAL: ANY NEW PATTERNS OF PAIN OR NUMBNESS? YES . GASTROENTEROLOGY: ANY NEW CHANGE IN BOWEL CONTROL? NO . GENITOURINARY: ANY NEW CHANGE IN BLADDER CONTROL? NO . IS THERE A CHANCE YOU COULD BE ? NO . HEMATOLOGY/LYMPH: DO YOU TAKE ANY BLOOD THINNERS? (FOR EXAMPLE- COUMADIN, PLAVIX, AGGRENOX, PLATEL, PRADAXA, OR XARELTO) NO . WHEN WAS YOUR LAST DOSE? DATE: TIME: . NEUROLOGY: HAVE YOU FALLEN IN THE PAST 12 MONTHS? NO . ANY NEW EXTREMITY NUMBNESS OR WEAKNESS? NO . CARDIOLOGY: DO YOU HAVE A PACEMAKER OR DEFIBRILLATOR? NO . RESPIRATORY: HAVE YOU BEEN SICK IN THE PAST WEEK? NO . FEVER NO . FLU LIKE SYMPTOMS? NO . COUGH NO . INTEGUMENTARY: DO YOU HAVE ANY RASHES OR OPEN SORES? NO . ALLERGIC/IMMUNO: ARE YOU ALLERGIC TO IV DYE? NO . ANY NEW ALLERGIES? NO . PSYCHIATRIC: DO YOU HAVE THOUGHTS OF HURTING YOURSELF OR SOMEONE ELSE? NO . ARE YOU ABUSED, NEGLECTED, OR IN AN UNSAFE ENVIRONMENT? NO . ENDOCRINOLOGY: ARE YOU DIABETIC? NO . OTHER: DO YOU NEED ANY PRESCRIPTIONS? NO . IF YES, PLEASE LIST: ____ . ANY NEW PROBLEMS WITH YOUR MEDICATIONS? NO . WHEN DID YOU LAST EAT? ____ . WHEN DID YOU LAST DRINK? ____ . WHAT DID YOU LAST DRINK? ____ . NAME OF PERSON DRIVING YOU HOME? ____ . DO YOU HAVE ANY OTHER QUESTIONS OR CONCERNS NO . VITAL SIGNS WT 230.6 LBS, HT 64.5 IN, BMI 38.97 INDEX, BP 143/77 MM HG, HR 96 /MIN, RR 18 /MIN, TEMP 96.2 F, OXYGEN SAT % 94%, SAFE IN ENV? (Y/N) YES, NA INITIALS AW 1507, REVIEWED BY: JONATHAN. EXAMINATION GENERAL EXAMINATION: PATIENT IS ALERT O X 3 AND COOPERATIVE. LUNGS CLEAR, TO AUSCULTATION. HEART: NO MURMURS OR GALLOPS; FACIAL CRANIAL NERVES ARE GROSSLY NORMAL. GOOD SYMMETRY OF FACIAL MUSCLE MOVEMENT. NORMAL VISUAL CHOI. ANTALGIC GAIT. LEFT LEG IS WEAKER AT EXTENSION AND FLEXION. STRAIGHT LEG RAISE OF THE LEFT LEG IS POSITIVE AT 40 DEGREES FOR RADICULOPATHY. MRI OF THE LUMBAR SPINE DONE ON 11/20/2016 IS SHOWING BULGING DISCS AT MULTIPLE LEVELS AND ADEQUATE SPACE FOR THE CABLES TO PASS THROUGH. MRI OF THE THORACIC SPINE DONE ON 03/28/2019 IS SHOWING BULGING DISCS, A TINY SYRINX AT T4-T5, AND ADEQUATE SPACE FOR THE CABLES TO PASS THROUGH. ASSESSMENTS INTERVERTEBRAL DISC DISORDER WITH RADICULOPATHY OF LUMBAR REGION - M51.16 (PRIMARY) HISTORY OF MRSA INFECTION - Z86.14 TREATMENT INTERVERTEBRAL DISC DISORDER WITH RADICULOPATHY OF LUMBAR REGION CLINICAL NOTES: WE DISCUSSED SEVERAL ISSUES WITH MRS. GARRETT'S PAIN MANAGEMENT CASE. THE PATIENT IS INTERESTED IN A DCS TRIAL ON May. WE DISCUSSED THE BENEFITS, RISKS, AND ALTERNATIVES OF THE TRIAL AND THE PATIENT WOULD LIKE TO PROCEED. I WOULD LIKE TO DISCUSS THE PATIENT'S MRIS WITH RADIOLOGY PRIOR TO THE TRIAL. THE PATIENT WILL STOP USING ASPIRIN 2 WEEKS BEFORE THE TRIAL. I WOULD LIKE THE PATIENT TO USE HIBICLENS SOAP AND BACTROBAN NASAL FOR 1 WEEK PRIOR TO THE TRIAL DUE TO THE PATIENT'S HISTORY OF MRSA. THE PATIENT WILL FOLLOW UP ON May FOR LEAD PULLS. INSTRUCTIONS WERE GIVEN, QUESTIONS WERE ANSWERED, PATIENT REPORTS UNDERSTANDING AND AGREES WITH THE PLAN. I, JOHNNY MARLOW, DOCUMENTED THE ABOVE INFORMATION ACTING A SCRIBE FOR DR. LANDIN. I HAVE REVIEWED THE ABOVE DOCUMENT, WRITTEN BY JOHNNY CARLSONIBChandan AND I VERIFY THAT IT IS ACCURATE. . OTHERS START MUPIROCIN CALCIUM CREAM, 2 %, 1 APPLICATION TO AFFECTED AREA, EXTERNALLY, THREE TIMES A DAY, 10 DAY(S), 30 START DOXYCYCLINE HYCLATE TABLET, 50 MG, 1 TABLET, ORALLY, EVERY 12 HRS, 10 DAY(S), 20 PROCEDURE CODES FA211 ESTABILISHED PATIENT [facility] FACILITY CHARGE G8427 CURRENT MEDS W/DOSAGES DOCUMENTED G8730 PAIN ASSESS POS TOOL F/U PLAN DOC DISPOSITION & COMMUNICATION FOLLOW UP 3 WEEKS ELECTRONICALLY SIGNED BY RAMSES LANDIN MD, MD ON 05/20/2019 AT 03:38 PM EDT DISCLAIMER : THIS IS A VISIT SUMMARY EXTRACTED FROM THE [employer] CHART. IT IS NOT A COPY OF THE [employer] PROGRESS NOTE. MTDD
== END ==
LOC: M PAIN 15:30
PROVIDERS: ATTEND Anesthesiology
DX: M51.16 Intervertebral disc disorders with radiculopathy, lumbar region (principal); G89.29 Other chronic pain; Z86.14 Personal history of Methicillin resistant Staphylococcus aureus infection; E11.9 Type 2 diabetes mellitus without complications; Z86.59 Personal history of other mental and behavioral disorders; E55.9 Vitamin D deficiency, unspecified; F17.210 Nicotine dependence, cigarettes, uncomplicated; Z88.8 Allergy status to other drugs, medicaments and biological substances; Z91.09 Other allergy status, other than to drugs and biological substances; Z79.82 Long term (current) use of aspirin; Z79.4 Long term (current) use of insulin; Z79.899 Other long term (current) drug therapy

== ENCOUNTER → 2019-05-18 | Outpatient (REF) | payer BC ==
[2019-05-18 17:39] LABS: BASO # 0.1 10^3/uL (0.0-0.2); BASO % 0.6 % (0.0-1.0); EOS # 0.1 10^3/uL (0.0-0.50); EOS % 0.9 % (0.0-3.0); HEMATOCRIT 43.9 % (36.0-47.0); HEMOGLOBIN 14.5 g/dl (12.0-15.5); LYMPH # 2.3 10^3/uL (1.5-4.5); LYMPH % 26.4 % (24.0-44.0); MEAN CORPUSCULAR HEMOGLOBIN 31.7 pg (27.0-33.0); MEAN CORPUSCULAR VOLUME 96.1 fl (80.0-96.0); MONO # 0.6 10^3/uL (0.0-0.8); MONO % 7.1 % (0.0-5.0); NEUTROPHILS # 5.5 10^3/uL (1.8-7.7); NEUTROPHILS % 64.4 % (36.0-66.0); PLATELET COUNT, AUTOMATED 261 10^3/uL (150-450); RED BLOOD COUNT 4.57 10^6/uL (4.00-5.40); WHITE BLOOD COUNT 8.6 10^3/uL (4.0-10.0)
[2019-05-18 18:03] LABS: ALBUMIN 3.5 GM/DL (3.2-5.2); ALT/SGPT 27 U/L (12-78); BILIRUBIN,TOTAL 0.3 MG/DL (0.2-1.0); BLOOD UREA NITROGEN 13 MG/DL (7-18); CALCIUM LEVEL 8.8 MG/DL (8.5-10.1); CARBON DIOXIDE LEVEL 29 MEQ/L (21-32); CHLORIDE LEVEL 107 MEQ/L (98-107); CHOLESTEROL LEVEL 158 MG/DL (<200); CREATININE FOR GFR 0.66 MG/DL (0.55-1.30); GLOMERULAR FILTRATION RATE > 60.0 (>51); GLUCOSE, FASTING 148 MG/DL (70-100); HDL CHOLESTEROL 50 MG/DL (>40); LDL CHOLESTEROL 91 MG/DL (<100); NON-HDL-C 108 MG/DL; POTASSIUM SERUM 4.3 MEQ/L (3.5-5.1); SODIUM LEVEL 141 MEQ/L (136-145); TOTAL PROTEIN 6.6 GM/DL (6.4-8.2); TRIGLYCERIDES LEVEL 85 MG/DL (<150)
[2019-05-18 18:23] LABS: MALB URINE SIEMENS 7.6 MG/L; MAU/CREAT RATIO 6.8 MCG/MG (0.0-30.0)
[2019-05-18 18:26] LABS: HEMOGLOBIN A1c 8.6 %
[2019-05-19 11:27] LABS: TOTAL 25(OH) VITAMIN D 15.7 NG/ML (30.0-100.0)
== END ==
LOC: M SFHCADAM 09:25
PROVIDERS: ATTEND Physician Assistant Medical
DX: E11.43 Type 2 diabetes mellitus with diabetic autonomic (poly)neuropathy (principal); E55.9 Vitamin D deficiency, unspecified; K76.0 Fatty (change of) liver, not elsewhere classified

== ENCOUNTER 2019-05-26 07:58 | Day surgery (SDC) | payer BC ==
[~2019-05-26] VITALS: Ht 163.8 cm; Wt 104.8 kg
[2019-05-26] VITALS (7 sets, daily range): BP systolic 133–154; BP diastolic 75–94
[~2019-05-26 07:58] MED LIST changes: +LR 1,000 ML IV ONE; +MIDAZOLAM INJ 2 MG/2 ML VIAL (J2250) As Ordered ONE; +VANCOMYCIN HCL 1,000 MG, VIAL MATE ADAPTER 1 EACH in D5W 250 ML IV ONE; +fentaNYL 100 MCG/2 ML INJECTION (J3010) As Ordered ONE
[2019-05-26] MEDS ORDERED: LIDOCAINE W/EPINEPHRINE 1% 20ML VIAL As Ordered ONE (09:45)
[2019-05-26] MEDS ORDERED: PROPOFOL 200 MG/20 ML VIAL As Ordered ONE (10:17)
[2019-05-26] MEDS ORDERED: PERCOCET 5MG/325MG TAB As Ordered ONE (11:43)
[2019-05-26] MEDS ORDERED: MEPERIDINE INJ 25 MG/ML VIAL (J2175) IV PRN (12:15)
[2019-05-26] MEDS ORDERED: ONDANSETRON 4MG/2ML VIAL (J2405) IV PRN (12:15)
[2019-05-26] MEDS ORDERED: PERCOCET 5MG/325MG TAB PO PRN (12:15)
[2019-05-26] MEDS ORDERED: fentaNYL 100 MCG/2 ML INJECTION (J3010) IV PRN (12:15)
[2019-05-26] MEDS ORDERED: LR 1,000 ML IV SCH (12:15)
[2019-05-26] MEDS ORDERED: METOCLOPRAMIDE INJ 10MG/2ML VIAL (J2765) IV PRN (12:15)
--- NOTE | 2019-05-26 13:23 | REP ---
Partial thoracic spine series: Four views. History: Lumbar disc disorder with radiculopathy. 4 minutes 57 seconds of fluoroscopy time is reported. Findings: A sequence of four last image hold fluoroscopically obtained spot radiographs of the thoracic spine document dorsal column stimulator lead position. Electronically Signed by Nikko Swanson MD 05/26/2019 04:50 P
[2019-05-26] MEDS: NORCO, ANEXSIA 5/325MG TABLET (HYDROcodone/ACETAMINOPHEN) PO PRN ×2 (14:53→20:58)
[2019-05-26] MEDS ORDERED: GLUCAGON FOR INJ 1 MG VIAL (J1610) SC PRN (15:45)
[2019-05-26] MEDS ORDERED: DEXTROSE 50% 50 ML SYRINGE IV PRN (15:45)
[2019-05-26] MEDS ORDERED: GLUCOSE 4 GM CHEW TABLET PO PRN (15:45)
--- NOTE | 2019-05-26 16:39 | CR.PDOC ---
General Date of Consultation: May 26, 2019 Referring Provider: HUNG DOYLE MD Attending Physician: Osmel Salas MD Consultation REASON FOR CONSULTATION/CHIEF COMPLAINT: . Management of medical comorbidities HISTORY OF PRESENT ILLNESS: . 54-year-old female with past medical history of morbid obesity, diabetes mellitus, and chronic back pain was admitted under the pain management service following a dorsal column stimulator placement. At this time, she denies any complaints of fevers, chills, chest pain, palpitations, abdominal pain, or any nausea/vomiting/diarrhea. The hospitalist service was consulted to aid in the management of the patient's medical comorbidities. ALLERGIES: Please see below. HOME MEDICATIONS: Please see below. PAST MEDICAL HISTORY: As noted in HPI SOCIAL HISTORY: Patient is smoked a half a pack of tobacco a day for the past 30 years. Denies any alcohol or illicit drug use. REVIEW OF SYSTEMS: 10 point review of systems negative unless otherwise specified in HPI. PHYSICAL EXAMINATION: VITAL SIGNS: Please see below. GENERAL APPEARANCE: . Awake, alert, in no acute distress. Morbidly obese HEENT: . Normocephalic, atraumatic RESPIRATORY: . Clear to auscultation bilaterally CARDIOVASCULAR: . Normal rate, normal S1, S2 ABDOMEN: . Soft, nontender, nondistended EXTREMITIES: . No erythema, no tenderness LABORATORY DATA: Please see below. ASSESSMENT/PLAN: Chronic back pain status post dorsal column stimulator Pain management as per Dr. Guerra Diabetes Mellitus Insulin regimen as ordered Morbid obesity Complicating medical care Vital Signs/I&O Vital Signs Date Time Temp Pulse Resp B/P (MAP) Pulse Ox O2 Delivery O2 Flow Rate FiO2 05/26/19 15:45 98.2 86 18 136/77 (96) 96 Laboratory Data Labs 24H Laboratory Tests 2 05/26/19 08:34: Bedside Glucose (Misc Panel) 159H 05/26/19 11:35: Bedside Glucose (Misc Panel) 175H 05/26/19 12:24: Bedside Glucose (Misc Panel) 155H Allergies Coded Allergies: alcohol (Verified Allergy, Severe, rash, breathing issues, 05/26/19) metformin (Verified Allergy, Severe, breathing issues, 05/26/19) duloxetine (Verified Allergy, Intermediate, hives, headache, 05/26/19) lubiprostone (Verified Allergy, Intermediate, hives, 05/26/19) Home Medications Scheduled Cholecalciferol (Vitamin D3) (Vitamin D3) 5,000 Unit Tablet, 5,000 UNIT PO QWEEK, (Reported) Glyburide (Glyburide) 5 Mg Tablet, 10 MG PO BID, (Reported) Insulin Glargine,Hum.rec.anlog (Lantus Solostar) 100 Unit/1 Ml Insuln.pen, 29 UNITS SC QHS, (Reported) Mupirocin (Mupirocin) 30 Gm Cream..g., 0 NA TID, (Reported) HUNG DOYLE MD May 26, 2019 16:39
[2019-05-26] MEDS: VANCOMYCIN HCL 1,000 MG, VIAL MATE ADAPTER 1 EACH in D5W 250 ML IV SCH (17:28)
[2019-05-26] MEDS: HumaLOG INSULIN (NovoLOG) PER UNIT SC SCH (18:29)
[2019-05-26] MEDS ORDERED: LEVEMIR (INSULIN DETEMIR) 1 UNITS/0.01ML SC SCH (21:00)
[2019-05-26] MEDS ORDERED: HumaLOG INSULIN (NovoLOG) PER UNIT SC SCH (21:00)
[2019-05-27 00:57] VITALS: BP 112/59
[2019-05-27] MEDS: VANCOMYCIN HCL 1,000 MG, VIAL MATE ADAPTER 1 EACH in D5W 250 ML IV SCH (02:13)
[2019-05-27 04:40] VITALS: BP 128/69
[2019-05-27 07:05] LABS: HEMATOCRIT 42.8 % (36.0-47.0); MEAN CORPUSCULAR HEMOGLOBIN 30.8 pg (27.0-33.0); MEAN CORPUSCULAR HGB CONC 32.7 g/dl (32.0-36.5); MEAN CORPUSCULAR VOLUME 94.3 fl (80.0-96.0); PLATELET COUNT, AUTOMATED 252 10^3/uL (150-450); RED BLOOD COUNT 4.54 10^6/uL (4.00-5.40); WHITE BLOOD COUNT 8.4 10^3/uL (4.0-10.0)
[2019-05-27 07:30] LABS: BLOOD UREA NITROGEN 11 MG/DL (7-18); CALCIUM LEVEL 8.7 MG/DL (8.5-10.1); CARBON DIOXIDE LEVEL 29 MEQ/L (21-32); CHLORIDE LEVEL 105 MEQ/L (98-107); CREATININE FOR GFR 0.71 MG/DL (0.55-1.30); GLOMERULAR FILTRATION RATE > 60.0 (>51); GLUCOSE, FASTING 153 MG/DL (70-100); POTASSIUM SERUM 3.8 MEQ/L (3.5-5.1); SODIUM LEVEL 139 MEQ/L (136-145)
[2019-05-27] MEDS: HumaLOG INSULIN (NovoLOG) PER UNIT SC SCH (08:16)
--- NOTE | 2019-06-05 22:08 | ROPAIN ---
DATE OF PROCEDURE: 05/26/2019 PREOPERATIVE DIAGNOSIS: Lumbar disc disorder with radiculopathy. POSTOPERATIVE DIAGNOSIS: Lumbar disc disorder with radiculopathy. PROCEDURE: Spinal column stimulator trial. ANESTHESIA: Local with monitored anesthesia care. SURGEON: Dr. Guerra PREOPERATIVE NOTE: Ms. Wu is a 54-year-old female patient with recurrent low back and leg pain. She has tried multiple medications and interventions and therapy, but unfortunately her pain has persisted. Patient is in the operating room for a spinal column stimulator trial. Patient denies fevers, chills, changes in urinary, bowel control. PROCEDURE NOTE: The consent was reviewed with the patient. Patient was brought to the procedure room. She received vancomycin 1 gram intravenous (IV). Thoracolumbar area was cleaned with Betadine solution and draped aseptically. The procedure was done under sterile conditions. Under fluoroscopic guidance, the first target was selected at the interlaminar level of T12-L1. Lidocaine was used to numb the skin and the subcutaneous tissue below it. Epidural Tuohy needle 17 gauge was advanced until epidural space was reached 7 cm deep into the skin by the loss of resistance technique. Then a 16-contact lead from [employer] was advanced at the posterior and medial aspects of the epidural space until we reached the level of T6. A decision was made to place a second lead. This time the target was selected at the interlaminar level of L1-2. A second Tuohy needle was advanced, and by the loss of resistance technique the epidural space was reached 7 cm deep into the skin. A second 16-contact lead from [employer] was advanced through the second Tuohy needle and advanced parallel to the first one. The lead was advanced medial and posterior to the epidural space, again at the level of T6. After appropriate position of the leads was achieved, extension cables were attached to the leads, which were attached to the computer system of [employer]. I started to do programming. This was a simple program of 30 minutes, where I changed the position the leads, the contact use and the voltage. The final position of the leads was at T6, T7, and T8. The leads were placed parallel. Patient reported adequate stimulation and coverage of the back and leg pain. When patient was expressing that the area was covered, we removed the stylettes, removed the extensions, and attached the leads to the patient's skin with Steri-Strips. X-rays were done in the AP and lateral view for future reference. Again, the leads were at the positions of T6, T7, and T8. Patient was sent to the recovery room after the stylettes were removed. There were no complications during the procedure.
== END 2019-05-27 08:52 | disposition home or self-care (01) ==
LOC: M SDC 07:58 → M PED 13:23 → M SDC 05-27 08:52
PROVIDERS: ATTEND Family Medicine
DX: M51.16 Intervertebral disc disorders with radiculopathy, lumbar region (principal); E10.9 Type 1 diabetes mellitus without complications; Z79.4 Long term (current) use of insulin; Z79.899 Other long term (current) drug therapy; F32.9 Major depressive disorder, single episode, unspecified; J45.909 Unspecified asthma, uncomplicated; F17.210 Nicotine dependence, cigarettes, uncomplicated; R91.1 Solitary pulmonary nodule
CPT/HCPCS: 36415; 63650; 76000; 80048; 83735; 85027; 96365; 96366; C1778; J2250; J3010; J3370

== ENCOUNTER → 2019-05-29 | Outpatient (CLI) | payer BC ==
[~2019-05-29] MED LIST changes: -LR 1,000 ML IV ONE; -MIDAZOLAM INJ 2 MG/2 ML VIAL (J2250) As Ordered ONE; -VANCOMYCIN HCL 1,000 MG, VIAL MATE ADAPTER 1 EACH in D5W 250 ML IV ONE; -fentaNYL 100 MCG/2 ML INJECTION (J3010) As Ordered ONE
--- NOTE | 2019-05-29 17:22 | REP ---
Partial thoracic spine series: Two views. History: Dorsal column stimulator lead pole. 14 seconds of fluoroscopy time is reported. Findings: A sequence of two last image hold fluoroscopically obtained spot radiographs of the lower thoracic spine document dorsal column stimulator lead position. Electronically Signed by Nikko Swanson MD 05/29/2019 05:42 P
--- NOTE | 2019-06-04 00:12 | ECWPNPC ---
PATIENT NAME: ZULAY GARRETT : 1965 GENDER: FEMALE VISIT DATE: 05/29/2019 DISCHARGE DATE: 05/29/19 1429 VISIT LOCKED DATE TIME: PHYSICIAN: RAMSES LANDIN MD RESOURCE: RAMSES LANDIN MD REASON FOR APPOINTMENT 1. LEAD PULL HISTORY OF PRESENT ILLNESS HISTORY OF PRESENT ILLNESS: PAIN THE PATIENT DESCRIBES THE PAIN... 54 YEAR OLD FEMALE PATIENT WITH A HISTORY OF CHRONIC LOW BACK AND LEG PAIN. THE PATIENT DESCRIBES THE PAIN SORE, DAILY, AND CONTINUOUS WITH A PAIN SCORE OF 6-9/10 DEPENDING ON PHYSICAL ACTIVITY. THE PATIENT STATES HER PAIN BEGINS IN HER LOW BACK AND RADIATES DOWN HER LEGS. THE PATIENT HAD A DCS TRIAL PERFORMED ON 05/26/2019, WHICH SHE REPORTS RECEIVING OVER 80 PERCENT GOOD PAIN RELIEF AND INCREASE FUNCTIONALITY. THE PATIENT SAYS SHE IS VERY HAPPY WITH THE RESULTS FROM THE TRIAL. THE PATIENT STATES SHE WANTS TO MOVE FORWARD WITH THE DCS IMPLANT. PATIENT DENIES UNEXPLAINABLE WEIGHT LOSS, FEVER, CHILLS, NEW CHANGES ON HER URINARY OR BOWEL CONTROL. FALL RISK SCREENING: SCREENING :NO FALLS REPORTED IN THE LAST YEAR CURRENT MEDICATIONS TAKING GLYBURIDE 5MG TABLET 2 TABLET ORALLY TWICE A DAY TAKING LANCETS FOR ONE TOUCH ULTRA 2 DEVICE MISCELLANEOUS DIRECTED SC DX : E11.9 THREE TIMES DAILY TAKING ASPIRIN 81 MG TABLET CHEWABLE 1 TABLET ORALLY ONCE A DAY TAKING DULCOLAX 5 MG TABLET DELAYED RELEASE 1 TABLET NEEDED ORALLY ONCE A DAY TAKING GLUCOMETER DIRECTED E11.9 DAILY TAKING LANCET DEVICE - MISCELLANEOUS DIRECTED E 11.9 THREE TIMES DAILY TAKING ONE TOUCH ULTRA BLUE STRIPS DIRECTED SUBCUTANEOUSLY E11.9, THREE TIMES DAILY TAKING PEN NEEDLES 31G X 6 MM MISCELLANEOUS DIRECTED E11.9 BEFORE BEDTIME TAKING LANTUS SOLOSTAR 100 UNIT/ML SOLUTION PEN-INJECTOR 29 UNITS SUBCUTANEOUS BEFORE BEDTIME TAKING MUPIROCIN CALCIUM 2 % CREAM 1 APPLICATION TO AFFECTED AREA EXTERNALLY THREE TIMES A DAY TAKING DOXYCYCLINE HYCLATE 50 MG TABLET 1 TABLET ORALLY EVERY 12 HRS TAKING SIMVASTATIN 40 MG TABLET 1 TABLET IN THE EVENING ORALLY ONCE A DAY TAKING DRISDOL 73069 UNIT CAPSULE 1 CAPSULE ORALLY WEEKLY MEDICATION LIST REVIEWED AND RECONCILED WITH THE PATIENT PAST MEDICAL HISTORY OBESITY, MORBID, D/T EXCESS CALORIES HEPATOMEGALY 07/[address], 08/27 LIVER US WITH DIFFUSE FATTY INFILTRATION, NONALCOHOLIC MILD GASTROPARESIS NM 07/27 MRI LSPINE 01/25 - SM L PARACENTRAL DISC PROTRUSION AT L1-2 WITH MINIMAL THECAL SAC COMPRESSION, DIFFUSE DISC BULGE AT L4-5 WITH MINIMAL THECAL SAC COMPRESSION - DR JOHNSON H/O MRSA 07/24 EKG 06/23 - NL DM2 WITH H/O GESTATION DIABETES WITH GASTROPARESIS, MERCHANDISE FLOW TEAM LEADER INSULIN USE NONCOMPLIANCE, MOSTLY DUE TO INABILITY TO PAY DEPRESSION 04/28 CT CHEST WITH PULM NODULES, FOLLOWS WITH PULM 03/28 COLONOSCOPY, REINDL, REPEAT IN 2 YEARS SUBOPTIMAL PREP CLEMENCIA DEP CHRONIC PAIN, L SPINE, L ANKLE, L HIP VIT D DEF CHRONIC CONSTIPATION 12/01 CT CHEST - STABLE NODULES, NO FUTHER IMAGING REQUIRED ALLERGIES AMITIZA: ANAPHYLAXIS - ALLERGY ETHYL ALCOHOL: RASH, SOB - ALLERGY METFORMIN HCL: DYSPNEA, NAUSEA - ALLERGY CYMBALTA: SEVERE HEADACHES - SIDE EFFECTS SURGICAL HISTORY HYSTERECTOMY PARTIAL AND FULL 1992 CHOLECYSTECTOMY LEFT ANKLE REPAIR CERVICAL SPINE REPAIR X4 DCS TRIAL 05/2019 FAMILY HISTORY MOTHER: 69 YRS, DIAGNOSED WITH OTHER DAUGHTER(S): 29 YRS, DGT PASSED - DM1, HEART DISEASE, DIABETES 5 BROTHER(S) , 10 SISTER(S) - HEALTHY. 1DAUGHTER(S) . MOTHER- KIDNEY STONE 3 DAYS LATER\\NDAUGHTER- DIABETIC, LUPUS ( AT 29)\\N DID NOT KNOW FATHER. SOCIAL HISTORY GENERAL: TOBACCO USE ARE YOU A:CURRENT SMOKER ARE YOU INTERESTED IN QUITTING?NOT READY TO QUIT COUNSELED THE PATIENT ON SMOKING EFFECTS, EDUCATION [id number]/15/2019 HOW MANY CIGARETTES A DAY DO YOU SMOKE?5 OR LESS HOW OFTEN DO YOU SMOKE CIGARETTES?EVERY DAY PATIENT COUNSELED ON THE DANGERS OF TOBACCO USE AND URGED TO QUIT:05/19/2019 OTHERS AT HOME: SPOUSE. EDUCATION LEVEL OF EDUCATION:NOT FINISHED HIGH SCHOOL 10TH GRADE DIET: CONSISTENT CARBOHYDRATE. LANGUAGE LANGUAGES SPOKEN:JAPANESE DOMESTIC VIOLENCE DO YOU FEEL SAFE IN YOUR ENVIRONMENT?YES RECREATIONAL DRUG USE DRUG USE?NO EXERCISE: NONE. LEARNING BARRIERS / SPECIAL NEEDS BARRIERS TO LEARNING?NO HEARING IMPAIRED?NO VISION IMPAIRED?YES COGNITIVELY IMPAIRED?NO :CORRECTIVE LENSES READINESS TO LEARN?YES LEARNING PREFERENCES?NO LEARNING CAPABILITIES PRESENT?YES EMOTIONAL BARRIERS?NO SPECIAL DEVICES?NO CARBIDE POWDER PROCESSOR NEEDED?NO LUNG CANCER SCREENING SMOKING STATUS:CURRENT SMOKER IS THE PATIENT BETWEEN THE AGE OF 56 AND 78?NO PAIN CLINIC PFS, CLERGY, PUBLIC HEALTH REFERRALS PFS REFERRAL NEEDED?NO CLERGY REFERRAL NEEDED?NO PUBLIC HEALTH REFERRAL NEEDED?NO WAS THE PROVIDER NOTIFIED OF ANY PERTINENT INFO? N/A HAS THE PATIENT BEEN EDUCATED REGARDING HIS/HER PLAN OF CARE?YES HAS THE PATIENT BEEN EDUCATED REGARDING PAIN, THE RISK FOR PAIN, THE IMPORTANCE OF EFFECTIVE PAIN MANAGEMENT, AND THE PAIN ASSESSMENT PROCESS?YES LATEX QUESTIONNAIRE LATEX ALLERGY : HAVE YOU EVER DEVELOPED ANY TYPE OF REACTION AFTER HANDLING LATEX PRODUCTS SUCH RUBBER GLOVES, CONDOMS, DIAPHRAGMS, BALLOONS, SOCKS, OR UNDERWEAR?NO LATEX ALLERGY : HAVE YOU EVER DEVELOPED ANY TYPE OF REACTION DURING OR AFTER DENTAL APPOINTMENT, VAGINAL/RECTAL EXAMINATION, SURGICAL PROCEDURE, OR ANY OTHER EXPOSURE?NO DATE ASKED : 05/13/2019 LATEX RISK : HAVE YOU EVER HAD ANY DIFFICULTY BREATHING OR HIVES AFTER EATING OR HANDLING ANY FRUITS, OR VEGETABLES; SUCH KIWI, BANANAS, STONE FRUITS, OR CHESTNUTSNO LATEX RISK : DO YOU HAVE A PREVIOUS PERSONAL HISTORY OF MORE THAN NINE SURGERIES, SPINA BIFIDA, OR REPEATED CATHERIZATIONS? YES - PLEASE INDICATE : > 9 SURGERIES LATEX RISK : ARE YOU FREQUENTLY EXPOSED TO LATEX PRODUCTS IN YOUR OCCUPATION?NO CAFFEINE CAFFEINE USE?YES HOW OFTEN AND HOW MUCH? 2 CUPS COFFEE/DAY ADVANCE DIRECTIVE ADVANCE DIRECTIVE DISCUSSED WITH PATIENT:YES PATIENT DECLINES HCP INFORMATION. JAINISM [id number] FAITH MARITAL STATUS: . ALCOHOL SCREENING DID YOU HAVE A DRINK CONTAINING ALCOHOL IN THE PAST YEAR?NO POINTS0 INTERPRETATIONNEGATIVE OCCUPATION: NOT WORKING. REVIEWED WITH PT 09/13/18 1330 LAS11/07/18 REVIEWED WITH PT. ADREVIEWED WITH PT 11/12/18 1034 BVREVIEWED WITH PATIENT 01/17/19 1428 JS. 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 CONSTITUTIONAL: ANY CHANGE IN YOUR MEDICAL CONDITION? NO . CHILLS NO . FEVER NO . INFECTION: DO YOU HAVE NEW INFECTIONS? NO . DO YOU HAVE HISTORY OF MRSA? NO . MUSCULOSKELETAL: ANY NEW PATTERNS OF PAIN OR NUMBNESS? YES, INCISION SITE IS SORE . GASTROENTEROLOGY: ANY NEW CHANGE IN BOWEL CONTROL? NO . GENITOURINARY: ANY NEW CHANGE IN BLADDER CONTROL? NO . IS THERE A CHANCE YOU COULD BE ? NO . HEMATOLOGY/LYMPH: DO YOU TAKE ANY BLOOD THINNERS? (FOR EXAMPLE- COUMADIN, PLAVIX, AGGRENOX, PLATEL, PRADAXA, OR XARELTO) NO . WHEN WAS YOUR LAST DOSE? DATE: TIME: . NEUROLOGY: HAVE YOU FALLEN IN THE PAST 12 MONTHS? NO . ANY NEW EXTREMITY NUMBNESS OR WEAKNESS? NO . CARDIOLOGY: DO YOU HAVE A PACEMAKER OR DEFIBRILLATOR? NO . RESPIRATORY: HAVE YOU BEEN SICK IN THE PAST WEEK? NO . FEVER NO . FLU LIKE SYMPTOMS? NO . COUGH NO . INTEGUMENTARY: DO YOU HAVE ANY RASHES OR OPEN SORES? NO . ALLERGIC/IMMUNO: ARE YOU ALLERGIC TO IV DYE? NO . ANY NEW ALLERGIES? NO . PSYCHIATRIC: DO YOU HAVE THOUGHTS OF HURTING YOURSELF OR SOMEONE ELSE? NO . ARE YOU ABUSED, NEGLECTED, OR IN AN UNSAFE ENVIRONMENT? NO . ENDOCRINOLOGY: ARE YOU DIABETIC? YES . OTHER: DO YOU NEED ANY PRESCRIPTIONS? NO . IF YES, PLEASE LIST: ____ . ANY NEW PROBLEMS WITH YOUR MEDICATIONS? NO . WHEN DID YOU LAST EAT? ____ . WHEN DID YOU LAST DRINK? ____ . WHAT DID YOU LAST DRINK? ____ . NAME OF PERSON DRIVING YOU HOME? ____ . DO YOU HAVE ANY OTHER QUESTIONS OR CONCERNS NO . VITAL SIGNS WT 233.2 LBS, HT 64.5 IN, BMI 39.41 INDEX, BP 160/84 MM HG, HR 89 /MIN, RR 18 /MIN, TEMP 97.4 F, OXYGEN SAT % 97%, NA INITIALS SC 12:22, REVIEWED BY: EM. EXAMINATION GENERAL EXAMINATION: PATIENT IS ALERT O X 3 AND COOPERATIVE. THE PATIENT WAS BROUGHT INTO THE PROCEDURE ROOM. THE LEADS WERE COMPLETELY REMOVED. NO SIGNS OF INFECTION PRESENT. X-RAYS OF THE LEADS WERE DONE TODAY AND LEFT AT [facility] FOR FUTURE REFERENCE. ASSESSMENTS INTERVERTEBRAL DISC DISORDER WITH RADICULOPATHY OF LUMBAR REGION - M51.16 (PRIMARY) TREATMENT INTERVERTEBRAL DISC DISORDER WITH RADICULOPATHY OF LUMBAR REGION CLINICAL NOTES: WE DISCUSSED SEVERAL ISSUES WITH MS. GARRETT'S PAIN MANAGEMENT CASE. THE PATIENT HAD A DCS TRIAL PERFORMED ON 05/26/2019 AND IS HERE TODAY TO HAVE THE DEVICE'S LEAD PULLS REMOVED. THE PATIENT SAYS SHE EXPERIENCED GREAT PAIN RELIEF AND IS VERY HAPPY WITH THE RESULTS. THE PATIENT WOULD LIKE TO PURSUE THE DCS IMPLANT. I AM REFERRING THE PATIENT TO [facility] FOR THE SURGICAL IMPLANT. THE PATIENT WILL FOLLOWUP WITH THE NURSE PRACTITIONER FOR MEDICATIONS. INSTRUCTIONS WERE GIVEN, QUESTIONS WERE ANSWERED, PATIENT REPORTS UNDERSTANDING AND AGREES WITH THE PLAN. I, ANTELMO ALMODOVAR, DOCUMENTED THE ABOVE INFORMATION ACTING A SCRIBE FOR DR. LANDIN. I HAVE REVIEWED THE ABOVE DOCUMENT, WRITTEN BY ANTELMO ALMODOVAR SCRIBChnadan AND I VERIFY THAT IT IS ACCURATE. . DIAGNOSTIC IMAGING [facility] FLUORO GUIDANCE (PAIN)[id number] DISPOSITION & COMMUNICATION FOLLOW UP 4 WEEKS ELECTRONICALLY SIGNED BY RAMSES LANDIN MD, MD ON 06/03/2019 AT 03:33 PM EDT DISCLAIMER : THIS IS A VISIT SUMMARY EXTRACTED FROM THE [employer] CHART. IT IS NOT A COPY OF THE [employer] PROGRESS NOTE. BREANNED
== END ==
LOC: M PAIN 12:30
PROVIDERS: ATTEND Anesthesiology
DX: M51.16 Intervertebral disc disorders with radiculopathy, lumbar region (principal); E11.9 Type 2 diabetes mellitus without complications; F17.210 Nicotine dependence, cigarettes, uncomplicated; Z79.82 Long term (current) use of aspirin; Z79.4 Long term (current) use of insulin; Z79.899 Other long term (current) drug therapy; Z88.8 Allergy status to other drugs, medicaments and biological substances

== ENCOUNTER → 2019-08-17 | Outpatient (CLI) | payer BC ==
--- NOTE | 2019-08-17 14:10 | REP ---
Clinical: High risk factor. Tobacco use. . Comparison: 11/26/2015 . Technique: PA and lateral. Findings: The mediastinum and cardiac silhouette are normal. The lung villegas are clear and without acute consolidation, effusion, or pneumothorax. The skeletal structures are intact and normal. Impression: 1. No acute cardiopulmonary process. Electronically Signed by Edmond Wheeler MD 08/17/2019 02:01 P
== END ==
LOC: M ADAMS 13:50
PROVIDERS: ATTEND Physician Assistant
DX: R05 Cough (principal); Z72.0 Tobacco use

== ENCOUNTER → 2019-10-12 | Outpatient (REF) | payer BC ==
[2019-10-12 17:21] LABS: ALBUMIN 3.6 GM/DL (3.2-5.2); ALT/SGPT 32 U/L (12-78); BILIRUBIN,TOTAL 0.9 MG/DL (0.2-1.0); BLOOD UREA NITROGEN 14 MG/DL (7-18); CARBON DIOXIDE LEVEL 29 MEQ/L (21-32); CHLORIDE LEVEL 103 MEQ/L (98-107); CHOLESTEROL LEVEL 165 MG/DL (<200); CHOLESTEROL RISK RATIO 3.367 (<5); CREATININE FOR GFR 0.69 MG/DL (0.55-1.30); GLOMERULAR FILTRATION RATE > 60.0 (>51); GLUCOSE, FASTING 203 MG/DL (70-100); HDL CHOLESTEROL 49 MG/DL (>40); LDL CHOLESTEROL 85 MG/DL (<100); NON-HDL-C 116 MG/DL; POTASSIUM SERUM 4.6 MEQ/L (3.5-5.1); SODIUM LEVEL 138 MEQ/L (136-145); TOTAL PROTEIN 7.1 GM/DL (6.4-8.2); TRIGLYCERIDES LEVEL 154 MG/DL (<150)
[2019-10-12 17:30] LABS: HEMOGLOBIN A1c 9.1 %
[2019-10-13 11:18] LABS: TOTAL 25(OH) VITAMIN D 10.4 NG/ML (30.0-100.0)
== END ==
LOC: M SFHCADAM 08:28
PROVIDERS: ATTEND Physician Assistant Medical
DX: E11.9 Type 2 diabetes mellitus without complications (principal); E55.9 Vitamin D deficiency, unspecified

== ENCOUNTER → 2019-10-12 | Outpatient (CLI) | payer BC | LOC: M ADAMS 12:42 | PROVIDERS: ATTEND Physician Assistant Medical | DX: E11.9 Type 2 diabetes mellitus without complications (principal); E55.9 Vitamin D deficiency, unspecified ==

== ENCOUNTER → 2019-11-13 | Outpatient (REF) | payer BC ==
[2019-11-13 17:09] LABS: APPEARANCE, URINE CLOUDY (CLEAR); BACTERIA, URINE AUTO 3+ (NEGATIVE); BILIRUBIN, URINE AUTO NEGATIVE (NEGATIVE); BLOOD, URINE BLOOD NEGATIVE (NEGATIVE); COLOR, URINE YELLOW (YELLOW); GLUCOSE, URINE (UA) AUTO 3+ mg/dL (NEGATIVE); KETONE, URINE AUTO TRACE mg/dL (NEGATIVE); LEUKOCYTE ESTERASE, URINE AUTO NEGATIVE (NEGATIVE); MUCUS, URINE SMALL (NEGATIVE); NITRITE, URINE AUTO POSITIVE (NEGATIVE); PROTEIN, URINE AUTO NEGATIVE (NEGATIVE); RBC, URINE AUTO 1 /HPF (0-3); SPECIFIC GRAVITY URINE AUTO 1.021 (1.002-1.035); SQUAMOUS EPITHELIAL CELL UR AU 2 /HPF (0-6); WBC, URINE AUTO 18 /HPF (0-3)
== END ==
LOC: M SFHCADAM 16:24
PROVIDERS: ATTEND Physician Assistant Medical
DX: Z01.818 Encounter for other preprocedural examination (principal); M54.40 Lumbago with sciatica, unspecified side

== ENCOUNTER → 2019-12-26 | Outpatient (REF) | payer BC ==
[2019-12-26 17:27] LABS: CREATININE FOR GFR 0.66 MG/DL (0.55-1.30); GLOMERULAR FILTRATION RATE > 60.0 (>51)
== END ==
LOC: M LABDRWAD 16:41
PROVIDERS: ATTEND Physician Assistant Medical
DX: M47.14 Other spondylosis with myelopathy, thoracic region (principal); G96.19 Other disorders of meninges, not elsewhere classified; M54.6 Pain in thoracic spine

== ENCOUNTER → 2020-02-10 | Outpatient (REF) | payer BC ==
[2020-02-10 17:45] LABS: ALBUMIN 3.5 GM/DL (3.2-5.2); ALT/SGPT 37 U/L (12-78); BILIRUBIN,TOTAL 0.3 MG/DL (0.2-1.0); BLOOD UREA NITROGEN 10 MG/DL (7-18); CALCIUM LEVEL 9.3 MG/DL (8.5-10.1); CARBON DIOXIDE LEVEL 30 MEQ/L (21-32); CHLORIDE LEVEL 103 MEQ/L (98-107); CHOLESTEROL LEVEL 161 MG/DL (<200); CHOLESTEROL RISK RATIO 3.425 (<5); CREATININE FOR GFR 0.59 MG/DL (0.55-1.30); GLOMERULAR FILTRATION RATE > 60.0 (>51); GLUCOSE, FASTING 139 MG/DL (70-100); HDL CHOLESTEROL 47 MG/DL (>40); LDL CHOLESTEROL 80 MG/DL (<100); NON-HDL-C 114 MG/DL; POTASSIUM SERUM 4.2 MEQ/L (3.5-5.1); SODIUM LEVEL 139 MEQ/L (136-145); TRIGLYCERIDES LEVEL 172 MG/DL (<150)
[2020-02-10 18:22] LABS: HEMOGLOBIN A1c 9.3 %
== END ==
LOC: M SFHCADAM 13:31
PROVIDERS: ATTEND Physician Assistant Medical
DX: E11.43 Type 2 diabetes mellitus with diabetic autonomic (poly)neuropathy (principal)

== ENCOUNTER → 2020-11-12 | Outpatient (REF) | payer BC ==
[2020-11-12 16:45] LABS: BASO # 0.1 10^3/uL (0.0-0.2); BASO % 0.5 % (0.0-1.0); EOS # 0.1 10^3/uL (0.0-0.5); EOS % 1.4 % (0.0-3.0); HEMATOCRIT 46.5 % (36.0-47.0); HEMOGLOBIN 15.6 g/dl (12.0-15.5); LYMPH # 3.4 10^3/uL (1.5-5.0); MEAN CORPUSCULAR HEMOGLOBIN 30.4 pg (27.0-33.0); MEAN CORPUSCULAR HGB CONC 33.5 g/dl (32.0-36.5); MEAN CORPUSCULAR VOLUME 90.6 fl (80.0-96.0); MONO # 0.6 10^3/uL (0.0-0.8); MONO % 6.4 % (0.0-5.0); NEUTROPHILS # 4.9 10^3/uL (1.5-8.5); NEUTROPHILS % 53.5 % (36.0-66.0); PLATELET COUNT, AUTOMATED 322 10^3/uL (150-450); RED BLOOD COUNT 5.13 10^6/uL (4.00-5.40); WHITE BLOOD COUNT 9.2 10^3/uL (4.0-10.0)
[2020-11-12 17:16] LABS: ALBUMIN 3.7 GM/DL (3.2-5.2); ALT/SGPT 67 U/L (12-78); BILIRUBIN,TOTAL 0.4 MG/DL (0.2-1.0); BLOOD UREA NITROGEN 11 MG/DL (7-18); CALCIUM LEVEL 9.7 MG/DL (8.5-10.1); CARBON DIOXIDE LEVEL 32 MEQ/L (21-32); CHLORIDE LEVEL 100 MEQ/L (98-107); CHOLESTEROL LEVEL 184 MG/DL (<200); CHOLESTEROL RISK RATIO 3.285 (<5); CREATININE FOR GFR 0.59 MG/DL (0.55-1.30); GLOMERULAR FILTRATION RATE > 60.0 (>51); GLUCOSE, FASTING 212 MG/DL (70-100); HDL CHOLESTEROL 56 MG/DL (>40); LDL CHOLESTEROL 82 MG/DL (<100); NON-HDL-C 128 MG/DL; POTASSIUM SERUM 4.5 MEQ/L (3.5-5.1); SODIUM LEVEL 139 MEQ/L (136-145); TOTAL 25(OH) VITAMIN D 10.3 NG/ML (30.0-100.0); TOTAL PROTEIN 7.5 GM/DL (6.4-8.2); TRIGLYCERIDES LEVEL 232 MG/DL (<150)
[2020-11-12 17:31] LABS: HEMOGLOBIN A1c 11.2 %
== END ==
LOC: M SFHCADAM 15:03
PROVIDERS: ATTEND Physician Assistant Medical
DX: E11.43 Type 2 diabetes mellitus with diabetic autonomic (poly)neuropathy (principal); K76.0 Fatty (change of) liver, not elsewhere classified; E55.9 Vitamin D deficiency, unspecified; E66.01 Morbid (severe) obesity due to excess calories

== ENCOUNTER → 2021-08-18 | Outpatient (CLI) | payer BC, MEDICAID, OTHER ==
[~2021-08-18] MED LIST changes: +GABA-283 PO; -GABA-845 PO; -GLYB5TA PO; +GLYB5TAB6 PO
--- NOTE | 2021-08-18 11:54 | REP ---
INDICATION: PAIN IN BOTH HIPS. COMPARISON: None TECHNIQUE: Two views each hip FINDINGS: There is bilateral asymmetric hip joint space narrowing which is moderate in appearance. There is no fracture, dislocation, or subluxation. There is no buttressing or prominent marginal osteophytosis. IMPRESSION: Chronic changes seen bilaterally. <Electronically signed by Deny Cardozo > 08/18/21 2243
--- NOTE | 2021-08-18 12:40 | REP ---
INDICATION: PAIN IN BOTH HIPS. COMPARISON: None. TECHNIQUE: Five views FINDINGS: Tiny marginal osteophytosis is seen bilaterally at every level but more significantly at the L1-2 level on the left. There is no evidence of spondylolysis or spondylolisthesis. There is mild posterior disc space narrowing at every level. There is mild anterior lipping at every level. Degenerative facet joint changes are seen bilaterally at L4-5 and L5-S1. Vertebral body height and alignment is within normal limits. IMPRESSION: Chronic changes as described above. <Electronically signed by Deny Cardozo > 08/18/21 0789
== END ==
LOC: M ADAMS 08:38
PROVIDERS: ATTEND Physician Assistant Medical
DX: M25.78 Osteophyte, vertebrae (principal); M51.36 Other intervertebral disc degeneration, lumbar region; M51.37 Other intervertebral disc degeneration, lumbosacral region; M16.0 Bilateral primary osteoarthritis of hip

== ENCOUNTER → 2021-09-27 | Outpatient (REF) | payer MEDICAID, OTHER ==
[2021-09-27 12:41] LABS: BASO % 0.5 % (0.0-1.0); EOS # 0.1 10^3/uL (0.0-0.5); EOS % 1.2 % (0.0-3.0); HEMATOCRIT 43.9 % (36.0-47.0); HEMOGLOBIN 14.8 g/dl (12.0-15.5); LYMPH # 2.5 10^3/uL (1.5-5.0); LYMPH % 32.2 % (24.0-44.0); MEAN CORPUSCULAR HEMOGLOBIN 30.3 pg (27.0-33.0); MEAN CORPUSCULAR HGB CONC 33.7 g/dl (32.0-36.5); MONO # 0.5 10^3/uL (0.0-0.8); MONO % 6.9 % (2.0-8.0); NEUTROPHILS # 4.5 10^3/uL (1.5-8.5); NEUTROPHILS % 58.7 % (36.0-66.0); PLATELET COUNT, AUTOMATED 285 10^3/uL (150-450); RED BLOOD COUNT 4.88 10^6/uL (4.00-5.40); WHITE BLOOD COUNT 7.7 10^3/uL (4.0-10.0)
[2021-09-27 13:08] LABS: ALBUMIN 3.6 GM/DL (3.2-5.2); ALT/SGPT 45 U/L (12-78); BILIRUBIN,TOTAL 0.4 MG/DL (0.2-1.0); BLOOD UREA NITROGEN 14 MG/DL (7-18); CALCIUM LEVEL 9.3 MG/DL (8.5-10.1); CARBON DIOXIDE LEVEL 31 MEQ/L (21-32); CHLORIDE LEVEL 102 MEQ/L (98-107); CHOLESTEROL LEVEL 159 MG/DL (<200); CHOLESTEROL RISK RATIO 3.613 (<5); CREATININE FOR GFR 0.67 MG/DL (0.55-1.30); GLOMERULAR FILTRATION RATE > 60.0 (>51); GLUCOSE, FASTING 261 MG/DL (70-100); HDL CHOLESTEROL 44 MG/DL (>40); LDL CHOLESTEROL 79 MG/DL (<100); NON-HDL-C 115 MG/DL; POTASSIUM SERUM 4.1 MEQ/L (3.5-5.1); SODIUM LEVEL 138 MEQ/L (136-145); TRIGLYCERIDES LEVEL 178 MG/DL (<150)
[2021-09-27 13:19] LABS: HEMOGLOBIN A1c 9.7 %
== END ==
LOC: M SFHCADAM 10:34
PROVIDERS: ATTEND Physician Assistant Medical
DX: E11.65 Type 2 diabetes mellitus with hyperglycemia (principal); E55.9 Vitamin D deficiency, unspecified

== ENCOUNTER 2023-03-16 07:25 | Day surgery (SDC) | payer OTHER ==
[~2023-03-16] VITALS: Ht 163.8 cm; Wt 106.6 kg
[~2023-03-16 07:25] MED LIST changes: +NS 1,000 ML IV ONE; +glargine insulin SC
[2023-03-16] MEDS ORDERED: LIDOCAINE 2% 100MG/5ML SDV (FOR ANES.) As Ordered ONE (07:54)
[2023-03-16] MEDS ORDERED: propofoL 200 MG/20 ML VIAL As Ordered ONE (07:54)
[2023-03-16 09:40] VITALS: BP 141/85
== END 2023-03-16 09:46 | disposition home or self-care (01) ==
LOC: M OPP 07:25
PROVIDERS: ATTEND Internal Medicine Gastroenterology
DX: D12.3 Benign neoplasm of transverse colon (principal); K64.8 Other hemorrhoids; K59.00 Constipation, unspecified